=== PATIENT | male | born 1960 | race Caucasian/White ===

== ENCOUNTER 2017-02-27 20:25 | Inpatient (IN) | payer OTHER ==
[~2017-02-27] VITALS: Ht 172.7 cm; Wt 73.0 kg
[2017-02-27] MEDS: NACL 0.9% 1,000 ML IV SCH (02:20)
--- NOTE | 2017-02-27 20:25 | NUR ---
PATIENT BIB ALS TO ER BED 3.
[2017-02-27 20:30] VITALS: BP 76/42
--- NOTE | 2017-02-27 20:32 | NUR ---
50 y/o F BIBA C/O ALOC, LOW BP, WITH FENTANYL AND LIDOCAINE PATCHES AND PARAMEDICS REMOVED, BREATHING TREATMENT WAS GIVEN ENROUTE, BS 160 MG/DL. ER MD AND RT AT BEDSIDE.
--- NOTE | 2017-02-27 20:34 | NUR ---
PATIENT BEING EVALUATED BY DR. HINOJOSA.
[2017-02-27] MEDS ORDERED: NACL 0.9% 2,500 ML IV ONE (20:40)
[2017-02-27] MEDS ORDERED: LEVOFLOXACIN 750 MG/D5W PREMIX 150 ML IV ONE (20:45)
[2017-02-27] MEDS ORDERED: VANCOMYCIN PER PHARMACY MC ONE (20:45)
[2017-02-27] MEDS ORDERED: VANCOMYCIN 1GM/DEXT 5% PREMIX 200 ML IV ONE (20:45)
[2017-02-27 21:27] LABS: BASOPHILS # (AUTO) 0.1 K/uL (0.00-0.22); BASOPHILS % (AUTO) 0.7 % (0.0-2.0); EOSINOPHILS # (AUTO) 0.1 K/uL (0-0.4); HEMATOCRIT 30.5 % (36-52); HEMOGLOBIN 9.6 g/dL (12.0-18.0); LYMPHOCYTES # (AUTO) 0.9 K/uL (2.0-11.5); LYMPHOCYTES % (AUTO) 6.6 % (20.5-51.1); MEAN CORPUSCULAR HEMOGLOBIN 26 pg (27-31); MEAN CORPUSCULAR HGB CONC 32 g/dL (33-37); MEAN CORPUSCULAR VOLUME 82 fL (80-94); MONOCYTES # (AUTO) 1.5 K/uL (0.8-1.0); MONOCYTES % (AUTO) 11.8 % (1.7-9.3); NEUTROPHILS # (AUTO) 10.4 K/uL (1.8-7.7); NEUTROPHILS % (AUTO) 79.9 % (42.2-75.2); PLATELET COUNT (AUTO) 243 K/uL (140-450); RED BLOOD CELL COUNT(AUTO) 3.71 MIL/uL (4.20-6.10); RED CELL DISTRIBUTION WIDTH 14.6 % (11.6-13.7)
[2017-02-27 21:51] LABS: ALBUMIN 3.1 g/dL (3.4-5.0); ANION GAP 7.4 (8-16); CALCIUM 10.1 mg/dL (8.5-10.1); CREATININE 1.9 mg/dL (0.6-1.3); POTASSIUM 5.2 mmol/L (3.5-5.1); TOTAL BILIRUBIN 0.1 mg/dL (0.0-1.0); TOTAL PROTEIN, SERUM 9.1 g/dL (6.4-8.2)
[2017-02-27 22:01] LABS: CARBON DIOXIDE 41.8 mmol/L (21-32)
--- NOTE | 2017-02-27 22:10 | NUR ---
PT PLACED ON VENT PER DR HINOJOSA. AC 16, VT 500, PEEP +5, FI02 40% POST ABG. SUCTIONED MOD AMT OF THICK/THIN PINK TINGED SECRETIONS FOR SPUTUM C/S. TOLERATED WELL. PT HAS A SHILEY 8 TRACH, NO RESP DISTRESS NOTED AT THIS TIME. WILL CONT TO MONITOR.
--- NOTE | 2017-02-27 22:10 | NUR ---
Parris villarreal in ED - 02/28/17 at 0052 by MAJO L SUBCLAVIAN CENTRAL LINE PLACED BI DR HINOJOSA. PT TOLERATED WELL.
--- NOTE | 2017-02-27 22:10 | NUR ---
PT PLACED ON VENTILATOR BY RT.AC 16, VT 500, PEEP5, QRR413%. TRACH WITH A SHILY 8.
[2017-02-27 22:19] LABS: BLOOD GAS BASE EXCESS 10.8 mmol/L (-2.0-2.0); BLOOD GAS HCO3 43.7 mmol/L; BLOOD GAS PH 7.097 (7.35-7.45); BLOOD GAS PO2 242.3 mmHg
[2017-02-27 22:20] LABS: BLOOD GAS O2 SAT% 99.3 % (92.0-98.5)
[2017-02-27 22:21] VITALS: BP 93/54
[2017-02-27] MEDS ORDERED: VANCOMYCIN 1,000 MG VIAL ONE (22:33)
--- NOTE | 2017-02-27 22:45 | NUR ---
L SUBCLAVIAN CENTRAL LINE PLACED BI DR HINOJOSA. PT TOLERATED WELL.
[2017-02-27 22:58] LABS: APPEARANCE,URINE CLEAR (CLEAR); BILIRUBIN,URINE 1+ (NEGATIVE); BLOOD, URINE NEGATIVE (NEGATIVE); COLOR,URINE YELLOW (YELLOW); LEUKOCYTE ESTERASE ,URINE NEGATIVE (NEGATIVE); NITRITE, URINE NEGATIVE (NEGATIVE); PROTEIN,URINE TRACE (NEGATIVE); UGLUCOSE NEGATIVE (NEGATIVE); UROBILINOGEN,URINE 0.2 EU/dL (0.2 - 1)
[2017-02-27 23:11] LABS: BACTERIA,URINE 1+ /HPF (None Seen); ICTOTEST NEGATIVE (NEGATIVE); RBC,URINE 0-5 (RARE) /HPF (0-5); SQUAMOUS EPITHELIAL CELL,UR 4-10 (MOD) /LPF (0-3 (FEW)); WBC,URINE 0-5 (RARE) /HPF (0-5)
[2017-02-27] MEDS ORDERED: ONDANSETRON 4 MG/2 ML VIAL IVP PRN (23:55)
[2017-02-27] MEDS ORDERED: ACETAMINOPHEN 325 MG TAB PO PRN (23:55)
[2017-02-27] MEDS ORDERED: LORazepam 2 MG/ML VIAL IVP PRN (23:55)
[2017-02-28] VITALS (18 sets, daily range): BP systolic 93–139; BP diastolic 46–71
[2017-02-28] MEDS ORDERED: VANCOMYCIN PER PHARMACY MC PRN (00:05)
--- NOTE | 2017-02-28 00:10 | NUR ---
PT AWAKE, TORATING SUPPORT WELL. SUCTIONED SMALL AMT OF THICK YEL, BROWN TINGE SECRETIONS, TOLERATED WELL. ABG DONE RESULTS REPORTED TO DR HINOJOSA.
[2017-02-28 00:26] LABS: BLOOD GAS BASE EXCESS 6.9 mmol/L (-2.0-2.0); BLOOD GAS HCO3 32.8 mmol/L; BLOOD GAS PCO2 55.7 mmHg (20-50); BLOOD GAS PH 7.388 (7.35-7.45); BLOOD GAS PO2 85.1 mmHg
[2017-02-28 00:27] LABS: BLOOD GAS O2 SAT% 96.7 % (92.0-98.5)
[2017-02-28] MEDS ORDERED: NACL 0.9% 2,000 ML IV ONE (00:35)
--- NOTE | 2017-02-28 00:40 | NUR ---
ER NOTIFIED OF BP DROPPED OF 82/47.
--- NOTE | 2017-02-28 01:10 | NUR ---
Patient will be admitted to [facility]. Admited to ICU. Will go to room ICU 1. Belongings list completed. Report to LUIS MCINTYRE.
--- NOTE | 2017-02-28 01:30 | NUR ---
TRANSFERRED TO ICU1 PLACED ON SAME VENT WITH SAME PARAMETERS, TOLERATED WELL.
[2017-02-28] MEDS ORDERED: LISI40TA4 PO (01:33)
[2017-02-28] MEDS ORDERED: FERR75LI22 PO (01:33)
[2017-02-28] MEDS ORDERED: LIDO5TDM3 TP (01:33)
[2017-02-28] MEDS ORDERED: ASPI81CT89 PO (01:33)
[2017-02-28] MEDS ORDERED: FENT25TD TD (01:33)
[2017-02-28] MEDS ORDERED: LACT10SO1 PO (01:33)
[2017-02-28] MEDS ORDERED: CLON0.1T42 PO (01:33)
[2017-02-28] MEDS ORDERED: LANS30EC68 PO (01:33)
[2017-02-28] MEDS ORDERED: CARB1TER4 PO (01:33)
[2017-02-28] MEDS ORDERED: DOCU-67 PO (01:33)
[2017-02-28] MEDS ORDERED: HYDR-4452 PO (01:33)
[2017-02-28] MEDS ORDERED: FLUO10CA21 PO (01:33)
[2017-02-28] MEDS ORDERED: GABA300C PO (01:33)
[2017-02-28] MEDS ORDERED: LORA10TA19 PO (01:35)
[2017-02-28] MEDS ORDERED: LORA-476 PO (01:35)
[2017-02-28] MEDS ORDERED: TRAZ-286 PO (01:38)
[2017-02-28] MEDS ORDERED: MIRABULK PO (01:38)
[2017-02-28] MEDS ORDERED: PIRO10CA PO (01:38)
--- NOTE | 2017-02-28 01:42 | NUR ---
PT TRASFERRED TO ICU VIA GURNEY, ACCOMPANIED BY RT, RN AND EMT.
--- NOTE | 2017-02-28 01:45 | NUR ---
RECEIVED PT TRANSFERRED FROM ER VIA RGIRARD, INITIAL ASSESSMENT STARTED, PT IS AWAKE, APHASIC, NOT ABLE TO FOLLOW COMMANDS AND MAKE NEEDS KNOWN. VSS. FLACC O. TRACH TO VENT WITH SETTING OF FIO2 40, RR 16, TV 500, PEEP 5, NO S/S OF SOB/DISTRESS, CLEAR LUNG SOUNDS. C-COLLAR IN PLACE NOTED, ST ON MONITOR WITH REGULAR HR. SOFT ABDOMEN WITH ACTIVE BOWEL SOUNDS, NPO AT THIS TIME, INCONTINENT WITH B&B'S, SEVERE WEAKNESS TO ALL EXTREMITIES, CENTRAL LINE TO LEFT SUBCLAVIAN, TLC, PATIENT AND GOOD BLOOD RETURN TO EACH LUMEN, RUNNING NS AT 100ML/HR, IV SITE TO RIGHT HAND 20GA, SL. SKIN IS WARM AND DRY TO TOUCH, OPEN WOUND PRESENT, PICTURE TAKEN (SEE WOUND ASSESSMENT). SAFETY MEASURES INPLACE AND HOB ELEVATED TO 30 DEGREES, CALL LIGHT WITHIN REACH, WILL CONTINUE TO MONITOR.
[2017-02-28] MEDS: IPRATROPIUM 0.02% 0.5 MG/2.5 ML NEBU INH SCH ×4 (02:30→19:02)
[2017-02-28] MEDS: ALBUTEROL 0.083% 2.5 MG/3 ML NEBU INH SCH ×4 (02:30→19:02)
--- NOTE | 2017-02-28 03:53 | NUR ---
PAGED AND CALLED DR. TOSCANO, NOTIFIED OF PT'S TEMPERATURE OF 102.3. WITH ORDERS MADE. WILL CONTINUE TO MONITOR.
--- NOTE | 2017-02-28 04:00 | NUR ---
NO CHANGE OF CONDITION AT THIS TIME, VSS. POSITION CHANGED FOR OFFLOAD PRESSURE.
[2017-02-28] MEDS ORDERED: ACETAMINOPHEN 650 MG SUPP RC PRN (04:10)
[2017-02-28] MEDS ORDERED: PIPERACILLIN/TAZOBACTAM 3.375 GM in DEXTROSE 5% 50 ML IV SCH (05:00)
[2017-02-28] MEDS ORDERED: PIPERACILLIN/TAZOBACTAM 3.375 GM VIAL IV ONE (05:19)
[2017-02-28 05:23] LABS: BASOPHILS # (AUTO) 0.1 K/uL (0.00-0.22); HEMATOCRIT 22.9 % (36-52); MONOCYTES # (AUTO) 1.4 K/uL (0.8-1.0); RED CELL DISTRIBUTION WIDTH 14.2 % (11.6-13.7); WHITE BLOOD COUNT (AUTO) 10.9 K/uL (4.8-10.8)
[2017-02-28 05:55] LABS: BASOPHILS % (AUTO) 0.8 % (0.0-2.0); EOSINOPHILS # (AUTO) 0.1 K/uL (0-0.4); LYMPHOCYTES % (AUTO) 9.1 % (20.5-51.1); MEAN CORPUSCULAR HEMOGLOBIN 26 pg (27-31); MEAN CORPUSCULAR HGB CONC 31 g/dL (33-37); MEAN CORPUSCULAR VOLUME 82 fL (80-94); MONOCYTES % (AUTO) 12.4 % (1.7-9.3); NEUTROPHILS # (AUTO) 8.3 K/uL (1.8-7.7); NEUTROPHILS % (AUTO) 76.7 % (42.2-75.2); PLATELET COUNT (AUTO) 164 K/uL (140-450)
[2017-02-28 06:00] LABS: HEMOGLOBIN 7.2 g/dL (12.0-18.0)
--- NOTE | 2017-02-28 06:00 | NUR ---
CRITICAL LAB RESULT WITH HGB7.2, PAGED DR. POWERS AND NEW ORDER OBTAINED AND CARRIED OUT.
[2017-02-28 06:26] LABS: ALBUMIN 2.4 g/dL (3.4-5.0); ANION GAP 9.4 (8-16); CALCIUM 8.8 mg/dL (8.5-10.1); CARBON DIOXIDE 33.5 mmol/L (21-32); CREATININE 1.4 mg/dL (0.6-1.3); POTASSIUM 3.9 mmol/L (3.5-5.1); TOTAL BILIRUBIN 0.2 mg/dL (0.0-1.0)
--- NOTE | 2017-02-28 06:27 | NUR ---
REC'D PT ON [facility] VENT SETTINGS AC16 VT 500 PEEP 5 FIO2 40% ALARMS ON AND FUNCTIONING PROPERLY, AMBU BAG AT SIDE OF VENTILATOR AND VENTILATOR IS PLUGGED INTO RED OUTLET, I\L TX GIVEN WITH ALBUTEROL 2.5MG AND ATROVENT 0.5MG WITH NO ADVERSE REACTION POST TX, SNX PT SMALL AMT OF THIN YELLOW SECRETIONS, PT IS TRACH WITH SHILEY 8 AND SKIN INTEGRITY IS INTACT, PT IS WEARING A C-COLLAR
[2017-02-28] MEDS: MORPHINE SULFATE 2 MG/ML SYR IVP PRN ×4 (06:38→22:16)
--- NOTE | 2017-02-28 07:15 | NUR ---
REPORT GIVEN TO LUIS CHERY FOR CONTINUE OF CARE.
--- NOTE | 2017-02-28 07:30 | NUR ---
RECEIVED REPORT FROM LUIS MCINTYRE. PT IS ALERT AND ORIENTED X 3. ABLE TO MAKE SIMPLE NEEDS KNOWN. SPEECH IS UNCLEAR D/T TRACH. PT IS TRACH TO VENT. A/C VC, FIO2 40%, AC 16, TV 500, PEEP 5. TOLERATED WELL. SUCTION DONE. SUCTIONED MODERATE AMUONT OF THICK YELLOW SPUTUM. ST ON MONITOR. ABLE TO WIGGLE HAND AND FOOT BILATERALLY. EXTREMELY WEAK BUE AND BLE. RANGE IS LIMITED FOR BUE AND BLE. PAIN NOTED WHEN ATTEMPTED ROM. MEDICATED PRIOR TO ASSESSMENT. WILL CONTINUE TO MONITOR. EDEMA NOTED ON BUE. ARM RAISED. SKIN NOT INTACT. LEFT GROIN BLISTER NOTED. DRESSING INTACT. LEFT BUTTOCKS WOUND NOTED. DRESSING CHANGED. CLEAN AND INTACT. R HAND 20 GUAGE IV NOTED. INTACT AND PATENT. SALINE LOCKED. LEFT SUBCLAVIAN TRIPLE LUMEN CENTRAL LINE NOTED. INTACT AND PATENT. SAFETY AND ASPIRATION PRECAUTION IN PLACED. WILL CONTINUE TO MONITOR
--- NOTE | 2017-02-28 08:10 | NUR ---
ABG DRAWN ON RR WITHOUT INCIDENT AND RESULTS CALLED AND READ TO DR. POWERS WITH CHANGE MADE TO FIO2 DECREASED TO 30% AND LUIS CHERY.
--- NOTE | 2017-02-28 08:12 | NUR ---
ATTEMPTED TO PAGE DR. PEREZ. WAS TOLD DR. POWERS TILE LAYER DRAINAGE. WILL RECEIVE CALL BACK FROM DR. POWERS.
[2017-02-28 08:16] LABS: BLOOD GAS BASE EXCESS 3.7 mmol/L (-2.0-2.0); BLOOD GAS HCO3 27.6 mmol/L; BLOOD GAS O2 SAT% 98.5 % (92.0-98.5); BLOOD GAS PCO2 38.6 mmHg (20-50); BLOOD GAS PH 7.472 (7.35-7.45)
--- NOTE | 2017-02-28 08:16 | NUR ---
RECEIVED CALL BACK FROM DR. POWERS. REPORT GIVEN REGARDING BLOOD TRANSFUSION CONSENT AND LOVENOX ORDER WELL SCD ORDERS. WILL CARRY OUT NEW ORDERS.
--- NOTE | 2017-02-28 08:21 | NUR ---
PATIENT HAS BEEN SCREENED AND CATEGORIZED HIGH NUTRITION RISK. PATIENT WILL BE SEEN WITHIN 1-2 DAYS OF ADMISSION. 02/28/17-03/01/[address]
[2017-02-28] MEDS ORDERED: ENOXAPARIN 40 MG/0.4 ML SYR SUBQ SCH (09:00)
--- NOTE | 2017-02-28 09:00 | NUR ---
VENT CHECK, PT IS AWAKE WITH NO SIGNS OF DISTRESS NOTED AT THIS TIME, NO SXN REQUIRED AT THIS TIME, AIRWAY IS PATENT
--- NOTE | 2017-02-28 09:05 | NUR ---
MEDICATION GIVEN. TOLERATED WELL. PERIPHERAL IV INTACT AND PATENT. CENTRAL LINE INTACT AND PATENT.
[2017-02-28] MEDS: PANTOPRAZOLE 40 MG INJ VIAL IVP SCH (09:07)
[2017-02-28] MEDS: NACL 0.9% 1,000 ML IV SCH ×2 (09:52→20:14)
--- NOTE | 2017-02-28 10:40 | NUR ---
DR. POWERS AT BEDSIDE TO SEE PATIENT. WILL FOLLOW UP WITH NEW ORDERS
[2017-02-28] MEDS ORDERED: HYDROcodone/APAP 10/325 MG 1 TAB TAB PO SCH (10:50)
[2017-02-28] MEDS ORDERED: DEXTROSE 50% 50 ML SYR IVP PRN (10:50)
[2017-02-28] MEDS ORDERED: cloNIDine 0.1 MG TAB PO PRN (10:50)
[2017-02-28] MEDS ORDERED: INSULIN LISPRO SLIDING SCALE 100 UNITS/ML VIAL SUBQ PRN (10:50)
[2017-02-28] MEDS ORDERED: POLYETHYLENE GLYCOL 17 GM/PKT PO PRN (10:50)
[2017-02-28] MEDS ORDERED: MILD SOAP AND WATER TP PRN (11:00)
[2017-02-28] MEDS ORDERED: Z-GUARD PASTE TP PRN (11:00)
[2017-02-28] MEDS ORDERED: COMPOSITE DRESSING TP PRN (11:00)
[2017-02-28] MEDS ORDERED: NACL 0.9% IRR 250 ML BOTTLE IR PRN (11:00)
--- NOTE | 2017-02-28 11:03 | NUR ---
VENT CHECK, SXN PT SMALL AMT OF THIN YELLOW SECRETIONS DR. POWERS WANTS PT TO BE PLACED ON CPAP IF PT DOESNT GO APNEIC THEN PLACED ON TBAR
--- NOTE | 2017-02-28 11:12 | NUR ---
PT WAS GIVEN ATIVAN AND MORPHINE I INFORMED DR. POWERS AND ORDERED TO TRY CPAP AT 1400
--- NOTE | 2017-02-28 11:15 | NUR ---
NGT INSERTED FROM RIGHT NOSTRIL. TOLERATED WELL. AUSCULTATE FOR PLACEMENT. MINIMAL GREENISH RESIDUAL NOTED.
--- NOTE | 2017-02-28 11:30 | NUR ---
GLOBE MOUNTER AT BEDSIDE.
[2017-02-28] MEDS: BLOOD GLUCOSE MONITORING 1 DEV DEV FS SCH ×3 (11:38→21:12)
--- NOTE | 2017-02-28 11:40 | NUR ---
NOTIFIED PT OF BLOOD TRANSFUSION. PT VERBALIZED UNDERSTANDING. VERBAL CONSENT RECEIVED. PT UNABLE TO SIGN D/T SEVERE WEAKNESS OF EXTREMITIES. NO NEXT OF KIN AVAILABLE. AWARE.
[2017-02-28] MEDS: LORazepam 1 MG TAB GT SCH ×3 (12:00→23:23)
--- NOTE | 2017-02-28 12:05 | NUR ---
BLOOD TRANSFUSION STARTED. WILL CONTINUE TO MONITOR PER PROTOCOL.
--- NOTE | 2017-02-28 12:20 | NUR ---
ASSESS PT. V/S ARE STABLE. NO S/SX OF ACUTE DISTRESS NOTED. WILL CONTINUE TO MONITOR
[2017-02-28] MEDS: GABAPENTIN 300 MG CAP GT SCH ×2 (12:26→21:13)
[2017-02-28] MEDS: CARBIDOPA/LEVODOPA 25/100 MG 1 TAB GT SCH ×2 (12:26→16:09)
[2017-02-28] MEDS: FERROUS SULFATE 300 MG/5 ML UDC GT SCH ×2 (12:26→16:09)
--- NOTE | 2017-02-28 12:33 | NUR ---
MEDICATION GIVEN THROUGH NG TUBE. TOLERATED WELL. WILL CONTINUE TO MONITOR
--- NOTE | 2017-02-28 12:35 | NUR ---
ASSESS PT. V/S ARE STABLE. NO S/SX OF ACUTE DISTRESS. PT WAS AWAKE AND VERBALIZE NO PAIN
[2017-02-28] MEDS: PIPER/TAZO 3.375GM/D5W PREMIX 50 ML IV SCH ×2 (12:42→21:10)
--- NOTE | 2017-02-28 12:47 | NUR ---
VENT CHECK, I\L TX GIVEN WITH ALBUTEROL 2.5MG AND ATROVENT 0.5MG WITH NO ADVERSE REACTION POST TX B\S ARE DIMINISHED AND AIRWAY IS PATENT
--- NOTE | 2017-02-28 12:55 | NUR ---
STARTED PT ON NG TUBE FEEDING, PLACEMENT CHECKED. NO DISCOMFORT NOTED AT THIS TIME. WILL CONTINUE TO MONITOR.
[2017-02-28] MEDS: Z-GUARD PASTE TP SCH (13:00)
[2017-02-28] MEDS: MILD SOAP AND WATER TP SCH (13:00)
[2017-02-28] MEDS: NACL 0.9% IRR 250 ML BOTTLE IR SCH (13:00)
[2017-02-28] MEDS: COMPOSITE DRESSING TP SCH (13:00)
--- NOTE | 2017-02-28 14:15 | NUR ---
PT PLACED ON CPAP 5 PS 10 FIO2 30% PT IS SLEEPING WITH NO SIGNS OF DISTRESS NOTED AT THIS TIME
--- NOTE | 2017-02-28 14:17 | NUR ---
02/28/17 RD INITIAL ASSESSMENT COMPLETED PLEASE REFER TO NUTRITION ASSESSMENT UNDER CARE ACTIVITY FOR ESTIMATED NUTRITIONAL NEEDS. RD RECOMMENDATIONS: 1. CONTINUE DIABETISOURCE AC AT 10 ML/HR MEDICALLY APPROPRIATE PER MD. IF/WHEN PT PASSES SWALLOW EVAL, CONSIDER 2 GM NA DIET WITH TEXTURE RECOMMENDATIONS PER ST. 2. IF PT DOES NOT PASS SWALLOW EVAL AND TO REMAIN ON TUBEFEEDING, CONSIDER INCREASING DIABETISOURCE AC TOLERATED TO GOAL OF 65 ML/HR WITH 200 ML OF FREE WATER FLUSH Q6H OR PER MD. AT GOAL RATE WITH FREE WATER FLUSH, TUBE FEEDING WILL PROBIDE 1560 ML TOTAL VOLUME, 1872 KCAL, 93 GM OF PROTEIN, AND 2276 ML OF FREE WATER (ADEQUATE TO MEET 91% OF ESTIMATED KCAL AND PROTEIN NEEDS). 3. RD WILL CONSIDER MICRONUTRIENT SUPPLEMENTATION FOR WOUND HEALING DURING FOLLOW UP VISIT OR PER WOUND CARE EVALUATION. 4. RD WILL F/U 2-3 DAYS; HIGH RISK. CARRIE CUEVAS RD
--- NOTE | 2017-02-28 15:05 | NUR ---
PT PLACED ON COOL AEROSOL AT 30% T-PIECE HR 95 RR 21 O2 SAT 97% PT IS RESTING WITH NO SIGNS OF DISTRESS IF PT SHOWS SIGNS OF DISTRESS PLACE BACK ON VENT WITH AC 16 VT500 PEEP 5 FIO2 30%.
--- NOTE | 2017-02-28 16:04 | NUR ---
FIRST BAG OF RED BLOOD CELLS DONE. NO REACTION NOTED, NO FEVER.VSS AT THIS TIME.
--- NOTE | 2017-02-28 16:30 | NUR ---
STARTED PT ON THE SECOND BAG OF RED BLOOD CELLS, NO S/S OF RESPIRATORY DISTRESS NOTED, NO FEVER. WILL CONTINUE TO MONITOR.
--- NOTE | 2017-02-28 18:27 | NUR ---
PT RESTING IN BED, NO S/S OF RESPIRATORY DISTRESS NOTED. SUCTIONED PT WITH SMALL AMOUNT OF SECRETION. BLOOD TRANSFUSION IN PROGRESS, NO REACTION NOTED. CALL LIGHT IN REACH, WILL CONTINUE TO MONITOR.
--- NOTE | 2017-02-28 19:35 | NUR ---
RECEIVED REPORT FROM VIK SMITH. PATIENT IS AWAKE, ALERT, AND RESTING IN BED. PATIENT IS NONVERBAL. PATIENT IS ABLE TO NOD HEAD YES OR SHAKE HEAD NO TO QUESTIONS. NO SIGNS OF RESPIRATORY DISTRESS NOTED. PATIENT IS TRACH TO T-PIECE RECEIVING COOL AEROSOLIZED MIST AT 8LPM. BREATH SOUNDS ARE DIMINISHED AND BOWEL SOUNDS ARE ACTIVE. THERE IS A NGT IN THE PATIENT'S RIGHT NARES RECEIVING DIABETESOURCE AT 10 ML/HR. THERE IS A #20 IN THE RIGHT HAND SALINE LOCKED AND THERE IS A TRIPLE LUMEN CATHETER IN THE LEFT SUBCLAVIAN. PATIENT IS RECEIVING PACKED RED BLOOD CELLS INFUSION. SITE IS DRY, INTACT, AND ASYMPTOMATIC. VITALS ARE STABLE AND PATIENT IS AFEBRILE. NO SIGNS OF PAIN OR DISCOMFORT. HOB AT 30 DEGREES WITH LOW POSITION. WILL CONTINUE TO MONITOR PATIENT. Addendum: 02/28/17 at 1939 by Jess Barber RN SCDS ARE IN PLACE FOR VTE PROPHYLAXIS.
[2017-02-28] MEDS ORDERED: LANSOPRAZOLE 30 MG CAPDR PO SCH (21:00)
[2017-02-28] MEDS ORDERED: traZODone 50 MG TAB PO SCH (21:00)
[2017-02-28] MEDS ORDERED: LACTULOSE 20 GM/30 ML UDC GT SCH (21:00)
[2017-02-28] MEDS ORDERED: DOCUSATE 100 MG/10 ML UDC GT SCH (21:00)
[2017-02-28] MEDS ORDERED: VANCOMYCIN 1GM/DEXT 5% PREMIX 200 ML IV SCH (21:00)
[2017-02-28] MEDS: PIROXICAM 10 MG CAP GT SCH (21:13)
--- NOTE | 2017-02-28 21:21 | NUR ---
PATIENT TOLERATED SCHEDULED MEDICATIONS. NO SIGNS OF RESPIRATORY DISTRESS OR DISCOMFORT NOTED. BLOOD SUGAR IS 101. NO INSULIN COVERAGE NEEDED AT THIS TIME. HOB AT 30 DEGREES WITH BED IN LOW POSITION. WILL CONTINUE TO MONITOR PATIENT.
--- NOTE | 2017-02-28 22:00 | NUR ---
PATIENT VOIDED LARGE AMOUNT OF CLEAR YELLOW URINE ON PERIPAD. PERINEAL CARE AND BED BATH PROVIDED. CHANGED PATIENT'S GOWN AND LINENS. REPOSITIONED PATIENT TO OFFLOAD PRESSURE AREAS. HOB AT 30 DEGREES WITH BED IN LOW POSITION. CONTINUE TO MONITOR PATIENT.
[2017-03-01] VITALS (19 sets, daily range): BP systolic 118–162; BP diastolic 59–98
--- NOTE | 2017-03-01 | NUR ---
PATIENT RESTING IN BED. NO SIGNS OF RESPIRATORY DISTRESS NOTED. HOB AT 30 DEGREES WITH BED IN LOW POSITION. WILL CONTINUE TO MONITOR PATIENT.
[2017-03-01] MEDS: ALBUTEROL 0.083% 2.5 MG/3 ML NEBU INH SCH ×4 (01:29→19:18)
[2017-03-01] MEDS: IPRATROPIUM 0.02% 0.5 MG/2.5 ML NEBU INH SCH ×4 (01:30→19:18)
[2017-03-01] MEDS: MILD SOAP AND WATER TP SCH ×2 (01:51→13:14)
[2017-03-01] MEDS: Z-GUARD PASTE TP SCH ×2 (01:51→13:14)
--- NOTE | 2017-03-01 02:00 | NUR ---
ROUNDED ON PATIENT. PATIENT RESTING COMFORTABLY IN BED WITH NO SIGNS OF RESPIRATORY DISTRESS NOTED. HOB AT 30 DEGREES WITH BED IN LOW POSITION. CONTINUE TO MONITOR PATIENT.
--- NOTE | 2017-03-01 03:45 | NUR ---
UNABLE TO DO TRACH CARE/ASSESSMENT DUE TO PT HAVING C-COLLAR AROUND HIS NECK. UNABLE TO REMOVE AT THIS TIME, RN WILL CLARIFY WITH DR IF OK TO REMOVE.
[2017-03-01] MEDS: MORPHINE SULFATE 2 MG/ML SYR IVP PRN ×5 (04:01→21:28)
[2017-03-01] MEDS: GABAPENTIN 300 MG CAP GT SCH ×3 (04:57→21:12)
[2017-03-01] MEDS: PIPER/TAZO 3.375GM/D5W PREMIX 50 ML IV SCH ×3 (04:58→21:12)
--- NOTE | 2017-03-01 05:10 | NUR ---
CROP ROLLER AT BEDSIDE FOR SCHEDULED LAB DRAWS.
--- NOTE | 2017-03-01 05:15 | NUR ---
PATIENT HAD LARGE BM OF BROWNISH GREEN COLOR. PERINEAL AND MORNING CARE PROVIDED. PATIENT REPOSITIONED TO OFFLOAD PRESSURE AREAS. HOB AT 30 DEGREES WITH BED IN LOW POSITION. CONTINUE TO MONITOR PATIENT.
--- NOTE | 2017-03-01 05:30 | NUR ---
RESPIRATORY THERAPIST AT BEDSIDE.
[2017-03-01] MEDS: NACL 0.9% 1,000 ML IV SCH ×2 (05:52→16:28)
[2017-03-01 06:04] LABS: ANION GAP 9.7 (8-16); CALCIUM 8.8 mg/dL (8.5-10.1); CREATININE 1.1 mg/dL (0.6-1.3); POTASSIUM 3.7 mmol/L (3.5-5.1)
[2017-03-01 06:08] LABS: MAGNESIUM 1.4 mg/dL (1.8-2.4); PHOSPHORUS 1.9 mg/dL (2.5-4.9)
[2017-03-01 06:11] LABS: BASOPHILS # (AUTO) 0.1 K/uL (0.00-0.22); BASOPHILS % (AUTO) 1.2 % (0.0-2.0); EOSINOPHILS # (AUTO) 0.6 K/uL (0-0.4); EOSINOPHILS % (AUTO) 5.5 % (0.0-4.0); HEMATOCRIT 30.8 % (36-52); HEMOGLOBIN 9.9 g/dL (12.0-18.0); LYMPHOCYTES # (AUTO) 1.4 K/uL (2.0-11.5); LYMPHOCYTES % (AUTO) 12.4 % (20.5-51.1); MEAN CORPUSCULAR HEMOGLOBIN 26 pg (27-31); MEAN CORPUSCULAR HGB CONC 32 g/dL (33-37); MEAN CORPUSCULAR VOLUME 82 fL (80-94); MONOCYTES # (AUTO) 1.4 K/uL (0.8-1.0); NEUTROPHILS # (AUTO) 7.4 K/uL (1.8-7.7); NEUTROPHILS % (AUTO) 67.9 % (42.2-75.2); PLATELET COUNT (AUTO) 148 K/uL (140-450); RED BLOOD CELL COUNT(AUTO) 3.75 MIL/uL (4.20-6.10); RED CELL DISTRIBUTION WIDTH 14.7 % (11.6-13.7); WHITE BLOOD COUNT (AUTO) 10.9 K/uL (4.8-10.8)
[2017-03-01] MEDS: LORazepam 1 MG TAB GT SCH ×3 (06:23→17:22)
[2017-03-01] MEDS: BLOOD GLUCOSE MONITORING 1 DEV DEV FS SCH ×4 (06:27→21:05)
--- NOTE | 2017-03-01 06:44 | NUR ---
RECEIVED PT ON T-PIECE AT 30 % PTS CHERI HERRING 8 IS SECURE PT IN HF ASLEEP BS RHONCI I\L LAVAGE AND SX MOD YELLOW DRAIN H2O BAG I\L HHN GIVEN WITH 2.5 MG ALBUTEROL AND 0.5 MG ATROVENT PT IS WEARING CERVICAL COLLAR VENT ON STAND-BY
--- NOTE | 2017-03-01 07:11 | NUR ---
PATIENT IN STABLE CONDITION. ENDORSED CONTINUITY OF CARE TO VIK SMITH.
--- NOTE | 2017-03-01 07:30 | NUR ---
RECEIVED REPORT FROM LUIS VAZQUEZ. PT IS AWAKE, ALERT. ABLE TO MAKE SIMPLE COMMANDS. PT IS TRACH TO T-PIECE. NG TUBE FEEDING DIABETISOURCE AT 10 ML/HR, TOLERATED WELL, NO RESIDUAL NOTED. EXTREMELY WEAK BUE AND BLE. RANGE IS LIMITED FOR BUE AND BLE. PAIN NOTED WHEN ATTEMPTED ROM. EDEMA NOTED ON BUE. SKIN NOT INTACT( SEE WOUND ASSESSMENT) . CENTRAL CATH LINE TO LEFT SUBCLAVIAN, SITE LEAKING, WILL CHANGE DRESSING. CALL LIGHT IN REACH, HOB ELEVATED 30 DEGREES WITH LOW BED POSITION, WILL CONTINUE TO MONITOR.
[2017-03-01] MEDS: PIROXICAM 10 MG CAP GT SCH ×2 (08:56→21:12)
[2017-03-01] MEDS: PANTOPRAZOLE 40 MG INJ VIAL IVP SCH (08:58)
[2017-03-01] MEDS: ASPIRIN 81 MG TAB.CHEW GT SCH (08:58)
[2017-03-01] MEDS: CARBIDOPA/LEVODOPA 25/100 MG 1 TAB GT SCH ×3 (08:59→16:34)
[2017-03-01] MEDS: LISINOPRIL 20 MG TAB PO SCH (08:59)
[2017-03-01] MEDS: LORATADINE 10 MG TAB GT SCH (08:59)
[2017-03-01] MEDS: FERROUS SULFATE 300 MG/5 ML UDC GT SCH ×3 (08:59→16:34)
[2017-03-01] MEDS: LIDOCAINE 5% 1 EA PATCH TP SCH (09:00)
[2017-03-01] MEDS ORDERED: LISINOPRIL 20 MG TAB PO SCH (09:00)
[2017-03-01] MEDS ORDERED: MAG SULF 2000 MG/WATER PREMIX 50 ML IV SCH (09:00)
[2017-03-01] MEDS: FLUoxetine 10 MG CAP GT SCH (09:00)
[2017-03-01 09:06] LABS: BLOOD GAS PH 7.339 (7.35-7.45)
[2017-03-01 09:07] LABS: BLOOD GAS PCO2 54.3 mmHg (20-50)
[2017-03-01 09:08] LABS: BLOOD GAS HCO3 28.6 mmol/L; BLOOD GAS O2 SAT% 87.4 % (92.0-98.5); BLOOD GAS PO2 53.3 mmHg
--- NOTE | 2017-03-01 09:11 | NUR ---
RETURNED PT TO [facility] ON A/C 16 VT 500 PEEP 5 FIO2 30 ALARMS ARE ON AND FUNCTIONAL PTS CHERI HERRING 8 IS SECURE BS DIMINISHED PT IN HF ASLEEP WEARING CERVICAL COLLAR VENT PLUGGED INTO RED OUTLET PLACED POST ABG DR JARED WEBB
--- NOTE | 2017-03-01 09:20 | NUR ---
DUE MEDS GIVEN, TOLERATED WELL. ORIENTED PT ENVIRONMENT.
[2017-03-01] MEDS ORDERED: LACTULOSE 20 GM/30 ML UDC GT PRN (09:50)
[2017-03-01] MEDS ORDERED: DOCUSATE 100 MG/10 ML UDC GT PRN (09:50)
--- NOTE | 2017-03-01 09:53 | NUR ---
REMOVE PT FROM VENT PER DR COLEMAN PLACE ON 30 T-PIECE DURING DAY NOC VENTILATOR HR 88 SPO2 92 RR 24 PT ALERT
--- NOTE | 2017-03-01 10:10 | NUR ---
DR. POWERS IN TO ASSESS PT. UPDATED PT' S CONDITION, WILL FOLLOW UP.
[2017-03-01] MEDS ORDERED: PROBIOTIC SCREEN 1 EA MISC MC PRN (12:55)
[2017-03-01] MEDS: VANCOMYCIN 1GM/DEXT 5% PREMIX 200 ML IV SCH (13:13)
[2017-03-01] MEDS: COMPOSITE DRESSING TP SCH (13:13)
[2017-03-01] MEDS: NACL 0.9% IRR 250 ML BOTTLE IR SCH (13:14)
--- NOTE | 2017-03-01 13:30 | NUR ---
PT DESAT TO 83%, SUCTIONED PT, INCREASED TO 85%, CALLED RT.
--- NOTE | 2017-03-01 13:32 | NUR ---
CALLED TO ICU PT DESAT TO 83 INCREASED FIO2 TO 40 T-PIECE SPO2 86-87 PT STATED DIFFICULTY BREATHING RETURNED VENT PREVIOUS SETTINGS SPO2 IMPROVED PT MORE COMFORTABLE
--- NOTE | 2017-03-01 14:05 | NUR ---
TURNED AND REPOSITIONED PT. NO S/S OF RESPIRATORY DISTRESS NOTED. WILL CONTINUE TO MONITOR.
--- NOTE | 2017-03-01 15:08 | NUR ---
VENT CHECK BS DIMINISHED I\L LAVAGE AND SX SM YELLOW
--- NOTE | 2017-03-01 16:44 | NUR ---
PT SLEEPING AT THIS TIME. BEDSIDE MONITOR SHOWS SR, PT TRACH TO VENT, NO S/S OF RESPIRATORY DISTRESS NOTED. BLOOD SUGAR CHECKED , NO INSULIN COVERAGE NEEDED.
--- NOTE | 2017-03-01 17:03 | NUR ---
VENT CHECK BS DIMINISHED PT ASLEEP
--- NOTE | 2017-03-01 18:58 | NUR ---
MODERATE AMOUNT OF URINE STAIN NOTED ON PADS, CLEANED PT. BED SHEET ANG GOWN CHANGED.VSS, NO S/S OF RESPIRATORY DISTRESS NOTED.
--- NOTE | 2017-03-01 19:23 | NUR ---
RECEIVED REPORT FROM VIK SMITH. PATIENT IS RESTING COMFORTABLY IN BED. NO SIGNS OF RESPIRATORY DISTRESS NOTED. PATIENT IS TRACH TO VENT WITH SETTINGS OF FIO2 30%, TV 500, A/C 16, AND PEEP 5. RHONCHI HEARD ON AUSCULTATION AND BOWEL SOUNDS ARE ACTIVE. THERE IS A NGT IN THE RIGHT NARES RECEIVING DIABETESOURCE AT 40 ML/HR. PATIENT TOLERATING FEEDING WELL WITH 5 ML OF RESIDUAL NOTED. VITAL SIGNS ARE STABLE, FLACC 0. THERE IS A #20 IN THE RIGHT HAND SALINE LOCKED AND THERE IS A TRIPLE LUMEN CATHETER IN THE LEFT SUBCLAVIAN WITH NORMAL SALINE RUNNING AT 100 ML/HR. SITE IS DRY, INTACT, AND ASYMPTOMATIC. SCDS ARE IN PLACE FOR VTE PROPHYLAXIS. RESPIRATORY AT BEDSIDE TO ADMINISTER SCHEDULED BREATHING TREATMENT.
--- NOTE | 2017-03-01 21:31 | NUR ---
TOLERATED DUE MEDICATIONS. PATIENT VOIDED ON PERIPAD. PERINEAL CARE PROVIDED. PATIENT REPOSITIONED FOR COMFORT. VAP ORAL CARE RENDERED. NO SIGNS OF RESPIRATORY DISTRESS NOTED. FLACC 5. ADMINISTERED MORPHINE 2MG IVP PRN ORDERED. WILL CONTINUE TO MONITOR PATIENT.
[2017-03-02] VITALS (16 sets, daily range): BP systolic 106–164; BP diastolic 46–82
[2017-03-02] MEDS: NACL 0.9% 1,000 ML IV SCH ×3 (00:15→13:18)
[2017-03-02] MEDS: LORazepam 1 MG TAB GT SCH ×4 (00:17→17:53)
--- NOTE | 2017-03-02 00:20 | NUR ---
REPOSITIONED PATIENT FOR COMFORT. VAP ORAL RENDERED. NO SIGNS OF RESPIRATORY DISTRESS NOTED. HOB AT 30 DEGREES WITH BED IN LOW POSITION. WILL CONTINUE TO MONITOR PATIENT.
[2017-03-02] MEDS: IPRATROPIUM 0.02% 0.5 MG/2.5 ML NEBU INH SCH ×4 (00:44→18:52)
[2017-03-02] MEDS: ALBUTEROL 0.083% 2.5 MG/3 ML NEBU INH SCH ×4 (00:44→18:52)
[2017-03-02] MEDS: VANCOMYCIN 1GM/DEXT 5% PREMIX 200 ML IV SCH (01:10)
[2017-03-02] MEDS: MILD SOAP AND WATER TP SCH ×2 (01:11→13:18)
[2017-03-02] MEDS: Z-GUARD PASTE TP SCH ×2 (01:11→13:19)
[2017-03-02] MEDS: MORPHINE SULFATE 2 MG/ML SYR IVP PRN ×6 (01:13→23:02)
--- NOTE | 2017-03-02 01:15 | NUR ---
PATIENT ABLE TO SPEAK OVER TRACH AND STATED "PAIN ALL OVER". BLOOD PRESSURE IS 135/79 AND HR 82. ADMINISTERED MORPHINE 2MG IVP PRN. WILL CONTINUE TO MONITOR PATIENT
--- NOTE | 2017-03-02 02:08 | NUR ---
ROUNDED ON PATIENT. PATIENT RESTING COMFORTABLY IN BED WITH NO SIGNS OF RESPIRATORY DISTRESS NOTED. HOB AT 30 DEGREES WITH BED IN LOW POSITION. WILL CONTINUE TO MONITOR PATIENT.
--- NOTE | 2017-03-02 05:15 | NUR ---
PATIENT VOIDED ON PERIPAD. MORNING AND PERINEAL CARE PROVIDED. BED BATH PROVIDED. CHANGED BED LINENS AND GOWN. VAP ORAL CARE RENDERED. PATIENT REPOSITIONED TO OFFLOAD PRESSURE AREAS. NO SIGNS OF RESPIRATORY DISTRESS NOTED. HOB AT 30 DEGREES WITH BED IN LOW POSITION. WILL CONTINUE TO MONITOR PATIENT.
[2017-03-02] MEDS: PIPER/TAZO 3.375GM/D5W PREMIX 50 ML IV SCH ×3 (05:33→21:24)
[2017-03-02] MEDS: GABAPENTIN 300 MG CAP GT SCH ×3 (05:33→21:23)
[2017-03-02 06:11] LABS: BASOPHILS # (AUTO) 0.1 K/uL (0.00-0.22); BASOPHILS % (AUTO) 1.4 % (0.0-2.0); EOSINOPHILS # (AUTO) 0.8 K/uL (0-0.4); EOSINOPHILS % (AUTO) 7.9 % (0.0-4.0); HEMATOCRIT 27.4 % (36-52); HEMOGLOBIN 8.9 g/dL (12.0-18.0); LYMPHOCYTES # (AUTO) 1.4 K/uL (2.0-11.5); LYMPHOCYTES % (AUTO) 14.2 % (20.5-51.1); MEAN CORPUSCULAR HEMOGLOBIN 26 pg (27-31); MEAN CORPUSCULAR HGB CONC 33 g/dL (33-37); MEAN CORPUSCULAR VOLUME 81 fL (80-94); MONOCYTES # (AUTO) 1.2 K/uL (0.8-1.0); MONOCYTES % (AUTO) 12.1 % (1.7-9.3); NEUTROPHILS # (AUTO) 6.3 K/uL (1.8-7.7); NEUTROPHILS % (AUTO) 64.4 % (42.2-75.2); PLATELET COUNT (AUTO) 137 K/uL (140-450); RED BLOOD CELL COUNT(AUTO) 3.37 MIL/uL (4.20-6.10); RED CELL DISTRIBUTION WIDTH 14.9 % (11.6-13.7); WHITE BLOOD COUNT (AUTO) 9.8 K/uL (4.8-10.8)
--- NOTE | 2017-03-02 06:11 | NUR ---
RAD RADIOLOGY AIDE AT BEDSIDE FOR SCHEDULED PROCEDURE.
[2017-03-02 06:27] LABS: ANION GAP 8.4 (8-16); CALCIUM 8.4 mg/dL (8.5-10.1); POTASSIUM 3.4 mmol/L (3.5-5.1)
--- NOTE | 2017-03-02 06:29 | NUR ---
REC'D PT ON [facility] SETTINGS AC 16 VT 500 PEEP 5 FIO2 30% ALARMS ON AND FUNCTIONING PROPERLY AMBU BAG AT SIDE OF VENTILATOR AND VENTILATOR IS PLUGGED INTO RED OUTLET, I\L TX GIVEN WITH ALBUTEROL 2.5MG AND ATROVENT 0.5MG WITH NO ADVERSE REACTION POST TX B\S ARE DIMINISHED BILATERALLY, SNX PT SMALL AMT OF YELLOW THIN SECRETIONS, PT IS TRACH WITH SHILEY 8 AND SKIN INTEGRITY IS INTACT AND PT HAS C-COLLAR ON PT IS AWAKE AND ALERT WITH NO SIGNS OF DISTRESS NOTED AT THIS TIME
[2017-03-02 06:33] LABS: MAGNESIUM 1.7 mg/dL (1.8-2.4)
[2017-03-02 06:34] LABS: PHOSPHORUS 0.7 mg/dL (2.5-4.9)
[2017-03-02] MEDS: BLOOD GLUCOSE MONITORING 1 DEV DEV FS SCH ×4 (06:37→21:19)
[2017-03-02] MEDS ORDERED: POTASSIUM PHOSPHATE 30 MM in DEXTROSE 5% 250 ML IV ONE (06:50)
[2017-03-02] MEDS ORDERED: MAG SULF 2000 MG/WATER PREMIX 50 ML IV ONE (06:50)
--- NOTE | 2017-03-02 07:09 | NUR ---
PATIENT IN STABLE CONDITION. ALL PATIENT'S NEEDS ATTENDED TO DURING SHIFT. ENDORSED CONTINUITY OF CARE TO VIK SMITH.
--- NOTE | 2017-03-02 07:25 | NUR ---
RECEIVED REPORT FROM LUIS VAZQUEZ. PT IS AWAKE, ALERT. REORIENTED PT ENVIRONMENT.ABLE TO MAKE SIMPLE NEEDS KNOWN. BEDSIDE MONITOR SHOWS SR.PT IS TRACH TO VENT FIO2 30%,TV 500, AC 16, PEEP 5, NO S/S OF RESPIRATORY DISTRESS NOTED. NG TUBE FEEDING DIABETISOURCE AT 40 ML/HR, TOLERATED WELL, 20ML RESIDUAL NOTED, RETURNED IT BACK.PT ABLE TO MOVE RIGHT UPPER ARM. RANGE IS LIMITED.PAIN NOTED WHEN ATTEMPTED ROM. EDEMA NOTED ON BUE. SKIN NOT INTACT( SEE WOUND ASSESSMENT) . CENTRAL CATH LINE TO LEFT SUBCLAVIAN RUNNING 0.9 NS AT 100 ML/HR. POC EXPLAINED TO PT, PT VERBALIZED UNDERSTANDING.CALL LIGHT IN REACH, HOB ELEVATED 30 DEGREES WITH LOW BED POSITION, WILL CONTINUE TO MONITOR.
--- NOTE | 2017-03-02 08:02 | NUR ---
PT OFF VENTILATOR AND PLACED ON T-PIECE AT 40% RN VIK NOTIFIED OF CHANGES MADE
--- NOTE | 2017-03-02 08:20 | NUR ---
PT TOLERATED TUBE FEEDING WELL, CHANGED FEEDING BAG AND NEW TUBE AT THIS SAME RATE 40ML/HR.WILL CONTINUE TO MONITOR PT.
[2017-03-02] MEDS ORDERED: POTASSIUM PHOSPHATE 15 MM, MAGNESIUM SULFATE 50% 2,000 MG in NACL 0.9% 250 ML IV SCH (09:00)
--- NOTE | 2017-03-02 09:30 | NUR ---
DUE MEDS GIVEN, TOLERATED WELL.
[2017-03-02] MEDS: FERROUS SULFATE 300 MG/5 ML UDC GT SCH ×3 (09:31→16:21)
[2017-03-02] MEDS: PANTOPRAZOLE 40 MG INJ VIAL IVP SCH (09:31)
[2017-03-02] MEDS: LACTOBACILLUS RHAMNOSUS GG 1 EACH CAP PO SCH (09:31)
[2017-03-02] MEDS: LISINOPRIL 20 MG TAB PO SCH (09:32)
[2017-03-02] MEDS: LORATADINE 10 MG TAB GT SCH (09:32)
[2017-03-02] MEDS: CARBIDOPA/LEVODOPA 25/100 MG 1 TAB GT SCH ×3 (09:32→16:21)
[2017-03-02] MEDS: ASPIRIN 81 MG TAB.CHEW GT SCH (09:32)
[2017-03-02] MEDS: PIROXICAM 10 MG CAP GT SCH ×2 (09:33→21:23)
[2017-03-02] MEDS: FLUoxetine 10 MG CAP GT SCH (09:33)
[2017-03-02] MEDS: LIDOCAINE 5% 1 EA PATCH TP SCH (09:37)
[2017-03-02] MEDS: SODIUM PHOS / POTASSIUM PHOS 1 PKT PDR NG SCH ×4 (09:46→17:53)
--- NOTE | 2017-03-02 12:15 | NUR ---
IN TO ASSESS PT. UPDATED PT URINE INCONTINENT, PER DR. PWOERS. PLACE PT ON CONDOM CATH AND DOWNGRADE PT TO TELE STATUS, CHARGE NURSE AWARE. WILL CARRY OUT.
--- NOTE | 2017-03-02 12:56 | NUR ---
BREATHING TX GIVEN AND PT WAS SXN MODERATE AMT OF THIN YELLOW SECRETIONS WATER BOTTLE CHANGED AND PT IS IN PAIN AND RN VIK NOTIFIED
[2017-03-02] MEDS: COMPOSITE DRESSING TP SCH (13:18)
[2017-03-02] MEDS: NACL 0.9% IRR 250 ML BOTTLE IR SCH (13:18)
--- NOTE | 2017-03-02 15:15 | NUR ---
PT WATCHING TV AT THIS TIME. NO S/S OF RESPIRATORY DISTRESS NOTED.
[2017-03-02] MEDS: BACLOFEN 10 MG TAB NG PRN (16:21)
--- NOTE | 2017-03-02 18:39 | NUR ---
PT REFUSED TO BE TURNED AND REPOSITIONED. RISKS AND BENEFITS EXPLAINED TO PT. PT STILL REFUSED.
--- NOTE | 2017-03-02 19:30 | NUR ---
RECEIVED REPORT FROM LUIS CHERY. AT BEDSIDE, PT IS AAOX2, FOLLOW COMMANDS, ABLE TO MAKE NEEDS KNOWN. C-COLLAR NOTED TO NECK, ON TRACH TO T PIECE AND FIO2 30, NO S/S OF SOB, BREATHING EVEN AND UNLABORED, CLEAR LUNG SOUNDS, SR ON MANAGER SCIENTIFIC WITH REGULAR HR. NG TUBE INPLACE WITH FEEDING DIABETISOURCE AT 40 ML/HR, TOLERATED WELL, 5 ML RESIDUAL NOTED. SOFT ABDOMEN WITH ACTIVE BOWEL SOUNDS, CONDOM CATH IN PLACE, DRAINING CLEAR YELLOW URINE VIA GRAVITY. SEVERE WEAKNESS TO ALL EXTREMITATIS. AFEBRILE, SKIN IS WARM AND DRY TO TOUCH, OPEN WOUND PRESENT ( SEE WOUND ASSESSMENT) . CENTRAL CATH LINE TO LEFT SUBCLAVIAN WITH TRIPLE LUMEN, GOOD BLOOD RETURN, RUNNING 0.9 NS AT 100 ML/HR. C/O PAIN TO BLE, WILL MEDICATED WITH PAIN MEDICATION. ORAL CARE PROVIDED, SUCTION PROVIDED, POSITION CHANGED FOR OFF LOAD PRESSURE, POC EXPLAINED TO PT, PT VERBALIZED UNDERSTANDING. CALL LIGHT IN REACH, HOB ELEVATED 30 DEGREES WITH LOW BED POSITION, VSS, WILL CONTINUE TO MONITOR.
--- NOTE | 2017-03-02 21:04 | NUR ---
2100 PLACED PATIENT BACK ON VENT WITH SAME SETTINGS. PT SHOWS NO SOB
--- NOTE | 2017-03-02 21:30 | NUR ---
ACCU CHECK PERFORMED WITH RESULT OF 103MG/DL, NO INSULIN GIVEN AT THIS TIME, SCHEDULED MEDICATION GIVEN, PT TOLERATED WELL.
--- NOTE | 2017-03-02 23:05 | NUR ---
PT C/O PAIN 05/14, EDUCATED AND MEDICATED.
[2017-03-03] VITALS (12 sets, daily range): BP systolic 140–174; BP diastolic 72–92
--- NOTE | 2017-03-03 | NUR ---
PT HAD A LARGE GREENISH LOOSE STOOL, KING CARE PROVIDED, POSITION CHANGED FOR OFF LOAD PRESSURE. VSS.
[2017-03-03] MEDS: LORazepam 1 MG TAB GT SCH ×5 (00:17→23:50)
[2017-03-03] MEDS: IPRATROPIUM 0.02% 0.5 MG/2.5 ML NEBU INH SCH ×4 (01:12→19:14)
[2017-03-03] MEDS: ALBUTEROL 0.083% 2.5 MG/3 ML NEBU INH SCH ×4 (01:12→19:14)
[2017-03-03] MEDS: MILD SOAP AND WATER TP SCH ×2 (01:52→12:19)
[2017-03-03] MEDS: Z-GUARD PASTE TP SCH ×2 (01:52→12:20)
--- NOTE | 2017-03-03 04:00 | NUR ---
AM CARE PROVIDED, ORAL CARE PERFORMED, CONDOM CATHETER IS LEAKING, CHANGED NEW ONE, KING CARE PROVIDED, PT TOLERATED WELL, VSS. POSITION CHANGED FOR OFF LOAD PRESSURE.
[2017-03-03] MEDS: MORPHINE SULFATE 2 MG/ML SYR IVP PRN ×4 (04:14→19:32)
--- NOTE | 2017-03-03 04:15 | NUR ---
PT C/O PAIN 05/14, EDUCATED AND MEDICATED.
[2017-03-03] MEDS: BACLOFEN 10 MG TAB NG PRN (04:50)
[2017-03-03] MEDS: GABAPENTIN 300 MG CAP GT SCH ×3 (04:50→20:59)
[2017-03-03] MEDS: PIPER/TAZO 3.375GM/D5W PREMIX 50 ML IV SCH ×3 (04:51→20:59)
[2017-03-03 04:56] LABS: BASOPHILS # (AUTO) 0.5 K/uL (0.00-0.22); BASOPHILS % (AUTO) 4.4 % (0.0-2.0); EOSINOPHILS # (AUTO) 0.8 K/uL (0-0.4); EOSINOPHILS % (AUTO) 7.1 % (0.0-4.0); HEMATOCRIT 27.5 % (36-52); HEMOGLOBIN 8.9 g/dL (12.0-18.0); LYMPHOCYTES # (AUTO) 1.4 K/uL (2.0-11.5); LYMPHOCYTES % (AUTO) 13.1 % (20.5-51.1); MEAN CORPUSCULAR HEMOGLOBIN 26 pg (27-31); MEAN CORPUSCULAR HGB CONC 32 g/dL (33-37); MEAN CORPUSCULAR VOLUME 82 fL (80-94); MONOCYTES # (AUTO) 1.2 K/uL (0.8-1.0); NEUTROPHILS # (AUTO) 6.7 K/uL (1.8-7.7); NEUTROPHILS % (AUTO) 64.4 % (42.2-75.2); PLATELET COUNT (AUTO) 147 K/uL (140-450); RED BLOOD CELL COUNT(AUTO) 3.35 MIL/uL (4.20-6.10); RED CELL DISTRIBUTION WIDTH 14.7 % (11.6-13.7); WHITE BLOOD COUNT (AUTO) 10.6 K/uL (4.8-10.8)
[2017-03-03 05:21] LABS: ANION GAP 10.6 (8-16); CARBON DIOXIDE 30.7 mmol/L (21-32); POTASSIUM 3.3 mmol/L (3.5-5.1)
[2017-03-03 05:26] LABS: MAGNESIUM 1.8 mg/dL (1.8-2.4); PHOSPHORUS 2.5 mg/dL (2.5-4.9)
[2017-03-03] MEDS: BLOOD GLUCOSE MONITORING 1 DEV DEV FS SCH ×4 (06:33→21:00)
--- NOTE | 2017-03-03 06:36 | NUR ---
ACCU CHECK PERFORMED WITH RESULT OF 98MG/DL, NO INSULIN NEEDED AT THIS TIME.
--- NOTE | 2017-03-03 06:47 | NUR ---
RECEIVED PT ON [facility] ON A/C16 VT500 PEEP5 FIO2 30 ALARMS ARE ON AND FUNCTIONAL PTS TRACH NIMA 8 IS SECURE PT WEARING CERVICAL COLLAR PT IN HF AWAKE BS DIMINISHED I\L LAVAGE AND SX MOD YELLOW BMV HOB I\L HHN WITH 2.5 MG ALBUTEROL AND 0.5 MG ATROVENT VENT PLUGGED INTO RED OUTLET NO DISTRESS
--- NOTE | 2017-03-03 07:15 | NUR ---
REPORT GIVEN TO LUIS THOMPSON AT BEDSIDE, PT IS IN STABLE CONDITION AT THIS TIME.
[2017-03-03] MEDS: NACL 0.9% 1,000 ML IV SCH ×2 (07:32→12:18)
--- NOTE | 2017-03-03 07:38 | NUR ---
RECEIVED REPORT FROM LUIS MCINTYRE. PT IS ALERT AND ORIENTED X 3. ABLE TO MAKE SIMPLE NEEDS KNOWN. SPEECH IS UNCLEAR D/T TRACH. PERRLA NOTED IN BILATERAL PUPILS. PT IS TRACH TO VENT. A/C VC, FIO2 30%, AC 16, TV 500, PEEP 5. TOLERATED WELL. SR ON MONITOR. EXTREMELY WEAK BUE AND BLE. RANGE IS LIMITED FOR BUE AND BLE. EDEMA NOTED ON BUE. ARM RAISED. SKIN NOT INTACT. LEFT GROIN BLISTER NOTED. DRESSING INTACT. LEFT BUTTOCKS WOUND NOTED. DRESSING CHANGED. CLEAN AND INTACT. CONDOM CATH IN PLACE. DRAINING CLEAR YELLOW URINE. CONTINUE TUBE FEEDING SCHEDULED. 30 CC RESIDUAL NOTED. LEFT SUBCLAVIAN TRIPLE LUMEN CENTRAL LINE NOTED. INTACT AND PATENT. SCD REMOVED D/T PT REQUEST. C/O UNCOMFORTNESS FROM THE CONSTANT SQUEEZING. WILL ATTEMPT TO REPLACE AFTER REST. SAFETY AND ASPIRATION PRECAUTION IN PLACED. WILL CONTINUE TO MONITOR
--- NOTE | 2017-03-03 08:10 | NUR ---
PT REMOVED FROM VENT PER ORDER SPO2 92 ON 30% COOL AEROSOL PT AWAKE NO DISTRESS
[2017-03-03] MEDS ORDERED: fentaNYL 0.025 MG/HR PATCH TD SCH (09:00)
[2017-03-03] MEDS: LISINOPRIL 20 MG TAB PO SCH (09:10)
[2017-03-03] MEDS: FERROUS SULFATE 300 MG/5 ML UDC GT SCH ×3 (09:10→17:16)
[2017-03-03] MEDS: PANTOPRAZOLE 40 MG INJ VIAL IVP SCH (09:11)
[2017-03-03] MEDS: ASPIRIN 81 MG TAB.CHEW GT SCH (09:11)
[2017-03-03] MEDS: LACTOBACILLUS RHAMNOSUS GG 1 EACH CAP PO SCH (09:11)
[2017-03-03] MEDS: CARBIDOPA/LEVODOPA 25/100 MG 1 TAB GT SCH ×3 (09:12→17:17)
[2017-03-03] MEDS: LORATADINE 10 MG TAB GT SCH (09:12)
--- NOTE | 2017-03-03 09:15 | NUR ---
MEDICATION ADMINISTERED THROUGH NG TUBE. PLACEMENT CHECKED. NO S/SX OF ACUTE DISTRESS NOTED. TOLERATED WELL
[2017-03-03] MEDS: PIROXICAM 10 MG CAP GT SCH ×2 (09:16→20:59)
[2017-03-03] MEDS: VANCOMYCIN 1GM/DEXT 5% PREMIX 200 ML IV SCH (09:17)
[2017-03-03] MEDS: FLUoxetine 10 MG CAP GT SCH (09:17)
[2017-03-03] MEDS: LIDOCAINE 5% 1 EA PATCH TP SCH (09:20)
[2017-03-03] MEDS: TRANSPARENT DRESSING TP SCH (09:20)
[2017-03-03 09:45] LABS: ANION GAP 10.4 (8-16); CARBON DIOXIDE 28.9 mmol/L (21-32); POTASSIUM 3.3 mmol/L (3.5-5.1)
--- NOTE | 2017-03-03 10:00 | NUR ---
PT NOTED TO HAVE MODERATE AMOUNT OF GREEN VERY LOOSE STOOL. NO ODOR NOTED. KING CARE PROVIDED. DRESSING CHANGED ON PRESSURE ULCER OF SACRUM D/T SOILAGE. AREA NOTED TO BE RED. OPEN AREA NOTED. NO APPARENT CHANGE.
[2017-03-03] MEDS: COMPOSITE DRESSING TP SCH (12:19)
[2017-03-03] MEDS: NACL 0.9% IRR 250 ML BOTTLE IR SCH (12:19)
--- NOTE | 2017-03-03 13:15 | NUR ---
DR. CONTEH AT BEDSIDE TO SEE PATIENT. WILL F/U WITH NEW ORDERS
--- NOTE | 2017-03-03 13:20 | NUR ---
REPORTED LOW POTASSIUM VALUE TO DRChandu PAZ RECEIVED
--- NOTE | 2017-03-03 13:45 | NUR ---
03/03/17 RD FOLLOW-UP ASSESSMENT COMPLETED PLEASE REFER TO NUTRITION ASSESSMENT UNDER CARE ACTIVITY FOR ESTIMATED NUTRITIONAL NEEDS. 1. CONTINUE EN - DIABETISOURCE AC AT 40 ML/HR AND ADVANCE TOLERATED TO GOAL RATE OF 65 ML/HR (TO PROVIDE 1872 KCAL, 93 G PROTEIN, 1276 ML FREE WATER - MEETS 90% ESTIMATED KCAL+PROTEIN NEEDS); IF NEEDED, 200 ML WATER FLUSH Q6H 2. RD TO FOLLOW-UP 2-3 DAYS; HIGH RISK JONATHAN LUCIA RD
[2017-03-03] MEDS ORDERED: POTASSIUM CHLORIDE 20% 40 MEQ/15 ML UDC NG SCH (14:00)
--- NOTE | 2017-03-03 14:16 | NUR ---
ST AT BEDSIDE TO DO SWALLOW EVAL
--- NOTE | 2017-03-03 14:19 | NUR ---
CM NOTE INITIAL REVIEW SENT TO [facility] FAX# [phone] JUANITA PH# [phone]
--- NOTE | 2017-03-03 15:17 | NUR ---
CHIEF RECORDIST note (bedside swallow evaluation completed) [id number]. Bedside swallow evaluation completed, please see report for details. CHIEF RECORDIST provided pt with education regarding purpose of evaluation and rationale for recommendations. Pt verbalized/indicated agreement with recommendations at this time. Recommend: 1) pureed textures 2) thin liquids 3) 100% feeding supervision/assistance 4) strict aspiration precautions (including pt must be fully awake/alert/upright for any PO intakes, alternate small/slow bites and sips, stop giving PO if pt becomes sleepy/less alert/SOB/coughing/requires suctioning) 5) no further CHIEF RECORDIST intervention here in hospital as pt reported to have pending discharge back to [facility] tomorrow. Physician to reorder CHIEF RECORDIST intervention here in hospital if pt doesn't discharge and pt's status warrants, as appropriate. 6) ECF CHIEF RECORDIST to f/u for dysphagia/diet tolerance, as appropriate, upon pt's discharge back to ECF. G-codes: [id number] [id number] TONY NOMS level 4 PVE for d/w ICU RNs and RCPs prior to and following bedside swallow evaluation completion. Safe swallow strategies sign posted above pt's HOB by [employer].
[2017-03-03] MEDS ORDERED: VANCOMYCIN PER PHARMACY MC PRN (16:00)
--- NOTE | 2017-03-03 18:00 | NUR ---
OFFERED DINNER TO PT PER ORDER. PT WAS SLEEPING. AWOKE TO VOICE. PT STATED HE DOES NOT WANT TO EAT RIGHT NOW. WHEN ASKED IF HE'S HUNGRY, HE STATED SO SO AND WENT BACK TO SLEEP. WILL CONTINUE TO MONITOR.
--- NOTE | 2017-03-03 19:15 | NUR ---
RECEIVED REPORT FROM LUIS THOMPSON. AT BEDSIDE, PT IS AAOX3, APHASIC, ABLE TO FOLLOW COMMANDS AND MAKE NEEDS KNOWN. C-COLLAR NOTED TO NECK, ON TRACH TO T PIECE AND FIO2 30, NO S/S OF SOB, BREATHING EVEN AND UNLABORED, CLEAR LUNG SOUNDS, SR ON RAIL FILLER WITH REGULAR HR. NG TUBE IN PLACE WITH FEEDING DIABETISOURCE AT 20 ML/HR, TOLERATED WELL, 30 ML RESIDUAL NOTED. SOFT ABDOMEN WITH ACTIVE BOWEL SOUNDS, CONDOM CATH IN PLACE, DRAINING CLEAR YELLOW URINE VIA GRAVITY. GENERALIZED WEAKNESS TO ALL EXTREMITATIS. AFEBRILE, SKIN IS WARM AND DRY TO TOUCH, OPEN WOUND PRESENT ( SEE WOUND ASSESSMENT) . CENTRAL CATH LINE TO LEFT SUBCLAVIAN WITH TRIPLE LUMEN, GOOD BLOOD RETURN, RUNNING 0.9 NS AT 10 ML/HR. C/O PAIN IN GENERAL, WILL MEDICATED WITH PAIN MEDICATION. ORAL CARE PROVIDED, SUCTION PROVIDED, POSITION CHANGED FOR OFF LOAD PRESSURE, POC EXPLAINED TO PT, PT VERBALIZED UNDERSTANDING. CALL LIGHT IN REACH, HOB ELEVATED 30 DEGREES WITH LOW BED POSITION, VSS, WILL CONTINUE TO MONITOR.
--- NOTE | 2017-03-03 19:21 | NUR ---
RECEIVED PT STABLE ON 30% COOL AEROSOL, HHN TX GIVEN, TOLERATED WELL, NO RESP DISTRESS OR SOB NOTED, 8 SHILEY TRACH PATENT/SECURED/MIDLINE, VENT STAND BY, PT COMMUNICATED NOT READY TO GO BACK ON VENT FOR THE NIGHT YET, BAG MASK AT BEDSIDE, WILL CONTINUE TO MONITOR.
--- NOTE | 2017-03-03 21:00 | NUR ---
ACCU CHECK PERFORMED WITH RESULT OF 98MG/DL, NO INSULIN NEEDED AT THIS TIME, SCHEDULED MEDICATION GIVEN VIA NGT, PT TOLERATED WELL.
--- NOTE | 2017-03-03 21:18 | NUR ---
PT PLACED BACK ON VENTILATOR FOR NIGHT AT DOCUMENTED SETTINGS, TOLERATING WELL, NO RESP DISTRESS OR SOB NOTED, CONT PULSE OX ON, VENT PLUGGED INTO RED OUTLET, ALARMS SET AND AUDIBLE, WILL CONTINUE TO MONITOR.
[2017-03-04] VITALS (9 sets, daily range): BP systolic 141–178; BP diastolic 74–91
--- NOTE | 2017-03-04 | NUR ---
PT IS ASLEEP IN BED, NO S/S OF DISTRESS, VSS.
[2017-03-04] MEDS: TRANSPARENT DRESSING TP SCH (00:53)
[2017-03-04] MEDS: Z-GUARD PASTE TP SCH ×2 (00:53→12:27)
[2017-03-04] MEDS: COMPOSITE DRESSING TP SCH (00:53)
[2017-03-04] MEDS: MILD SOAP AND WATER TP SCH ×2 (00:53→12:27)
[2017-03-04] MEDS: ALBUTEROL 0.083% 2.5 MG/3 ML NEBU INH SCH ×3 (01:09→12:54)
[2017-03-04] MEDS: IPRATROPIUM 0.02% 0.5 MG/2.5 ML NEBU INH SCH ×3 (01:09→12:54)
[2017-03-04] MEDS: BACLOFEN 10 MG TAB NG PRN (01:24)
[2017-03-04] MEDS: MORPHINE SULFATE 2 MG/ML SYR IVP PRN ×4 (01:24→15:13)
--- NOTE | 2017-03-04 01:30 | NUR ---
PT C/O PAIN 8/10W, EDUCATED AND MEDICATED.
--- NOTE | 2017-03-04 04:00 | NUR ---
AM CARE PROVIDED, ORAL CARE PERFORMED, HAD A YELLOWISH LOOSE BOWEL MOVEMENT, KING CARE PROVIDED, PT TOLERATED WELL, VSS. POSITION CHANGED FOR OFF LOAD PRESSURE.
[2017-03-04] MEDS: PIPER/TAZO 3.375GM/D5W PREMIX 50 ML IV SCH ×2 (04:59→12:26)
[2017-03-04] MEDS: GABAPENTIN 300 MG CAP GT SCH ×2 (04:59→12:27)
[2017-03-04 05:28] LABS: BASOPHILS # (AUTO) 0.1 K/uL (0.00-0.22); BASOPHILS % (AUTO) 1.4 % (0.0-2.0); EOSINOPHILS # (AUTO) 0.8 K/uL (0-0.4); EOSINOPHILS % (AUTO) 7.9 % (0.0-4.0); HEMATOCRIT 28.7 % (36-52); LYMPHOCYTES # (AUTO) 1.4 K/uL (2.0-11.5); LYMPHOCYTES % (AUTO) 13.2 % (20.5-51.1); MEAN CORPUSCULAR HEMOGLOBIN 26 pg (27-31); MEAN CORPUSCULAR HGB CONC 32 g/dL (33-37); MEAN CORPUSCULAR VOLUME 82 fL (80-94); MONOCYTES % (AUTO) 9.2 % (1.7-9.3); NEUTROPHILS # (AUTO) 7.4 K/uL (1.8-7.7); NEUTROPHILS % (AUTO) 68.3 % (42.2-75.2); PLATELET COUNT (AUTO) 160 K/uL (140-450); RED CELL DISTRIBUTION WIDTH 15.2 % (11.6-13.7); WHITE BLOOD COUNT (AUTO) 10.7 K/uL (4.8-10.8)
--- NOTE | 2017-03-04 05:30 | NUR ---
PT C/O GENERALIZED PAIN 07/14, EDUCATED AND MEDICATED.
[2017-03-04] MEDS: LORazepam 1 MG TAB GT SCH ×3 (05:34→17:22)
[2017-03-04 05:42] LABS: ANION GAP 12.5 (8-16); CALCIUM 8.4 mg/dL (8.5-10.1); CARBON DIOXIDE 28.2 mmol/L (21-32); POTASSIUM 3.7 mmol/L (3.5-5.1)
[2017-03-04 06:08] LABS: MAGNESIUM 1.8 mg/dL (1.8-2.4); PHOSPHORUS 2.9 mg/dL (2.5-4.9)
[2017-03-04] MEDS: BLOOD GLUCOSE MONITORING 1 DEV DEV FS SCH ×3 (06:35→17:19)
--- NOTE | 2017-03-04 06:53 | NUR ---
RECIVED PT ON VENT WITH SETTINGS CHARTED BREATH SOUNDS PRESENT BILAT CLEAR PT AWAKE ALERT SXN PT WITH MIN AMT YELLOW SECS REMOVED PT EROM VENT AND PLACED ON COOL AEROSOL PT MANUELA WELL AMBU BAG AT BEDSIDE
--- NOTE | 2017-03-04 07:12 | NUR ---
REPORT GIVEN TO LUIS THOMPSON AT BEDSIDE, PT IS IN STABLE CONDITION AT THIS TIME.
--- NOTE | 2017-03-04 07:15 | NUR ---
RECEIVED REPORT FROM LUIS MCINTYRE. PT IS RESTING IN BED. AWAKE BY NAME. A/O X3. NO C/O PAIN. PERRLA NOTED IN BILATERAL EYES. ABLE TO VOICE SIMPLE NEEDS AND ANSWER QUESTIONS. SPEECH IMPAIRED. TRACH TO VENT. TAKEN OFF VENT BY RT. PLACE ON TPIECE. BILATERAL LUNG SOUNDS CLEAR. PT TOLERATING WELL. SR ON MONITOR. BILATERAL UPPER EXTREMITY EDEMA NOTED. NONPITTING. LIMITED ROM NOTED ON BUE AND BLE. LEFT SUBCLAVIAN TRIPLE LUMEN NOTED. INTACT AND PATENT. OPEN AREA ON BOTTOM NOTED. CONTINUE WOUND TX ORDERED. BLISTER NOTED ON LEFT GROIN. INTACT. REDNESS NOTED ON RIGHT FOOT. NG TUBE IN PLACE. 40 CC RESIDUAL NOTED. TOLERATING FEED WELL. PLACEMENT CHECKED. CONDOM CATH IN PLACE. DRAINING CLEAR YELLOW URINE. NO S/SX OF ACUTE DISTRESS NOTED. WILL CONTINUE TO MONITOR.
--- NOTE | 2017-03-04 07:54 | NUR ---
PT TOLERATED BREAKFAST WELL. 30% OF PLATE CONSUMED. ABOUT 150 CC DRANK. MAINTAINED PROPER POSITIONING THROUGHOUT MEAL.
[2017-03-04] MEDS: VANCOMYCIN 1GM/DEXT 5% PREMIX 200 ML IV SCH (08:35)
[2017-03-04] MEDS: FERROUS SULFATE 300 MG/5 ML UDC GT SCH ×3 (09:19→17:00)
[2017-03-04] MEDS: PANTOPRAZOLE 40 MG INJ VIAL IVP SCH (09:19)
[2017-03-04] MEDS: ASPIRIN 81 MG TAB.CHEW GT SCH (09:19)
[2017-03-04] MEDS: LISINOPRIL 20 MG TAB PO SCH (09:20)
[2017-03-04] MEDS: LACTOBACILLUS RHAMNOSUS GG 1 EACH CAP PO SCH (09:20)
[2017-03-04] MEDS: LORATADINE 10 MG TAB GT SCH (09:20)
[2017-03-04] MEDS: CARBIDOPA/LEVODOPA 25/100 MG 1 TAB GT SCH ×3 (09:21→17:00)
[2017-03-04] MEDS: LIDOCAINE 5% 1 EA PATCH TP SCH (09:25)
[2017-03-04] MEDS: FLUoxetine 10 MG CAP GT SCH (09:25)
[2017-03-04] MEDS: PIROXICAM 10 MG CAP GT SCH (09:25)
--- NOTE | 2017-03-04 09:30 | NUR ---
MEDICATION ADMINISTERED PER ORDER THROUGH NG TUBE. TOLERATED WELL. WILL CONTINUE TO MONITOR.
[2017-03-04 09:56] LABS: ANION GAP 10.6 (8-16); CALCIUM 8.2 mg/dL (8.5-10.1); CARBON DIOXIDE 28.9 mmol/L (21-32); POTASSIUM 3.5 mmol/L (3.5-5.1)
--- NOTE | 2017-03-04 11:18 | NUR ---
CM NOTE CONCURRENT REVIEW SENT TO [facility] FAX# [phone] JUANITA PH# [phone]
--- NOTE | 2017-03-04 12:00 | NUR ---
PT REFUSED LUNCH. ATE CUP OF ICE CREAM. ALTERNATE FOOD OFFERED. PT STATED HE WASNT HUNGRY.
[2017-03-04] MEDS: NACL 0.9% IRR 250 ML BOTTLE IR SCH (12:27)
--- NOTE | 2017-03-04 13:30 | NUR ---
DR. HEATH TO SEE PT. WILL F/U WITH NEW ORDERS.
--- NOTE | 2017-03-04 14:07 | NUR ---
CM NOTE FROM [facility] GRANT AUTH# [id number] FOR [facility]. FROM [facility] PH# [phone], PATIENT IS GOING TO RM 25A. ICU NURSE JAY AWARE Addendum: 03/04/17 at 1440 by Lona Lam CM PER [facility], FOR [facility] AUTH# [id number]. [facility] AWARE
--- NOTE | 2017-03-04 14:27 | NUR ---
[facility] CONTACTED TO TRANSFER PT BACK TO THE FACILITY. REPORT GIVEN TO JAKOB. WILL BE RECEIVED UNDER CARE OF DR. BATES. ALL QUESTIONS ANSWERED. [facility] CONTACTED. SERVICE WORKER HELPER TIME AT 1630.
[2017-03-04] MEDS ORDERED: PNEUMOCOCCAL VACCINE 23 MCG/0.5 ML VIAL IMVAC SCH (15:25)
[2017-03-04] MEDS: NACL 0.9% 1,000 ML IV SCH (17:21)
--- NOTE | 2017-03-04 17:30 | NUR ---
PT DISCHARGED TO ALS UNIT. REPORT GIVEN TO DOCUMENT IMAGING MANAGER. ALL QUESTIONS ANSWERED. PT IS A/O X 3. NO S/SX OF DISTRESS NOTED. CENTRAL LINE D/C. CATHETER INTACT. TOLERATED WELL. NG TUBE D/C. TOLERATED WELL. PT REFUSED ALL MEDICATIONS BY MOUTH. V/S STABLE. 181/87, P 60, RR 19, 98% ON TRACH TO TPIECE. CONDOM CATHETER REMOVED. PT TRANSFERRED TO [facility]. LEFT WITH EMT AND DOCUMENT IMAGING MANAGER.
== END 2017-03-04 17:30 | DRG 133 ==
LOC: MED 20:25 → MIC 02-28 00:01
PROVIDERS: ADMIT Hospitalist; ATTEND Hospitalist
PROC: 30233N1 Transfusion of Nonautologous Red Blood Cells into Peripheral Vein, Percutaneous Approach (ICD-10-PCS; principal; 2017-02-28)
PROC: 5A1945Z Respiratory Ventilation, 24-96 Consecutive Hours (ICD-10-PCS; 2017-02-28)
DX: J96.21 Acute and chronic respiratory failure with hypoxia (principal); G92 Toxic encephalopathy; J15.211 Pneumonia due to Methicillin susceptible Staphylococcus aureus; J44.9 Chronic obstructive pulmonary disease, unspecified; Z93.0 Tracheostomy status; E11.9 Type 2 diabetes mellitus without complications; I10 Essential (primary) hypertension; G89.4 Chronic pain syndrome; J96.22 Acute and chronic respiratory failure with hypercapnia; T40.605A Adverse effect of unspecified narcotics, initial encounter; Z87.898 Personal history of other specified conditions
CPT/HCPCS: 36415; 36556; 36600; 71010; 80048; 80053; 80202; 81001; 82272; 82803; 83605; 83735; 83880; 84100; 85025; 86886; 86900; 86901; 86920; 87040; 87070; 87081; 87086; 87186; 87205; 90732; 92526; 94003; 94640; 94660; 96361; 96365; 96366; 96367; 97799; 99291; 99292; C1758; C9113; J1815; J1956; J2060; J2270; J2543; J3370; J3475; J7030; J7060; J7613; J7644; P9016; Q0092

== ENCOUNTER 2017-03-06 09:06 | Inpatient (IN) | payer OTHER ==
[~2017-03-06] VITALS: Ht 175.3 cm; Wt 75.3 kg
[2017-03-06] VITALS (13 sets, daily range): BP systolic 77–136; BP diastolic 46–100
[~2017-03-06 09:06] MED LIST: ASPI81CT89 PO; CARB1TER4 PO; CLON0.1T42 PO; DOCU-67 PO; FENT25TD TD; FERR75LI22 PO; FLUO10CA21 PO; GABA300C PO; HYDR-4452 PO; LACT10SO1 PO; LANS30EC68 PO; LIDO5TDM3 TP; LISI40TA4 PO; LORA-476 PO; LORA10TA19 PO; MIRABULK PO; PIRO10CA PO; TRAZ-286 PO
--- NOTE | 2017-03-06 09:06 | NUR ---
0902--RT at bedside.
--- NOTE | 2017-03-06 09:06 | NUR ---
0900--Patient was BIBA and taken to bed 04 via gurney per EMS.
--- NOTE | 2017-03-06 09:19 | NUR ---
Dr. Pabon evaluating patient at bedside.
--- NOTE | 2017-03-06 09:29 | NUR ---
57/M BIBA TO ED WITH C/O ALOC. PT IS UNRESPONSIVE. PT DOES NOT RESPOND TO PAINFUL STIMULI. PT ARRIVED WITH TRACH COLLAR. LUNGS CLEAR BILAT. BP IS LOW. PT HAD FENTANYL PATCH ON LEFT SHOULDER. NARCAN GIVEN IN FIELD. PT IS NOT ALERT OR ORIENTED. PT HAS WOUNDS ON SACRUM AND BLISTER ON LEFT UPPER THIGH. PT PLACED ON MONITOR. VSS. ERMD TO EVAL PT.
[2017-03-06] MEDS ORDERED: NACL 0.9% 1,000 ML IV ONE (09:35)
[2017-03-06 10:13] LABS: BLOOD GAS BASE EXCESS 2.9 mmol/L (-2.0-2.0); BLOOD GAS HCO3 31.2 mmol/L; BLOOD GAS PCO2 69.8 mmHg (20-50); BLOOD GAS PH 7.268 (7.35-7.45); BLOOD GAS PO2 96.6 mmHg
[2017-03-06 10:14] LABS: BLOOD GAS O2 SAT% 97.7 % (92.0-98.5)
--- NOTE | 2017-03-06 10:20 | NUR ---
ABG RESULTS ON VENT REPORTED TO DR CHAND, RESP RATE INCREASED TO [address] CHAND. WILL CONTINUE TO MONITOR
[2017-03-06 10:33] LABS: ANION GAP 10.3 (8-16); CREATININE 1.1 mg/dL (0.6-1.3); POTASSIUM 4.3 mmol/L (3.5-5.1)
--- NOTE | 2017-03-06 10:35 | NUR ---
Patient going to CT/XRAY via jadon valderrama.
[2017-03-06 10:39] LABS: ALBUMIN 2.4 g/dL (3.4-5.0); TOTAL BILIRUBIN 0.2 mg/dL (0.0-1.0); TOTAL PROTEIN, SERUM 7.6 g/dL (6.4-8.2)
[2017-03-06 10:40] LABS: APPEARANCE,URINE CLEAR (CLEAR); BILIRUBIN,URINE NEGATIVE (NEGATIVE); BLOOD, URINE NEGATIVE (NEGATIVE); COLOR,URINE YELLOW (YELLOW); LEUKOCYTE ESTERASE ,URINE NEGATIVE (NEGATIVE); NITRITE, URINE NEGATIVE (NEGATIVE); PROTEIN,URINE NEGATIVE (NEGATIVE); UGLUCOSE NEGATIVE (NEGATIVE); UROBILINOGEN,URINE 0.2 EU/dL (0.2 - 1)
[2017-03-06 10:43] LABS: LACTIC ACID 3.1 mmol/L (0.4-2.0)
--- NOTE | 2017-03-06 10:45 | NUR ---
Patient back from CT/XRAY via gurney per tech/RT.
--- NOTE | 2017-03-06 11:50 | NUR ---
Patient appears to be resting comfortably in bed. Vital Signs within normal limits. Respirations even and unlabored.
[2017-03-06 12:07] LABS: HEMOGLOBIN 10.5 g/dL (12.0-18.0); MEAN CORPUSCULAR HEMOGLOBIN 27 pg (27-31); MEAN CORPUSCULAR HGB CONC 32 g/dL (33-37); MEAN CORPUSCULAR VOLUME 84 fL (80-94); PLATELET COUNT (AUTO) 224 K/uL (140-450); RED BLOOD CELL COUNT(AUTO) 3.95 MIL/uL (4.20-6.10); RED CELL DISTRIBUTION WIDTH 15.5 % (11.6-13.7); WHITE BLOOD COUNT (AUTO) 21.7 K/uL (4.8-10.8)
[2017-03-06 12:28] LABS: BAND % (MANUAL) 13 % (0-8); EOSINOPHILS % (MANUAL) 4 % (0-4); LYMPHOCYTES % (MANUAL) 5 % (20-46); MONOCYTES % (MANUAL) 11 % (5-12); NEUTROPHILS % (MANUAL) 67 (43-65)
--- NOTE | 2017-03-06 12:33 | NUR ---
RT AT BEDSIDE. PT KEEPS PULLING VENT OFF. RT REMOVED VENT.
--- NOTE | 2017-03-06 12:35 | NUR ---
PT NOW AWAKE AND ALERT, RN SAYS PT HAS BEEN PULLING VENT CIRCUIT OFF, PT COMMUNICATED THAT HE DOESNT WANT OR NEED IT ON, PLACED ON 30% COOL AEROSOL, SPO2 95%, NO RESP DISTRESS OR SOB NOTED, LUCIO RN AWARE, WILL CONTINUE TO MONITOR.
--- NOTE | 2017-03-06 13:39 | NUR ---
Patient will be admitted to care of DR CONTEH. Admited to ICU 1. Will go to room 1. Belongings list completed. Report to VIK.
--- NOTE | 2017-03-06 13:55 | NUR ---
PT TRANSFERRED TO ICU1 WITH LUCIO SMITH WITHOUT INCIDENT.
--- NOTE | 2017-03-06 14:05 | NUR ---
ADMITTED 57 YR OLD MALE PATIENT TO ICU 1 FROM ER WITH DIAGNOSIS : HYPERCAPNIA,PNEUMONIA. PATIENT WAS [facility]CHARGED TO [facility]17. PATIENT IS AWAKE BUT SOMEWHAT LETHARGIC. MOUTHS WORD TO ANSWER THE SIMPLE QUESTIONS. PATIENT HAS HX OF CERVICAL SPINE STENOSIS WITH SPINE SURGERY 12/29/16. CERVICAL COLLAR IN PLACE. PATIENT ABLE TO MOVE RT ARM WITH SEVERE WEAKNESS. NO MOVEMENT OF THE LEG AND LT ARM. SINUS RHYTHM ON MONITOR. PATIENT HAS TRACH TO T-PIECE COOL MIST AEROSOL @ 8 L/MIN. O2 SAT 96%. NO COUGH. LUNG SOUNDS CLEAR W/DIMINISHED IN BASES. NO SIGN OF RESP DISTRESS. ABDOMEN IS SOFT,NONTENDER. PT DENIES NAUSEA. VILLEGAS CATHETER IS IN PLACE,DRAINING GOOD AMOUNT OF CLEAR YELLOW URINE. SKIN FEELS SLIGHTLY COOL/DRY. NO EDEMA. PATIENT HAS INCONTINENT DERMATITIS WITH SMALL OPEN WOUNDS AND BROKEN BLISTER ON LT THIGH. SEE THE WOUND PICTURES. PT HAS SALINE LOCK IN LT AC. KING CARE GIVEN ,TURNED TO LT SIDE AND OFF LOAD PRESSURE AREA. EXPLAINED SAFETY AND PLAN OF CARE.
--- NOTE | 2017-03-06 14:35 | NUR ---
DR. CONTEH AT BEDSIDE TO SEE PT. WILL F/U WITH NEW ORDERS
--- NOTE | 2017-03-06 14:41 | NUR ---
R/T PLACED PATIENT ON VENTILATOR PER REQUESTED. VENT SETTING ; AC/PRVC 12/MIN.PEEP 5 CM,TV 450 ML,FIO2=30%. CONT TO OBSERVE PATIENT.
[2017-03-06] MEDS ORDERED: POLYETHYLENE GLYCOL 17 GM/PKT PO PRN (14:45)
--- NOTE | 2017-03-06 14:47 | NUR ---
RT IRIS ATTEMPTED TO OBTAIN SPUTUM SAMPLE PT HAS NO SECRETIONS AT THIS TIME. AIRWAY IS PATENT AND TRACH IS SECURE.
[2017-03-06] MEDS ORDERED: ACETAMINOPHEN 325 MG TAB PO PRN (14:50)
[2017-03-06] MEDS ORDERED: VANCOMYCIN PER PHARMACY MC PRN (14:50)
[2017-03-06] MEDS ORDERED: ONDANSETRON 4 MG/2 ML VIAL IVP PRN (14:55)
[2017-03-06] MEDS: DEXT 5% / NACL 0.45% 1,000 ML IV SCH (15:06)
--- NOTE | 2017-03-06 15:06 | NUR ---
STARTED THE IV FLUID 1000 ML OF D5/0.45 NS @ 50 ML/HR ORDERED.
--- NOTE | 2017-03-06 16:00 | NUR ---
PATIENT IS AWAKE AND ALERT AT THIS TIME. MOUTHING WORD THAT HE IS HUNGRY AND HAS NOT EATEN SINCE THIS MORNING. PT ASKED FOR PUDDING. GIVEN PATIENT PUDDING PER PATIENT REQUESTED. NO DIFFICULTY SWALLOWING. REPOSITIONED,OFF LOAD PRESSURE AREA.
[2017-03-06] MEDS: VANCOMYCIN 1GM/DEXT 5% PREMIX 200 ML IV SCH (16:18)
--- NOTE | 2017-03-06 16:18 | NUR ---
IV SITE IS PATENT. GIVEN ANTIBIOTIC VANCOMYCIN PER ORDER.
[2017-03-06] MEDS ORDERED: NON-FORMULARY ITEM (Ferrous Sulfate 7.5 ML) PO SCH (17:00)
[2017-03-06] MEDS: CARBIDOPA/LEVODOPA 25/100 MG 1 TAB PO SCH (17:26)
--- NOTE | 2017-03-06 17:31 | NUR ---
ABG RESULTS GIVEN TO PHYSICIAN REQUESTS NEW VENT ORDERS. NEW SETTINGS PRVC 10, VT 400, PEEP 5 AND FIO2 30%. NURSE MADE AWARE OF CHANGE. VENT ALARMS REMAIN ON AND FUNCTIONING. TRACH IS SECURE. PT IS NOT SOB AND NOT IN RESPIRATORY DISTRESS AT THIS TIME.
[2017-03-06 17:41] LABS: BLOOD GAS O2 SAT% 96.9 % (92.0-98.5); BLOOD GAS PCO2 34.4 mmHg (20-50); BLOOD GAS PH 7.513 (7.35-7.45); BLOOD GAS PO2 78.5 mmHg
--- NOTE | 2017-03-06 18:00 | NUR ---
CONDITION IS STABLE. CONTINUE ON VENTILATOR. NO SIGN OF DISTRESS. REPOSITIONED FROM SIDE TO SIDE ONLY.
--- NOTE | 2017-03-06 19:15 | NUR ---
PT RECEIVED FROM [facility] ON NOTED VENT SETTINGS. PT AWAKE AND ALERT, HAS A #[address] SHILEY [address]URE IN [address]. BREATH SOUNDS APPEAR CLEAR/DIMINISHED BILATERALLY, PT LAVAGED AND SUCTIONED FOR SMALL AMOUNT THICK CREAMY/PINK SECRETIONS. SPUTUM SAMPLE OBTAINED AND GIVEN TO RN FOR LAB. NO ADVERSE EFFECTS NOTED. VENT ALARMS ON AND AUDIBLE. VENT PLUGGED INTO RED ELECTRICAL OUTLET. AMBU BAG AT [facility].
--- NOTE | 2017-03-06 19:30 | NUR ---
RECEIVED REPORT FROM BLADIMIR RN AT BEDSIDE, PT IS AAOX4, APHASIC, ABLE TO FOLLOW COMMANDS AND MAKE NEEDS KNOWN. VSS. CHRONIC PAIN 9/10W, PAIN MEDICATION GIVEN ORDERED, C-COLLAR IN PLACE, TRACH TO VENT WITH SETTING FIO2 30, RR 10, TV 400, PEEP 5. NO S/S OF SOB/DISTRESS NOTED, CLEAR LUNG SOUNDS, DENIES CHEST PAIN, ON MISSION COORDINATOR WITH SR, LEFT ARM SWOLLEN SOFT ABDOMEN WITH ACTIVE BOWEL SOUNDS, CURRENTLY ON PUREE DIET, VILLEGAS CATHETER IN PLACE WITH CLEAR YELLOW URINE DRAINING WELL VIA GRAVITY. IV SITE TO LEFT AC 22GA, PATENT, RUNNING WITH D5 1/2NS AT 50ML/HR. GENERALIZED WEAKNESS TO ALL EXTREMITIES, REQUIRES TOTAL CARE WITH ADL'S. SKIN IS WARM AND DRY TO TOUCH, NON-INTACT (SEE WOUND ASSESSMENT). EXPLAINED POC TO PATIENT, PATIENT KNOCKED HEAD UNDERSTANDING, VAP ORAL CARE PROVIDED, POSITION CHANGED FOR OFF LOAD PRESSURE, SAFETY MEASURES IN PLACE, HOB ELEVATED 30 DEGREES, CALL LIGHT WITHIN REACH, WILL CONTINUE TO MONITOR.
--- NOTE | 2017-03-06 19:30 | NUR ---
PATIENT WAS FED WITH PUREED DIET AND ATE 50%. NO DIFFICULTY SWALLOWING AT THIS TIME. REPORT GIVEN TO NURSE MIGUELINA SMITH FOR CONTINUITY OF CARE.
[2017-03-06] MEDS: DOCUSATE SODIUM 100 MG GELCAP PO SCH (20:28)
[2017-03-06] MEDS: LACTULOSE 20 GM/30 ML UDC PO SCH (20:28)
[2017-03-06] MEDS: PIROXICAM 10 MG CAP PO SCH (20:28)
[2017-03-06] MEDS: traZODone 50 MG TAB PO SCH (20:28)
[2017-03-06] MEDS: GABAPENTIN 300 MG CAP PO SCH (20:28)
[2017-03-06] MEDS: PIPER/TAZO 3.375GM/D5W PREMIX 50 ML IV SCH (20:29)
--- NOTE | 2017-03-06 20:45 | NUR ---
SCHEDULED MEDICATION GIVEN, PT TOLERATED WELL.
--- NOTE | 2017-03-06 21:00 | NUR ---
VENT CHECKED. PT AWAKE, BREATH SOUNDS APPEAR CLEAR/DIMINISHED, NO SUCTIONING DONE AT THIS TIME. NO DISTRESS/SOB/WHEEZING NOTED.
--- NOTE | 2017-03-06 22:00 | NUR ---
VSS. NO CHANGE OF CONDITION AT THIS TIME. POSITION CHANGED FOR OFF LOAD PRESSURE.
--- NOTE | 2017-03-06 23:06 | NUR ---
VENT CHECKED. PT ASLEEP, SUCTIONED FOR SMALL AMT THICK CREAMY SECRETIONS. NO ADVERSE EFFECTS NOTED.
[2017-03-07] VITALS (21 sets, daily range): BP systolic 102–174; BP diastolic 59–96
--- NOTE | 2017-03-07 | NUR ---
PT IS ASLEEP AT THIS TIME, EASY TO BE AROUSED, VSS. NO S/S OF SOB/DISTRESS, REFUSED ORAL CARE, POSITION CHANGED FOR OFF LOAD PRESSURE.
--- NOTE | 2017-03-07 01:13 | NUR ---
VENT CHECKED. PT ASLEEP, BREATH SOUNDS APPEAR CLEAR/DIMINISHED. NO SUCTIONING NEEDED. NO DISTRESS/SOB NOTED.
[2017-03-07] MEDS: Z-GUARD PASTE TP SCH ×2 (01:26→13:35)
--- NOTE | 2017-03-07 02:00 | NUR ---
PT IS ASLEEP IN BED, VSS, NO CHANGE OF CONDITION AT THIS TIME, POSITION CHANGED FOR OFF LOAD PRESSURE.
--- NOTE | 2017-03-07 03:38 | NUR ---
VENT CHECKED. PT ASLEEP, HME CHANGED. NO ADVERSE EFFECTS NOTED.
--- NOTE | 2017-03-07 04:00 | NUR ---
NO CHANGE OF CONDITION AT THIS TIME, VSS, AM CARE PROVIDED, ORAL CARE PERFORMED, POSITION CHANGED FOR OFF LOAD PRESSURE.
[2017-03-07] MEDS: PIPER/TAZO 3.375GM/D5W PREMIX 50 ML IV SCH ×3 (04:53→20:50)
[2017-03-07] MEDS: HYDROcodone/APAP 10/325 MG 1 TAB TAB PO PRN ×3 (04:54→16:36)
[2017-03-07] MEDS: GABAPENTIN 300 MG CAP PO SCH ×3 (04:54→20:49)
--- NOTE | 2017-03-07 05:14 | NUR ---
VENT CHECKED. PT AWAKE, NO DISTRESS/SOB NOTED AT THIS TIME.
--- NOTE | 2017-03-07 06:00 | NUR ---
NO CHANGED OF CONDITION AT THIS TIME, VSS. POSITION CHANGED FOR OFF LOAD PRESSURE.
--- NOTE | 2017-03-07 07:20 | NUR ---
RECEIVED REPORT FROMMIGUELINA SMITH. PT SLEEPING AWAKE BY NAME CALLED TRACH TO VENT AC 10VT 400 FIO2 30 % PEEP OF 5 O2 SAT 96%. IV FLUITHAS # 22 ON LEFT AC INFUSING D5 1/2 NS AT 50ML/HRTHE SITE IS DRY AND INTACT. SKIN DRY AND WARM TO TOUCH ABDOMEN FLAT AND FIRM B/S ACTIVE , VILLEGAS CATH DRAIN LIGHT LEONA URINE.
--- NOTE | 2017-03-07 07:20 | NUR ---
REPORT GIVEN TO LUIS THOMPSON AT BEDSIDE, PT IS IN STABLE CONDITION AT THIS TIME.
--- NOTE | 2017-03-07 07:36 | NUR ---
RECEIVED PT STABLE ON VENT SUPPORT AT DOCUMENTED SETTINGS, SXN'D SCANT AMOUNT OF CLEAR THICK SECRETIONS, NO RESP DISTRESS OR SOB NOTED, SHILEY 8 TRACH PATENT/SECURE/MIDLINE, ALARMS SET AUDIBLE, VENT PLUGGED INTO RED OUTLET, BAG MASK AT BEDSIDE, WILL CONTINUE TO MONITOR.
[2017-03-07 07:42] LABS: BASOPHILS # (AUTO) 0.1 K/uL (0.00-0.22); BASOPHILS % (AUTO) 0.8 % (0.0-2.0); EOSINOPHILS # (AUTO) 0.5 K/uL (0-0.4); EOSINOPHILS % (AUTO) 3.6 % (0.0-4.0); HEMATOCRIT 26.6 % (36-52); HEMOGLOBIN 8.5 g/dL (12.0-18.0); LYMPHOCYTES # (AUTO) 1.7 K/uL (2.0-11.5); LYMPHOCYTES % (AUTO) 12.6 % (20.5-51.1); MEAN CORPUSCULAR HEMOGLOBIN 26 pg (27-31); MEAN CORPUSCULAR HGB CONC 32 g/dL (33-37); MEAN CORPUSCULAR VOLUME 82 fL (80-94); MONOCYTES # (AUTO) 1.6 K/uL (0.8-1.0); MONOCYTES % (AUTO) 12.1 % (1.7-9.3); NEUTROPHILS # (AUTO) 9.5 K/uL (1.8-7.7); NEUTROPHILS % (AUTO) 70.9 % (42.2-75.2); PLATELET COUNT (AUTO) 234 K/uL (140-450); RED BLOOD CELL COUNT(AUTO) 3.24 MIL/uL (4.20-6.10); RED CELL DISTRIBUTION WIDTH 15.4 % (11.6-13.7); WHITE BLOOD COUNT (AUTO) 13.4 K/uL (4.8-10.8)
--- NOTE | 2017-03-07 08:00 | NUR ---
REPOSITION. ORAL CARE WITH VAP KIT, SKIN CARE AND BACK CARE GIVEN,
[2017-03-07 08:03] LABS: ALBUMIN 2.2 g/dL (3.4-5.0); ANION GAP 13.4 (8-16); CALCIUM 8.9 mg/dL (8.5-10.1); CREATININE 1.2 mg/dL (0.6-1.3); POTASSIUM 3.4 mmol/L (3.5-5.1); TOTAL BILIRUBIN 0.3 mg/dL (0.0-1.0); TOTAL PROTEIN, SERUM 6.7 g/dL (6.4-8.2)
[2017-03-07] MEDS ORDERED: KCL 20 MEQ/WATER INJ PREMIX 200 ML IV SCH (08:30)
--- NOTE | 2017-03-07 08:30 | NUR ---
SEEN BY NEW ORDER RECEIVED,
--- NOTE | 2017-03-07 08:49 | NUR ---
PT TAKEN OFF VENT AND PLACED ON 30% CA PER DR GOMEZ ORDER, ABG TO BE OBTAINED AFTER 1 HOUR.
[2017-03-07] MEDS: LORATADINE 10 MG TAB PO SCH (09:00)
[2017-03-07] MEDS ORDERED: NON-FORMULARY ITEM (Lisinopril 1 TAB) PO SCH (09:00)
[2017-03-07] MEDS: LISINOPRIL 20 MG TAB PO SCH (09:00)
[2017-03-07] MEDS: ASPIRIN 81 MG TAB.CHEW PO SCH (09:10)
[2017-03-07] MEDS: LANSOPRAZOLE 30 MG CAPDR PO SCH (09:10)
[2017-03-07] MEDS: CARBIDOPA/LEVODOPA 25/100 MG 1 TAB PO SCH ×3 (09:11→16:36)
[2017-03-07] MEDS: LACTULOSE 20 GM/30 ML UDC PO SCH ×2 (09:11→20:49)
[2017-03-07] MEDS: FERROUS SULFATE 300 MG/5 ML UDC PO SCH (09:11)
[2017-03-07] MEDS: DOCUSATE SODIUM 100 MG GELCAP PO SCH ×2 (09:11→20:49)
[2017-03-07] MEDS: PIROXICAM 10 MG CAP PO SCH ×2 (09:14→20:50)
[2017-03-07] MEDS: FLUoxetine 10 MG CAP PO SCH (09:14)
[2017-03-07] MEDS: ENOXAPARIN 30 MG/0.3 ML SYR SUBQ SCH (09:17)
--- NOTE | 2017-03-07 09:20 | NUR ---
PATIENT HAS BEEN SCREENED AND CATEGORIZED HIGH NUTRITION RISK. PATIENT WILL BE SEEN WITHIN 1-2 DAYS OF ADMISSION. 03/07/17 - 03/08/17 EMELI MONTGOMERY MBA, RD
[2017-03-07] MEDS ORDERED: HYDRAGUARD CREAM TP PRN (10:10)
[2017-03-07] MEDS ORDERED: MILD SOAP AND WATER TP PRN (10:10)
[2017-03-07 10:15] LABS: BLOOD GAS BASE EXCESS 1.9 mmol/L (-2.0-2.0); BLOOD GAS HCO3 27.9 mmol/L; BLOOD GAS O2 SAT% 97.9 % (92.0-98.5); BLOOD GAS PCO2 50.5 mmHg (20-50); BLOOD GAS PO2 113.5 mmHg
--- NOTE | 2017-03-07 10:50 | NUR ---
03/07/17 RD INITIAL ASSESSMENT COMPLETED. PLEASE REFER TO NUTRITION ASSESSMENT UNDER CARE ACTIVITY FOR ESTIMATED NUTRITIONAL NEEDS. RD RECOMMENDATIONS: 1- RECOMMEND CONTINUE PUREE DIET (NURSE STATES OK INTAKE BUT PT IS RELATIVELY LUZ ELENA ADMIT / INSUFFICIENT DATA IN CHART FOR PO INTAKE & TOLERANCE) 2- RE-ASSESS WEIGHT CHANGES, PO INTAKE, & PO TOLERANCE ON RD F/U. MODIFY OR SUPPLEMENT DIET ACCORDINGLY. 3- F/U 2-3 DAYS; HIGH RISK. EMELI MONTGOMERY MBA, RD
--- NOTE | 2017-03-07 12:34 | NUR ---
PT PLACED BACK ONTO VENT AT DOCUMENTED SETTINGS, PT CLAIMED HE WAS FEELING TIRED, REQUESTED TO BE PUT BACK ON, LUCA SMITH NOTIFIED, WILL CONTINUE TO MONITOR.
[2017-03-07] MEDS ORDERED: HYDRAGUARD CREAM TP SCH (13:00)
[2017-03-07] MEDS: DEXT 5% / NACL 0.45% 1,000 ML IV SCH (13:25)
--- NOTE | 2017-03-07 13:30 | NUR ---
PT, COMPLAIN OF BEING TIRED , RT NOTIFIED TO CONNECT PT TO VENTILATOR,
[2017-03-07] MEDS: MILD SOAP AND WATER TP SCH (13:33)
[2017-03-07] MEDS: VANCOMYCIN 1GM/DEXT 5% PREMIX 200 ML IV SCH (15:53)
--- NOTE | 2017-03-07 16:30 | NUR ---
BLOOD GLUCOSE 122 , NO INSULIN NEEDED.
--- NOTE | 2017-03-07 16:37 | NUR ---
C/O PAIN ON LEFT LEG 8/10 MEDICATION GIVEN ORDERED.
--- NOTE | 2017-03-07 18:50 | NUR ---
RECEIVE PT ON THE SAME VENT SETTINGS, PT AWKE, NO DISTRESS NOTED, BS ARE BILAT CLEAR
--- NOTE | 2017-03-07 19:10 | NUR ---
RESTING QUIETLY. REPORT GIVED TO MIGUELINA SMITH.
--- NOTE | 2017-03-07 19:15 | NUR ---
RECEIVED REPORT FROM JAY RN AT BEDSIDE, PT IS AAOX4, APHASIC, ABLE TO FOLLOW COMMANDS AND MAKE NEEDS KNOWN. VSS. CHRONIC PAIN 8/10W, PAIN MEDICATION GIVEN ORDERED, C-COLLAR IN PLACE, TRACH TO VENT WITH SETTING FIO2 30, RR 10, TV 400, PEEP 5. NO S/S OF SOB/DISTRESS NOTED, CLEAR LUNG SOUNDS, DENIES CHEST PAIN, ON AMERICAN SIGN LANGUAGE TEACHER WITH SR, LEFT ARM SWOLLEN SOFT ABDOMEN WITH ACTIVE BOWEL SOUNDS, CURRENTLY ON PUREE DIET, VILLEGAS CATHETER IN PLACE WITH CLEAR YELLOW URINE DRAINING WELL VIA GRAVITY. IV SITE TO LEFT AC 20GA, PATENT, RUNNING WITH D5 1/2NS AT 50ML/HR. GENERALIZED WEAKNESS TO ALL EXTREMITIES, REQUIRES TOTAL CARE WITH ADL'S. SKIN IS WARM AND DRY TO TOUCH, NON-INTACT (SEE WOUND ASSESSMENT). EXPLAINED POC TO PATIENT, PATIENT KNOCKED HEAD UNDERSTANDING, VAP ORAL CARE PROVIDED, POSITION CHANGED FOR OFF LOAD PRESSURE, SAFETY MEASURES IN PLACE, HOB ELEVATED 30 DEGREES, CALL LIGHT WITHIN REACH, WILL CONTINUE TO MONITOR.
[2017-03-07] MEDS: traZODone 50 MG TAB PO SCH (20:50)
--- NOTE | 2017-03-07 21:00 | NUR ---
SCHEDULED MEDICATION GIVEN BY MOUTH, PT TOLERATED WELL, PT DIDN'T EAT DINNER EARLY, NOW ATE 50 % OF DINNER.
--- NOTE | 2017-03-07 21:10 | NUR ---
CK VENT, PT IS EATING AT THIS TIME, NO DISTRESS NOTED
--- NOTE | 2017-03-07 22:00 | NUR ---
VSS. NO CHANGE OF CONDITION AT THIS TIME, POSITION CHANGED FOR OFF LOAD PRESSURE.
[2017-03-08] VITALS (24 sets, daily range): BP systolic 118–177; BP diastolic 63–109
--- NOTE | 2017-03-08 | NUR ---
NO CHANGE OF CONDITION AT THIS TIME, VSS. SUCTION PROVIDED, REFUSED ORAL CARE, POSITION CHANGED FOR OFF LOAD PRESSURE.
[2017-03-08] MEDS: Z-GUARD PASTE TP SCH ×2 (01:22→12:05)
[2017-03-08] MEDS: MILD SOAP AND WATER TP SCH ×2 (01:22→12:05)
--- NOTE | 2017-03-08 02:00 | NUR ---
PT IS ASLEEP IN BED, NO S/S OF DISTRESS, VSS. POSITION CHANGED FOR OFF LOAD PRESSURE.
[2017-03-08] MEDS: HYDROcodone/APAP 10/325 MG 1 TAB TAB PO PRN ×3 (02:51→19:00)
--- NOTE | 2017-03-08 04:00 | NUR ---
PT IS AWAKE, WATCHING TV, VSS. NO CHANGE OF CONDITION AT THIS TIME, AM CARE PROVIDED, POSITION CHANGED FOR OFF LOAD PRESSURE.
[2017-03-08] MEDS: GABAPENTIN 300 MG CAP PO SCH ×3 (05:18→20:54)
[2017-03-08] MEDS: PIPER/TAZO 3.375GM/D5W PREMIX 50 ML IV SCH ×3 (05:18→20:54)
[2017-03-08 05:21] LABS: HEMATOCRIT 29.5 % (36-52); HEMOGLOBIN 9.4 g/dL (12.0-18.0); MEAN CORPUSCULAR HEMOGLOBIN 26 pg (27-31); MEAN CORPUSCULAR HGB CONC 32 g/dL (33-37); MEAN CORPUSCULAR VOLUME 81 fL (80-94); PLATELET COUNT (AUTO) 239 K/uL (140-450); RED BLOOD CELL COUNT(AUTO) 3.62 MIL/uL (4.20-6.10); RED CELL DISTRIBUTION WIDTH 15.8 % (11.6-13.7); WHITE BLOOD COUNT (AUTO) 10.9 K/uL (4.8-10.8)
--- NOTE | 2017-03-08 06:00 | NUR ---
NO CHANGE OF CONDITION AT THIS TIME, VSS. POSITION CHANGED FOR OFF LOAD PRESSURE.
[2017-03-08 06:21] LABS: CARBON DIOXIDE 28.2 mmol/L (21-32); CREATININE 1.2 mg/dL (0.6-1.3); POTASSIUM 4.2 mmol/L (3.5-5.1)
[2017-03-08 06:33] LABS: BAND % (MANUAL) 8 % (0-8); LYMPHOCYTES % (MANUAL) 16 % (20-46); MONOCYTES % (MANUAL) 10 % (5-12); NEUTROPHILS % (MANUAL) 60 (43-65)
[2017-03-08 06:34] LABS: EOSINOPHILS % (MANUAL) 6 % (0-4)
--- NOTE | 2017-03-08 07:21 | NUR ---
RECEIVED TRACH PT ON VENT EQUIPPED WITH SHILEY 8 TRACH. VENT SETTINGS PRVC 10, VT 400, PEEP 5, INSP. TIME 0.80 AND FIO2 30%. PT SUCTIONED OBTAINED SMALL AMOUNT OF PALE YELLOW SECRETIONS, AIRWAY IS PATENT, TRACH SECURE. TRACH GAUZE AND DRESSING ARE NOT SOILED AT THIS TIME. VENT ALARMS ARE ON AND FUNCTIONING. VENT IS PLUGGED INTO RED OUTLET. WILL CONTINUE TO MONITOR.
--- NOTE | 2017-03-08 07:30 | NUR ---
REPORT GIVEN TO LUIS AMBRIZ AND LUIS KAISER FOR CONTINUE OF CARE.
--- NOTE | 2017-03-08 07:45 | NUR ---
RECEIVED REPORT FROM LUIS MCINTYRE. PT IS A/O X4. VERBALLY RESPONSIVE. SPEECH IS IMPAIRED, DIFFICULTY COMPREHENDING NOTED. C/O PAIN IN BILATERAL LEGS. WILL ADMINISTER MEDICATION ORDERED. PT IS TRACH TO VENT. FIO2 30%, AC 10, TV 400, PEEP 5. SR ON MONITOR. WOUND NOTED TO LEFT TIGHT. DRESSING DRY AND INTACT. WOUND NOTED TO SACRUM. OPEN TO AIR. REDNESS NOTED ON RIGHT SIDE OF TOE. SEVERE WEAKNESS NOTED IN BUE AND BLE. BUE EDEMA NOTED. RIGHT ARM NONPITTING. LEFT ARM PITTING +1. LEFT AC 20 GAUGE IV NOTED. INTACT AND PATENT. ABDOMEN FLAT NONDISTENDED. VILLEGAS CATHETER IN PLACE. DRAINING TO GRAVITY DRAINAGE BAG. SAFETY CHECKS IN PLACE. BED AT LOWEST SETTINGS, SIDE RAILS UP, CALL LIGHT WITHIN REACH. WILL CONTINUE TO MONITOR.
--- NOTE | 2017-03-08 07:53 | NUR ---
DR. GOMEZ IN TO SEE PT. WILL FOLLOW UP ON ORDERS.
--- NOTE | 2017-03-08 08:15 | NUR ---
PT TOLERATE BREAKFAST WELL. CONSUME 50% AND 125 ML. WILL CONTINUE TO MONITOR.
[2017-03-08] MEDS: LANSOPRAZOLE 30 MG CAPDR PO SCH (09:26)
[2017-03-08] MEDS: DEXT 5% / NACL 0.45% 1,000 ML IV SCH ×2 (09:26→10:57)
[2017-03-08] MEDS: LORATADINE 10 MG TAB PO SCH (09:27)
[2017-03-08] MEDS: DOCUSATE SODIUM 100 MG GELCAP PO SCH ×2 (09:27→20:54)
[2017-03-08] MEDS: CARBIDOPA/LEVODOPA 25/100 MG 1 TAB PO SCH ×3 (09:27→16:00)
[2017-03-08] MEDS: LISINOPRIL 20 MG TAB PO SCH (09:28)
[2017-03-08] MEDS: ASPIRIN 81 MG TAB.CHEW PO SCH (09:28)
[2017-03-08] MEDS: ENOXAPARIN 30 MG/0.3 ML SYR SUBQ SCH (09:28)
[2017-03-08] MEDS: LACTULOSE 20 GM/30 ML UDC PO SCH ×2 (09:29→20:55)
[2017-03-08] MEDS: FLUoxetine 10 MG CAP PO SCH (09:29)
[2017-03-08] MEDS: PIROXICAM 10 MG CAP PO SCH ×2 (09:29→20:54)
[2017-03-08] MEDS: FERROUS SULFATE 300 MG/5 ML UDC PO SCH (09:30)
--- NOTE | 2017-03-08 09:39 | NUR ---
PT IS IN BED WATCHING TV RECEIVING MEDS WITH NURSE BEDSIDE. PT IS NOT SOB AND NOT IN RESPIRATORY DISTRESS AT THIS TIME. WILL CONTINUE TO MONITOR.
--- NOTE | 2017-03-08 09:45 | NUR ---
PT C/O 8/10 PAIN. BILATERAL LEGS. SHARP CONSTANT. ADMINISTERED PAIN MEDICATION ORDERED. BP 128/65 P 65. ADMINISTER BP MEDICATION ORDERED. PT TOLERATE MEDICATION WELL. WILL CONTINUE TO MONITOR.
--- NOTE | 2017-03-08 10:41 | NUR ---
DR. GOMEZ NOTIFIED OF PT'S C/O LEG SPASM. NEW ORDERS RECEIVED
--- NOTE | 2017-03-08 11:28 | NUR ---
VENT CHECK COMPLETED. PT STATES HE DOES NOT NEED TO BE SUCTIONED AT THIS TIME. VENT ALARMS REMAIN ON AND FUNCTIONING. WILL CONTINUE TO MONITOR.
[2017-03-08] MEDS: BACLOFEN 10 MG TAB PO PRN (12:05)
--- NOTE | 2017-03-08 13:23 | NUR ---
PT SLEEPING AT THIS TIME, NO DISTRESS NOTED. WILL CONTINUE TO MONITOR.
[2017-03-08] MEDS: VANCOMYCIN 1GM/DEXT 5% PREMIX 200 ML IV SCH (15:58)
[2017-03-08] MEDS ORDERED: VANCOMYCIN 1GM/DEXT 5% PREMIX 200 ML IV SCH (16:00)
--- NOTE | 2017-03-08 16:12 | NUR ---
RECEIVED VANCO TROUGH LEVEL, ELEVATED: 19.0. NOTIFIED PHARMACISTZULEIMA. INFORMED OK TO CONTINUE VANCO ADMINISTRATION SCHEDULED. Addendum: 03/08/17 at 1620 by Mine Byers RN CHARTED PHARMACIST ZULEIMA IN ERROR. PHARMACIST IS TUNG.
--- NOTE | 2017-03-08 17:36 | NUR ---
PT REMAINS ON DOCUMENTED SETTINGS NO CHANGES MADE TO VENT. VENT ALARMS REMAIN ON AND FUNCTIONING. NO SUCTIONING INDICATED AT THIS TIME. PT IS NOT SOB AND NOT IN RESPIRATORY DISTRESS AT THIS TIME.
--- NOTE | 2017-03-08 18:00 | NUR ---
PT HAD A MODERATE DIARRHEA. ODOR NOTED. WILL NOTIFY MD. KING CARE RENDERED. PT RETURN TO COMFORTABLE POSITION
--- NOTE | 2017-03-08 18:30 | NUR ---
PAGED DR. MUELLER REGARDING POSSIBLE C. DIFF DUE TO PT'S DIARRHEA AND ODOR OF FECES. AWAITING CALLBACK AT THIS TIME.
--- NOTE | 2017-03-08 18:45 | NUR ---
DR MUELLER CALLED BACK. ORDERS RECEIVED.
--- NOTE | 2017-03-08 19:25 | NUR ---
RECEIVED REPORT FROM LUIS AMBRIZ AT BEDSIDE, PT IS AAOX4, APHASIC, ABLE TO FOLLOW COMMANDS AND MAKE NEEDS KNOWN. VSS. CHRONIC PAIN 5/10 AT THIS TIME, C-COLLAR IN PLACE, TRACH TO VENT WITH SETTING FIO2 30, RR 10, TV 400, PEEP 5. NO S/S OF SOB/DISTRESS NOTED, CLEAR LUNG SOUNDS, DENIES CHEST PAIN, ON A P MECHANIC WITH SR, LEFT ARM SWOLLEN NOTED, SOFT ABDOMEN WITH ACTIVE BOWEL SOUNDS, CURRENTLY ON PUREE DIET, VILLEGAS CATHETER IN PLACE WITH CLEAR YELLOW URINE DRAINING WELL VIA GRAVITY. IV SITE TO LEFT AC 20GA, PATENT, RUNNING WITH D5 1/2NS AT 50ML/HR. GENERALIZED WEAKNESS TO ALL EXTREMITIES, REQUIRES TOTAL CARE WITH ADL'S. SKIN IS WARM AND DRY TO TOUCH, NON-INTACT (SEE WOUND ASSESSMENT). EXPLAINED POC TO PATIENT, PATIENT KNOCKED HEAD UNDERSTANDING, VAP ORAL CARE PROVIDED, POSITION CHANGED FOR OFF LOAD PRESSURE, SAFETY MEASURES IN PLACE, HOB ELEVATED 30 DEGREES, CALL LIGHT WITHIN REACH, WILL CONTINUE TO MONITOR.
--- NOTE | 2017-03-08 19:25 | NUR ---
ENDORSED CARE TO LUIS MCINTYRE. PT IN STABLE CONDITION.
[2017-03-08] MEDS: traZODone 50 MG TAB PO SCH (20:54)
--- NOTE | 2017-03-08 21:00 | NUR ---
SCHEDULED MEDICATION GIVEN BY MOUTH, PT TOLERATED WELL. OFFERED THE DINNER TO PT, PT ATE 75 % OF DINNER AT THIS TIME.
--- NOTE | 2017-03-08 22:00 | NUR ---
NO CHANGE OF CONDITION AT THIS TIME, VSS. POSITION CHANGED FOR OFF LOAD PRESSURE.
[2017-03-09] VITALS (17 sets, daily range): BP systolic 120–152; BP diastolic 63–82
--- NOTE | 2017-03-09 | NUR ---
VSS, NO CHANGE OF CONDITION AT THIS TIME, POSITION CHANGED FOR OFF LOAD PRESSURE.
[2017-03-09] MEDS: MILD SOAP AND WATER TP SCH ×2 (00:46→13:32)
[2017-03-09] MEDS: BACLOFEN 10 MG TAB PO PRN ×2 (00:46→11:13)
[2017-03-09] MEDS: HYDROcodone/APAP 10/325 MG 1 TAB TAB PO PRN ×3 (00:46→13:31)
[2017-03-09] MEDS: Z-GUARD PASTE TP SCH (00:47)
--- NOTE | 2017-03-09 02:00 | NUR ---
NO S/S OF DISTRESS, VSS, PT IS WATCHING TV, REFUSED POSITION CHANGE, RISK AND BENEFIT EXPLAINED, PT STILL REFUSED.
--- NOTE | 2017-03-09 04:00 | NUR ---
AM CARE PROVIDED, POSITION CHANGED FOR OFF LOAD PRESSURE, VSS.
[2017-03-09 04:59] LABS: BASOPHILS # (AUTO) 0.2 K/uL (0.00-0.22); BASOPHILS % (AUTO) 1.9 % (0.0-2.0); EOSINOPHILS # (AUTO) 0.8 K/uL (0-0.4); EOSINOPHILS % (AUTO) 8.6 % (0.0-4.0); HEMATOCRIT 27.4 % (36-52); HEMOGLOBIN 8.7 g/dL (12.0-18.0); LYMPHOCYTES # (AUTO) 1.6 K/uL (2.0-11.5); LYMPHOCYTES % (AUTO) 16.8 % (20.5-51.1); MEAN CORPUSCULAR HEMOGLOBIN 26 pg (27-31); MEAN CORPUSCULAR HGB CONC 32 g/dL (33-37); MEAN CORPUSCULAR VOLUME 82 fL (80-94); MONOCYTES # (AUTO) 1.2 K/uL (0.8-1.0); MONOCYTES % (AUTO) 13.2 % (1.7-9.3); NEUTROPHILS # (AUTO) 5.4 K/uL (1.8-7.7); NEUTROPHILS % (AUTO) 59.5 % (42.2-75.2); PLATELET COUNT (AUTO) 269 K/uL (140-450); RED BLOOD CELL COUNT(AUTO) 3.36 MIL/uL (4.20-6.10); WHITE BLOOD COUNT (AUTO) 9.2 K/uL (4.8-10.8)
[2017-03-09 05:15] LABS: ANION GAP 10.8 (8-16); CALCIUM 8.6 mg/dL (8.5-10.1); CARBON DIOXIDE 27.5 mmol/L (21-32); CREATININE 1.5 mg/dL (0.6-1.3); POTASSIUM 4.3 mmol/L (3.5-5.1)
[2017-03-09] MEDS: PIPER/TAZO 3.375GM/D5W PREMIX 50 ML IV SCH ×2 (05:21→12:46)
[2017-03-09] MEDS: GABAPENTIN 300 MG CAP PO SCH ×2 (05:21→13:31)
--- NOTE | 2017-03-09 06:00 | NUR ---
VSS, REFUSED CHANGE OF POSITION, RISK AND BENEFIT EXPLAINED, PT STILL REFUSED.
--- NOTE | 2017-03-09 07:06 | NUR ---
RECEIVED TRACH PT EQUIPPED WITH SHILEY 8 TRACH ON VENT. SETTINGS PRVC 10, VT 400, PEEP 5, INSP. TIME 0.80 AND FIO2 30%. PT SUCTIONED OBTAINED SMALL AMOUNT OF THIN CLEAR SECRETIONS, AIRWAY IS PATENT AND TRACH IS SECURE. PT IS AWAKE AND ALERT IN BED WATCHING TV, NO SIGNS OF RESPIRATORY DISTRESS AT THIS TIME. VENT IS PLUGGED INTO RED OUTLET WITH ALARMS ON AND FUNCTIONING. WILL CONTINUE TO MONITOR.
--- NOTE | 2017-03-09 07:30 | NUR ---
RECEIVED REPORT FROM LUIS MCINTYRE AT BEDSIDE, PT IS AAOX4. ABLE TO FOLLOW COMMANDS . VSS. BEDSIDE MONITOR SHOWS SR. C-COLLAR IN PLACE, TRACH TO VENT WITH SETTING FIO2 30%, RR 10, TV 400, PEEP 5. NO S/S OF SOB/DISTRESS NOTED, CLEAR LUNG SOUNDS, LEFT ARM SWOLLEN NOTED, SOFT ABDOMEN WITH ACTIVE BOWEL SOUNDS, PT ON PUREE DIET, VILLEGAS CATHETER IN PLACE WITH CLEAR YELLOW URINE DRAINING WELL VIA GRAVITY. IV SITE TO LEFT AC 20GA, PATENT, RUNNING WITH D5 1/2NS AT 50ML/HR. GENERALIZED WEAKNESS TO ALL EXTREMITIES, . SKIN IS WARM AND DRY TO TOUCH, NON-INTACT (SEE WOUND ASSESSMENT). POC DISCUSSED WITH PT, PT VERBALIZED UNDERSTANDING, VAP ORAL CARE PROVIDED, POSITION CHANGED FOR OFF LOAD PRESSURE, SAFETY MEASURES IN PLACE, HOB ELEVATED 30 DEGREES, CALL LIGHT WITHIN REACH, WILL CONTINUE TO MONITOR.
--- NOTE | 2017-03-09 07:30 | NUR ---
REPORT GIVEN TO LUIS CHERY AT BEDSIDE, PT IS IN STABLE CONDITION AT THIS TIME.
[2017-03-09] MEDS: LACTULOSE 20 GM/30 ML UDC PO SCH (08:17)
[2017-03-09] MEDS: FERROUS SULFATE 300 MG/5 ML UDC PO SCH (08:17)
[2017-03-09] MEDS: PIROXICAM 10 MG CAP PO SCH (08:18)
[2017-03-09] MEDS: DOCUSATE SODIUM 100 MG GELCAP PO SCH (08:18)
[2017-03-09] MEDS: ASPIRIN 81 MG TAB.CHEW PO SCH (08:19)
[2017-03-09] MEDS: LORATADINE 10 MG TAB PO SCH (08:19)
[2017-03-09] MEDS: LISINOPRIL 20 MG TAB PO SCH (08:19)
[2017-03-09] MEDS: CARBIDOPA/LEVODOPA 25/100 MG 1 TAB PO SCH ×2 (08:20→13:31)
[2017-03-09] MEDS: LANSOPRAZOLE 30 MG CAPDR PO SCH (08:20)
[2017-03-09] MEDS: FLUoxetine 10 MG CAP PO SCH (08:20)
[2017-03-09] MEDS: ENOXAPARIN 30 MG/0.3 ML SYR SUBQ SCH (08:24)
[2017-03-09] MEDS ORDERED: fentaNYL 0.025 MG/HR PATCH TD SCH (09:00)
--- NOTE | 2017-03-09 09:00 | NUR ---
DUE MEDS GIVEN, TOLERATED WELL.
[2017-03-09] MEDS ORDERED: ANTIFUNGAL CLEAR OINTMENT TP PRN (09:20)
--- NOTE | 2017-03-09 09:20 | NUR ---
WOUND CARE EVALUATION NOTES: REASON FOR EVALUATION: SACRAL DECUBITUS COMPLETE SKIN ASSESSMENT DONE ON THIS 57 Y/O MALE PATIENT FROM [facility] TO [facility], WITH INITIAL DIAGNOSIS OF HYPERCAPNIA AND BILATERAL PNEUMONIA. PAST MEDICAL AND SURGICAL HISTORY INCLUDE CHRONIC RESPIRATORY FAILURE, CHRONIC PAIN SYNDROME, HYPERTENSION, CERVICAL SPINE STENOSIS AND CERVICAL SPINE SURGERY. ALL ABOVE INFORMATION WAS OBTAINED FROM THE ADMISSION H&P. LABS ARE WBC 9.2, H/H 8.7/27.4, GLUCOSE 116 AND ALBUMIN 2.2. CURRENT MEDS INCLUDE VANCOMYCIN, FENTANYL, BACLOFEN, ENOXAPARIN, ASPIRIN, ZOSYN, GABAPENTIN AND NORCO. PATIENT IS AWAKE, ORIENTED TO PERSON AND PLACE. WITH TRACH TO VENT. NECK BRACE NOTED. LEFT AC PERIPHERAL IV PATENT AND INTACT TO LEONA COLORED URINE IN MODERATE AMOUNT. SKIN WARM TO TOUCH WNL, LONG AND THICKENED TOENAILS, +1 EDEMA, WITH HAIR GROWTH AND +2 BILATERAL PEDAL PULSES. RIGHT MEDIAL METATARSAL HEAD WITH PINK SCARRING NOTED. NEEDS ASSISTANCE IN TURNING. INITIAL PLAN OF CARE AND PRESSURE PREVENTIVE MEASURES DISCUSSED, ABLE TO VERBALIZE UNDERSTANDING. INTEGUMENTARY: LEFT UPPER THIGH (CLOSE TO GROIN) - INTACT BLISTER SACRALCOCCCYX TO BILATERAL BUTTOCKS -ST II PW WITH FUNGAL LIKE RASH RECOMMENDATIONS: -CLEANSE SACRALCOCCYX TO BILATERAL BUTTOCKS WITH MILD SOAP AND WATER, PAT DRY, APPLY Z GUARD TO WOUND BED, ANTIFUNGAL CLEAR OINT TO PERIWOUND BIDWC AND PRN WITH SOILING. LEAVE OPEN TO AIR -CLEANSE LEFT UPPER THIGH (CLOSE TO GROIN) WITH NS AND GAUZE, PAT DRY, COVER WITH VERSATEL Q5D AND PRN WITH SOILING/DISPLACEMENT. CHECK DRESSING PLACEMENT DAILY. -TURN AND REPOSITION PATIENT Q 2 H TO LEFT AND RIGHT SIDE ONLY TO OFFLOAD SACRALCOCCYX TO BILATERAL BUTTOCKS --ASSESS AND MONITOR SKIN CONDITION DURING POSITION CHANGE, PLEASE PAY PARTICULAR ATTENTION TO SACRALCOCCYX, ELBOWS AND HEELS -OFFLOAD BILATERAL HEELS BY PLACING PILLOWS UNDER CALVES AT ALL TIMES, UNLESS OTHERWISE CONTRAINDICATED -KEEP SKIN CLEAN AND DRY AT ALL TIMES. -PRESSURE REDISTRIBUTION SURFACE THERAPY. RECOMMENDATIONS DISCUSSED WITH PRIMARY RN. WILL FOLLOW UP PATIENT Q 7 DAYS AND PRN. PLEASE CONTACT [facility] FOR ANY CONCERNS, QUESTIONS AND CHANGES IN SKIN CONDITION.
--- NOTE | 2017-03-09 10:10 | NUR ---
Social Service Note: I faxed inquiry to [facility] .
--- NOTE | 2017-03-09 10:23 | NUR ---
PT PLACED ON COOL AEROSOL 30% AFTER 3-4 MINUTES PT STATES THAT HE IS HAVING TROUBLE BREATHING AND BECOMING SOB. PT PLACED BACK ON VENTILATOR WITH ORIGINAL SETTINGS AND PT STATES RELIEF WHILE ON VENTILATOR. WILL CONTINUE TO MONITOR AND NOTIFY NURSE SEGOVIA.
--- NOTE | 2017-03-09 12:16 | NUR ---
CM NOTE INITIAL REVIEW SENT TO [facility] FAX# [phone] ATTN: JUANITA # [phone]
--- NOTE | 2017-03-09 12:30 | NUR ---
FEED PT, PT HAS A GOOD APPETITE.
[2017-03-09] MEDS ORDERED: ANTIFUNGAL CLEAR OINTMENT TP ONE (13:00)
[2017-03-09] MEDS ORDERED: Z-GUARD PASTE TP SCH (13:00)
[2017-03-09] MEDS ORDERED: LISI-420 PO (13:20)
[2017-03-09] MEDS ORDERED: PIPE1SOL IV (13:20)
[2017-03-09] MEDS ORDERED: FER300L PO (13:20)
[2017-03-09] MEDS ORDERED: BACL10TA4 PO (13:20)
[2017-03-09] MEDS ORDERED: VANC750F IV (13:20)
--- NOTE | 2017-03-09 14:18 | NUR ---
CM NOTE PER [facility] RUBEN GRANT PH# [phone] AUTHORIZATION FOR [facility] TRANSPORTATION [id number]. ICU NURSE VIK MULTANI
--- NOTE | 2017-03-09 14:34 | NUR ---
CALLED JULIAN DOYLE [phone] FOR TRANSFERRING TO [facility] [place] PER VENANCIO THEY MAY COME AT 1700.
--- NOTE | 2017-03-09 15:10 | NUR ---
REPORT GIVEN TO BELKIS BENJAMIN RN [phone]
--- NOTE | 2017-03-09 15:19 | NUR ---
VENT CHECK COMPLETED. PT SLEEPING AT THIS TIME AND IS EXPERIENCING NO SOB AND NO RESPIRATORY DISTRESS AT THIS TIME. WILL CONTINUE TO MONITOR.
--- NOTE | 2017-03-09 15:20 | NUR ---
Social Service Note: Ronnie Patton from [facility] patient may return to room 25A today. Addendum: 03/09/17 at 1537 by Jennifer Delgado SS Ronnie Fernández from [facility] , accepting physician is , disability case manager Lona silva
--- NOTE | 2017-03-09 15:40 | NUR ---
[facility] PERSONNEL PRESENT AT UNIT.
--- NOTE | 2017-03-09 15:45 | NUR ---
REPORT GIVEN TO CHRYSTAL CHIN RN.
[2017-03-09] MEDS ORDERED: VANCOMYCIN 750 MG in DEXTROSE 5% 250 ML IV SCH (16:00)
--- NOTE | 2017-03-09 16:00 | NUR ---
PT URINE OUT PUT IS 1300ML DURING MY SHIFT. NO BM YET.
--- NOTE | 2017-03-09 16:10 | NUR ---
[facility] PERSONNEL LEFT UNIT, PT AWAKE, ALERT, AND ORIENTED. IV FLUSHED. ALL PERSONAL BELONGINGS WITH PT. PT UNABLE TO SIGN DISCHARGE INSTRUCTIONS DUE TO WEAKNESS, BUT PT VERBALIZED UNDERSTANDING. HR 60, BP 120/66, SAT 98%, RR 10 AT THIS TIME. NO S/S OF RESPIRATORY DISTRESS NOTED.
== END 2017-03-09 16:10 | DRG 720 ==
LOC: MED 09:07 → MIC 14:08
PROVIDERS: ADMIT Internal Medicine Pulmonary Disease; ATTEND Internal Medicine Pulmonary Disease
PROC: 5A1945Z Respiratory Ventilation, 24-96 Consecutive Hours (ICD-10-PCS; principal; 2017-03-06)
DX: A41.9 Sepsis, unspecified organism (principal); J96.21 Acute and chronic respiratory failure with hypoxia; Z99.11 Dependence on respirator [ventilator] status; J15.211 Pneumonia due to Methicillin susceptible Staphylococcus aureus; L89.152 Pressure ulcer of sacral region, stage 2; J96.22 Acute and chronic respiratory failure with hypercapnia; Z93.0 Tracheostomy status; F11.20 Opioid dependence, uncomplicated; E11.9 Type 2 diabetes mellitus without complications; T40.605A Adverse effect of unspecified narcotics, initial encounter; Y95 Nosocomial condition; G89.4 Chronic pain syndrome; I10 Essential (primary) hypertension; R53.81 Other malaise; Y92.89 Other specified places as the place of occurrence of the external cause; Z87.891 Personal history of nicotine dependence
CPT/HCPCS: 36415; 36600; 51702; 70450; 71010; 80048; 80053; 80202; 81003; 82803; 83605; 85025; 87040; 87070; 87081; 87205; 93005; 94002; 94003; 96360; 96361; 99285; J1650; J2543; J3370; J3480; J7030; J7060; Q0092

== ENCOUNTER 2020-03-15 01:10 | Inpatient (IN) | payer OTHER, SELFPAY ==
[2020-03-14 05:30] VITALS: BP 130/70
[~2020-03-15] VITALS: Ht 175.3 cm; Wt 77.1 kg
[~2020-03-15 01:10] MED LIST changes: +ACET-2619 PO; +ALBU3SOL83 IH; +AMLO10TA PO; +ASCO500T45 PO; +ASPI-1822 PO; -ASPI81CT89 PO; +BACL10TA4 PO; +BISA-213 RC; -CLON0.1T42 PO; +DOCU-299 PO; -DOCU-67 PO; -FENT25TD TD; +FERR325E14 PO; -FERR75LI22 PO; -FLUO10CA21 PO; +GABA-636 PO; -GABA300C PO; +GABA600T11 PO; -HYDR-4452 PO; -LIDO5TDM3 TP; +LIDO5TDM59 TP; -LISI40TA4 PO; -LORA-476 PO; +MAGN400S60 PO; +METF500T PO; -MIRABULK PO; +MULT-1868 PO; +NA P133E RC; +OXYC15TA2 PO; +POLY17PD46 PO; +SENN-72 PO; +SIMV10TA93 PO; +SYN.05 PO; +TIZA2CAP PO; -TRAZ-286 PO; +VAN1I; +Vancomycin Per Pharmacy MC; +ZOS3.375I IV; +[UNRECOGNIZED DRUG - CODE] PO
--- NOTE | 2020-03-15 01:10 | NUR ---
PT BIB AMBULANCE AND MOVED FROM EMS [facility] TO BED 10 WITH ASSISTANCE
[2020-03-15 01:12] VITALS: BP 137/74
--- NOTE | 2020-03-15 01:15 | NUR ---
PT RESTING IN BED IN POSITION OF COMFORT, BED LOW AND LOCKED, 2 SIDERAILS UP, VSS, WILL CONTINUE TO MONITOR. PT HAS T-PIECE TRACH TO VENT.
[2020-03-15 01:38] VITALS: BP 155/68
--- NOTE | 2020-03-15 02:00 | NUR ---
PT RETING IN BED IN POSITION OF COMFORT, BED LOW AND LOCKED, 2 SIDERAILS UP, VSS, WILL CONTINUE TO MONITOR. PT HAS T-PIECE TRACH TO VENT.
--- NOTE | 2020-03-15 02:36 | NUR ---
60 Y/O MALE BIBA FROM [facility] C/O INCREASED WBC, POSSIBLE SEPSIS PNA X TODAY. TRACH TO VENT. 100% SPO2. NKA. PMH: HTN, DM.
[2020-03-15 02:46] LABS: HEMATOCRIT 35.9 % (36-52); HEMOGLOBIN 11.8 g/dL (12.0-18.0); MEAN CORPUSCULAR HEMOGLOBIN 28 pg (27-31); MEAN CORPUSCULAR HGB CONC 33 g/dL (33-37); MEAN CORPUSCULAR VOLUME 86.4 fL (80-94); PLATELET COUNT (AUTO) 214 K/uL (140-450); RED BLOOD CELL COUNT(AUTO) 4.15 MIL/uL (4.20-6.10); RED CELL DISTRIBUTION WIDTH 14.6 % (11.6-13.7)
[2020-03-15 02:57] LABS: ANION GAP 10.1 (8-16); CARBON DIOXIDE 35.9 mmol/L (21-32); CREATININE 1.2 mg/dL (0.6-1.3)
[2020-03-15 03:00] LABS: WHITE BLOOD COUNT (AUTO) 20.3 K/uL (4.8-10.8)
--- NOTE | 2020-03-15 03:00 | NUR ---
PT RETING IN BED IN POSITION OF COMFORT, BED LOW AND LOCKED, 2 SIDERAILS UP, VSS, WILL CONTINUE TO MONITOR. PT HAS T-PIECE TRACH TO VENT.
[2020-03-15 03:01] LABS: LYMPHOCYTES % (MANUAL) 4 % (20-46); MONOCYTES % (MANUAL) 1 % (5-12)
[2020-03-15] MEDS ORDERED: LEVOFLOXACIN 500 MG/D5W PREMIX 100 ML IV ONE (03:10)
--- NOTE | 2020-03-15 03:10 | NUR ---
CRITICAL LAB REPORTING: K 6.0 AND SPECIMEN IS NONHEMOLYZE. DELLA BUCHANAN.
--- NOTE | 2020-03-15 03:23 | NUR ---
LEVAQUIN ABX INITIATED. TOLERATED WELL. NADR
[2020-03-15] MEDS ORDERED: SYN.05 PO (03:34)
[2020-03-15] MEDS ORDERED: VANCOMYCIN 1,000 MG in DEXTROSE 5% 250 ML IV ONE (03:40)
[2020-03-15] MEDS ORDERED: DEXTROSE 50% 50 ML SYR IVP ONE (03:40)
[2020-03-15] MEDS ORDERED: PIPERACILLIN/TAZOBACTAM 3.375 GM in DEXTROSE 5% 50 ML IV ONE (03:40)
[2020-03-15] MEDS ORDERED: INSULIN REGULAR, HUMAN 100 UNIT/ML VIAL IV ONE (03:40)
[2020-03-15] MEDS ORDERED: CALCIUM CHLORIDE 10% 100 MG/ML SYR IVP ONE (03:40)
[2020-03-15] MEDS ORDERED: VANCOMYCIN 1,000 MG VIAL ONE (03:51)
[2020-03-15] MEDS ORDERED: PIPERACILLIN/TAZOBACTAM 3.375 GM VIAL IV ONE (03:55)
--- NOTE | 2020-03-15 04:00 | NUR ---
PT RETING IN BED IN POSITION OF COMFORT, BED LOW AND LOCKED, 2 SIDERAILS UP, VSS, WILL CONTINUE TO MONITOR. PT HAS T-PIECE TRACH TO VENT.
[2020-03-15] MEDS ORDERED: VANCOMYCIN PER PHARMACY MC PRN (04:20)
--- NOTE | 2020-03-15 05:00 | NUR ---
PT RETING IN BED IN POSITION OF COMFORT, BED LOW AND LOCKED, 2 SIDERAILS UP, VSS, WILL CONTINUE TO MONITOR. PT HAS T-PIECE TRACH TO VENT.
--- NOTE | 2020-03-15 05:20 | NUR ---
Patient will be admitted to care of . Admited to TELE. Will go to room 108B. Belongings list completed. Report to LUIS PHILIPPE.
--- NOTE | 2020-03-15 05:30 | NUR ---
RECEIVED PT / ER / GURNEY - BED BOUND , ON TRACH TO VENT - DNR , NON VERBAL , BUT CAN UNDERSTAND SIMPLE COMMANDS BY NODDING HEAD , RESPONDING BY SOUNDS - W/ SPONTANEUOSLY EYES OPENING , IV SITES INTACT AND PATENT , SKIN - W/ REDNESS AND SMALL OPENING ON BOTH BUTT AND THERE ARE OLD SCABNS STARTING TO FALL OUT ON NAILS EDGES BOTH FEET . NPO - WILL RE CHECK THE HGT . MRSA SPECIMEN SENT TO LAB . ON TELE MONITOR , HOOK ON O2 SAT MONITORING . SAFETY MEASURES IN PLACE - BED ALARM ON . PLAN OF CARE DISCUSSED WITH POOR UNDERSTANDING DUE TO COMMUNICATION BARRIER , FOR CLOSELY WATCH . .
--- NOTE | 2020-03-15 06:00 | NUR ---
MADE ROUNDS , O2 SAT 97 - NO S/SX OF ACUTE DISTRESS NOTED AT THIS . WILL CONT. TO MONITOR.
--- NOTE | 2020-03-15 07:10 | NUR ---
RECEIVED BEDSIDE REPORT FROM NIGHT NURSE. PATIENT IS TRACH TO VENT. AWAKE, APHASIC, EYES OPEN. RESPIRATIONS EVEN AND UNLABORED. SKIN WARM AND DRY TOUCH. PLANS OF CARE DISCUSSED. BED IN LOW POSITION. SAFETY MEASURES IN PLACE. IV INTACT AND PATENT TO RIGHT AND LEFT WRIST. NO DISTRESS NOTED.
--- NOTE | 2020-03-15 07:18 | NUR ---
ENDORSED TO AM NURSE FOR CONT. OF CARE -O2 SAT 97%
[2020-03-15 07:30] VITALS: BP 134/63
--- NOTE | 2020-03-15 07:53 | NUR ---
SATURATION 98% ON FIO2 OF 40% TITRATED FIO2 TO 34% VERO/RN NOTIFIED
--- NOTE | 2020-03-15 07:53 | NUR ---
RECEIVED ON A [employer] R860 VENTILATOR PLUGGED INTO RED OUTLET TOLERATING WELL TO A Poll EverywhereLEY DCT #8 AIRWAY SECURED WITH A TRACH TIE CUFF PRESSURE CHECKED NOTED AMBU BAG AT BEDSIDE VITALS MONITOR AT BEDSIDE ON AND FUNCTIONING WELL LOC AWAKE AND ALERT STABLE NO EVIDENCE OF DISTRESS NOTED GOOD CHEST RISE DEEP TRACHEAL SUCTION FOR COPIOUS THICK PALE YELLOW SECRETINS AIRWAY PATENT
--- NOTE | 2020-03-15 09:10 | NUR ---
PATIENT HAS BEEN SCREENED AND CATEGORIZED HIGH NUTRITION RISK. PATIENT WILL BE SEEN WITHIN 1-2 DAYS OF ADMISSION. 03/15/20-03/16/[address]
--- NOTE | 2020-03-15 09:40 | NUR ---
NO EVIDENCE OF RESPIRATORY DISTRESS NOTED GOOD CHEST RISE DEEP TRACHEAL SUCTION FOR MODERATE THICK YELLOW WITH SCATTERED BLOOD STREAKS AIRWAY PATENT
[2020-03-15] MEDS: ENOXAPARIN 40 MG/0.4 ML SYR SUBQ SCH (09:42)
--- NOTE | 2020-03-15 09:45 | NUR ---
AM MEDICATIONS GIVEN. PATIENT ON TRACH TO VENT, AWAKE, ALERT, APHASIC. PER RT FIO2 CHANGED TO 30%. PATIENT IS WITH O2 SAT 99%. NO RESPIRATORY DISTRESS NOTED. BED IN LOW POSITION. PATIENT SUCTIONED NEEDED. SAFETY MEASURES IN PLACE.
--- NOTE | 2020-03-15 10:55 | NUR ---
GASKET SUPERVISOR NOTE: Basic Screen: Yes High Risk DC Screen [place] Station: PHYLLIS Lawler Relationship: FRIEND Pre-Admission Living Arrangements: SNF Other: [facility] Prior ADL Total/Dependent Current Home Health Name/Tel: N/A Current / Name/Tel: OXYGEN, VENT, BED BOUND Healthcare Decision Maker: Patient Advance Directive No Physician Orders for Life Sustaining Treatment Form No Patient/Family Have Educational Needs No Discipline: Case Mgt/Social Svcs Tentative Discharge Plan/Destination: SNF/ECF Other: [facility] Will require assistance post discharge: No Referred to Product Examiner: No Tentative Discharge Plan Summary: PATIENT IS A 60-YEAR-OLD MALE ADMITTED FOR PNEUMONIA. PATIENT HAS PMHX OF ASTHMA, CARDIAC DISORDERS, DIABETES, AND HYPERTENSION. PATIENT WAS ADMITTED FROM [facility] [place]. ALEXANDRA CONTACTED RUBENS FROM [facility] [facility] [phone]. PER RUBENS, PATIENT IS HALFWAY AND ON A BED HOLD. RUBENS STATED THAT PATIENT IS SELF-RESPONSIBLE WITH MEDICAL DECISIONS AND THAT PATIENT IS ALERT/ORIENTED AT BASELINE. RUBENS STATED THAT PATIENT REQUIRES TOTAL ASSISTANCE WITH ADLS. TENTATIVE DISCHARGE PLAN IS FOR PATIENT TO RETURN TO [facility] [place]. NO FURTHER NEEDS IDENTIFIED. Signature: JUANITA SIMMONS Date: Mar 15, 2020 Time: 10:53
--- NOTE | 2020-03-15 11:45 | NUR ---
STABLE NO INDICATIONS OF RESPIRATORY DISTRESS NOTED GOOD CHEST RISE AIRWAY PATENT
--- NOTE | 2020-03-15 12:40 | NUR ---
PATIENT REMAINS IN STABLE CONDITION. DR. BRISENO PAGED FOR CLARIFICATION IN REGARDS TO PATIENT'S DIET ORDER AND BLOOD GLUCOSE MONITORING.
[2020-03-15] MEDS: BLOOD GLUCOSE MONITORING 1 DEV DEV FS SCH ×3 (12:45→20:57)
--- NOTE | 2020-03-15 12:45 | NUR ---
RECEIVED CALL BACK FROM DR. BRISENO. ORDERS RECEIVED TO START BLOOD GLUCOSE MONITORING Q6H, HUMALOG SLIDING SCALE PROTOCOL AND KEEP PATIENT NPO UNTIL SEEN BY ST, ORDER ST EVALUATION.
[2020-03-15 12:50] VITALS: BP 145/76
--- NOTE | 2020-03-15 12:50 | NUR ---
BG 190, HUMALOG NOT GIVEN PATIENT IS NPO.
[2020-03-15] MEDS: PIPERACILLIN/TAZOBACTAM 3.375 GM in DEXTROSE 5% 50 ML IV SCH ×2 (13:35→20:01)
--- NOTE | 2020-03-15 13:55 | NUR ---
03/15/20 RD INITIAL ASSESSMENT COMPLETED PLEASE REFER TO NUTRITION ASSESSMENT UNDER CARE ACTIVITY FOR ESTIMATED NUTRITIONAL NEEDS. 1. PENDING SWALLOW EVALUATION RECOMMENDATIONS 2. IF PT FAILS SWALLOW EVALUATION CONSIDER ENTERAL NUTRITION WITH GLUCERNA 1.2 @ 65 ML/HR X 24 HR. START AT 20 ML/HR AND INCREASE BY 20 Q6H -THIS WILL PROVIDE 1872 CALORIES AND [address] TO FOLLOW-UP 2-3 DAYS, HIGH RISK SHARYN CANSECO RD
--- NOTE | 2020-03-15 15:25 | NUR ---
COVID19 SWAB COLLECTED. PATIENT REMAINS STABLE. O2 SAT 97%. NO S/S OF DISTRESS NOTED.
[2020-03-15 16:00] VITALS: BP 136/60
--- NOTE | 2020-03-15 16:02 | NUR ---
RESTING WELL NO SOB NOTED GOOD CHEST RISE
[2020-03-15] MEDS ORDERED: ACETAMINOPHEN 650 MG SUPP RC PRN (16:25)
[2020-03-15] MEDS ORDERED: SODIUM PHOSPHATE 118 ML ENEM RC PRN (16:25)
[2020-03-15] MEDS ORDERED: HYDROcodone/APAP 5/325 MG 1 TAB TAB PO PRN (16:25)
[2020-03-15] MEDS ORDERED: POTASSIUM CHLORIDE 10 MEQ TABER PO PRN (16:25)
[2020-03-15] MEDS ORDERED: guaiFENesin DM 200/20 MG-10 ML 10 ML UDC PO PRN (16:25)
[2020-03-15] MEDS ORDERED: DOCUSATE SODIUM 250 MG GELCAP PO PRN (16:25)
[2020-03-15] MEDS ORDERED: MAGNESIUM OXIDE 400 MG TAB PO PRN (16:25)
[2020-03-15] MEDS ORDERED: MAG SULF 2000 MG/WATER PREMIX 50 ML IV PRN (16:25)
[2020-03-15] MEDS ORDERED: diphenhydrAMINE 50 MG/ML VIAL IVP PRN (16:25)
[2020-03-15] MEDS ORDERED: BISACODYL 10 MG SUPP RC PRN (16:25)
[2020-03-15] MEDS ORDERED: ACETAMINOPHEN 325 MG TAB PO PRN (16:25)
[2020-03-15] MEDS ORDERED: ZOLPIDEM 5 MG TAB PO PRN (16:25)
[2020-03-15] MEDS ORDERED: ONDANSETRON 4 MG/2 ML VIAL IVP PRN (16:25)
[2020-03-15 17:03] LABS: ANION GAP 10.9 (8-16); CARBON DIOXIDE 34.4 mmol/L (21-32); CREATININE 1.1 mg/dL (0.6-1.3)
[2020-03-15 17:06] LABS: POTASSIUM 6.3 mmol/L (3.5-5.1)
[2020-03-15] MEDS: VANCOMYCIN 1,000 MG in DEXTROSE 5% 250 ML IV SCH (17:26)
[2020-03-15] MEDS: DEXT 5% / NACL 0.45% 1,000 ML IV SCH (17:27)
[2020-03-15] MEDS: INSULIN LISPRO SLIDING SCALE 100 UNITS/ML VIAL SUBQ PRN ×2 (17:42→22:06)
--- NOTE | 2020-03-15 17:52 | NUR ---
STABLE GOOD CHEST RISE DEEP TRACHEAL SUCTION FOR LARGE THICK YELLOW WITH BLOOD TINGE SECRETIONS AIRWAY PATENT
--- NOTE | 2020-03-15 18:24 | NUR ---
PATIENT IS STABLE. ANSWERS TO COMMANDS. EVEN CHEST RISE AND NO SOB. LAYING SEMI FOWLERS RESTING, NO SIGNS OF DISTRESS.
--- NOTE | 2020-03-15 19:22 | NUR ---
* ST NOTE * Pt seen at bedside. Pt alert and cooperative, reporting no c/o pain at this time. Bedside dysphagia and oral mechanism exams completed. See evaluation report for further details. Pt tolerating cuff deflation for duration of evaluation, but presenting with SOB and requesting for suction immediately after evaluation. Pt tolerating 1/3 sips of thin liquid apple juice via a straw, presenting with coughing immediately after PO intake and residual throat clearing thereafter. Pt also protruding lingua after PO intake of thin liquids, appearing to be groping and also presenting with SOB. Pt refusing use of PMV at this time as well, w/clinician endorsing to Nsg Delviniza that pt may not be able to tolerate PMV at this time. Clinician reinflating pt's cuff at this time. Pt and nsg education completed re: benefits of attempting to sit up at 70-90 degree angle in bed and to attempt tolerating trach cuff deflation and PMV in place to assess pt's readiness for weaning and PO intake, w/pt and nsg Glaiza verbalizing understanding and agreement w/clinician's recommendations. Pt and nsg Glaiza education completed re: keeping pt NPO until his respiratory status improves, and until pt can consistently tolerate trach cuff deflation & PMV in place for ~1-2 hours daily across 2-3 days, w/pt indifferent but Glaiza agreeable. Nsg Delvinizshameka also encouraged to provide frequent oral care 2/[address] to ff 2x/week for 2 weeks to address swallow function and PMV tolerance. Recommend: - NPO - RD Consult for artificial means of nutrition/hydration 2/2 to pt presenting with poor prognosis of tolerating PO intake at this time - Frequent oral hygiene, at least in AM & PM - RT: Trach Cuff deflation and PMV as tolerated ST to ff 2x/week for 2 weeks to assess tolerance for cuff deflation & PO intake. Time In/Out 18:15 - 19:00
--- NOTE | 2020-03-15 19:28 | NUR ---
PATIENT IN STABLE CONDITION. WILL ENDORSE TO NIGHT NURSE FOR CONTINUITY OF CARE.
--- NOTE | 2020-03-15 19:30 | NUR ---
RECEIVED PT FROM VERO SMITH PT IS AAOC3 HOB 35 DEGREE TRACH TO VENT TV 400 FIO2 35% PEEP 5 RR 18 NOT SOB NOTED PT ON TELEMETRY SR REPOSITIONED LINEN CHANGED INITIAL ASSESSMENT DONE
[2020-03-15 20:00] VITALS: BP 150/67
--- NOTE | 2020-03-15 21:30 | NUR ---
BLOOD SUGAR TEST 244 COVERAGE WITH 4 UNITS SUB Q HUMALOG
--- NOTE | 2020-03-15 23:25 | NUR ---
PT HAS BEEN MONITORING CLOSE REPOSITIONED Q2H AND SUCTIONED NEDESSATY TRACH TO VENT REMAIN SAME SETTING
[2020-03-16] VITALS: BP 155/77
--- NOTE | 2020-03-16 01:45 | NUR ---
WOUND CARE EVALUATION NOTE: REASON FOR EVALUATION: LOW TIN SCALE AND BUTTOCKS WOUND SKIN ASSESSMENT DONE WITH PRIMARY RN ON THIS 60 Y/O MALE PT. HE IS AWAKE. SKIN IS WARM AND DRY, BLE NO HAIR GROWTH, NO EDEMA. DORSAL PEDAL PULSES PRESENT AND NORMAL. CAPILLARY REFILLED < 2 SEC. X 10 TOES. INCONTINENT OF BLADDER X1 DURING ASSESSMENT. PLAN OF CARE DISCUSSED WITH PRIMARY RN. INTEGUMENTARY: -TRACH SITE KING STOMA SKIN DRY AND CLEAN. SKIN INTACT. -LOWER ABDOMEN DISTENDED, SOFT WITH PALPATION -INCONTINENT ASSOCIATE DERMATITIS (IAD) TO: B/L GROINS EXTENDED TO PERINEUM, SKIN REDNESS DENUDED SKIN OFF TO LEFT BUTTOCK WITH 1X1CM SUPERFICIAL DEPTH, MOIST NO ODOR, KING WOUND SKIN RED, IAD RECOMMENDATIONS: - CLEANSE BUTTOCKS WITH MILD SOAP AND WATER, PAT DRY APPLY Z GUARD COVER WITH DRY DRESSING QD AND PRN IF SOILING -APPLY FORM DRESSING TO SACROCOCCYX QD AND PRN IF SOILING PREVENTION -APPLY HEEL PROTECTORS TO BOTH HEELS AT ALL TIMES -OFFLOAD BILATERAL HEELS BY PLACING PILLOWS UNDER CALVES UNLESS OTHERWISE CONTRAINDICATED -PRESSURE REDISTRIBUTION SURFACE THERAPY -TURN AND REPOSITION Q2H, OFFLOAD SACRALCOCCYX AND BUTTOCKS BY TURNING RIGHT AND LEFT -CONTINUE TO FOLLOW RD RECOMMENDATIONS ALL ABOVE RECOMMENDATIONS DISCUSSED WITH PRIMARY RN. PLEASE CONTACT WOUND CARE NURSE FOR ANY QUESTION AND CHANGE OF WOUND CONDITION.
[2020-03-16 04:00] VITALS: BP 104/51
--- NOTE | 2020-03-16 04:00 | NUR ---
SPONGE BATH GIVEN LINEN CHANGED ON TELE SR , HOB 35 DEGREE TRACH TO VENt remain same setting
[2020-03-16] MEDS: PIPERACILLIN/TAZOBACTAM 3.375 GM in DEXTROSE 5% 50 ML IV SCH ×3 (04:45→21:00)
[2020-03-16] MEDS: VANCOMYCIN 1,000 MG in DEXTROSE 5% 250 ML IV SCH ×2 (04:46→17:07)
--- NOTE | 2020-03-16 05:00 | NUR ---
RESPIRATORY THERAPY IS HERE ASSISSTING THE PT AND FIO2 INCREASE TO 50%, PT ON TELEMETRY SR 02 SAT 97%
--- NOTE | 2020-03-16 05:16 | NUR ---
Patient peak pressure were elevated because patient was speaking above cuff. Patients vent settings (flow) were adjusted to maintain IE ratio of 1:2. Patient stable and suctioning. No respiratory distress no shortness of breathing noticed. Patient is stable at this time SP02 96 hr 88.
[2020-03-16] MEDS: BLOOD GLUCOSE MONITORING 1 DEV DEV FS SCH ×3 (05:54→17:56)
[2020-03-16] MEDS: INSULIN LISPRO SLIDING SCALE 100 UNITS/ML VIAL SUBQ PRN ×3 (05:56→17:20)
[2020-03-16] MEDS: DEXT 5% / NACL 0.45% 1,000 ML IV SCH ×2 (06:04→15:26)
--- NOTE | 2020-03-16 06:20 | NUR ---
BLOOD SUGAR TEST 246 COVERAGE WITH 4 UNITS SUB Q HUMALOG FOLLOW PROTOCOL, PT WILL BE ENDODRSED TO DAY SHIFT NURSE
[2020-03-16] MEDS ORDERED: FOAM DRESSING TP PRN (06:55)
--- NOTE | 2020-03-16 06:58 | NUR ---
PATIENT FIO2 INCREASED TO 50 % BECAUSE SATURATION WAS 82 AND HR 89. PATIENT STABLE ON CURRENT VENT SETTINGS WITH FIO2 AT 50%. RT WILL MONITOR PATIENT AND TITRATE FIO2.
--- NOTE | 2020-03-16 07:00 | NUR ---
RECEIVED REPORT FROM NIGHT NURSE FOR CONTINUITY OF CARE, PT IS STABLE, NO SIGNS OF DISTRESS NOTED, RESPIRATION ARE EVEN AND UNLABORED, TRACH TO VENT, PT AA0X2, PT HAS LEFT WRIST 22G INFUSING D51/2NS AT 70ML/H, PT HAS SACRAL REDNESS COVERED WITH FOAM DRESSING, BED IN LOW POSITIONS, ALL NEEDS MET AT THIS TIME, CALL LIGHT WITHIN REACH. WILL CONTINUE TO MONITOR.
[2020-03-16 07:09] LABS: ALBUMIN 3.4 g/dL (3.4-5.0); ANION GAP 9.1 (8-16); CARBON DIOXIDE 37.5 mmol/L (21-32); CREATININE 1.1 mg/dL (0.6-1.3); POTASSIUM 4.6 mmol/L (3.5-5.1); TOTAL BILIRUBIN 0.3 mg/dL (0.0-1.0)
[2020-03-16 07:18] LABS: BASOPHILS % (AUTO) 0.2 % (0.0-2.0); EOSINOPHILS # (AUTO) 0.1 K/uL (0-0.4); EOSINOPHILS % (AUTO) 0.3 % (0.0-4.0); HEMATOCRIT 35.8 % (36-52); HEMOGLOBIN 11.9 g/dL (12.0-18.0); LYMPHOCYTES # (AUTO) 0.6 K/uL (2.0-11.5); LYMPHOCYTES % (AUTO) 3.3 % (20.5-51.1); MEAN CORPUSCULAR HEMOGLOBIN 29 pg (27-31); MEAN CORPUSCULAR HGB CONC 33 g/dL (33-37); MEAN CORPUSCULAR VOLUME 86.8 fL (80-94); MONOCYTES % (AUTO) 10.7 % (1.7-9.3); NEUTROPHILS # (AUTO) 16.3 K/uL (1.8-7.7); NEUTROPHILS % (AUTO) 85.5 % (42.2-75.2); PLATELET COUNT (AUTO) 194 K/uL (140-450); RED BLOOD CELL COUNT(AUTO) 4.12 MIL/uL (4.20-6.10); RED CELL DISTRIBUTION WIDTH 14.6 % (11.6-13.7)
[2020-03-16 08:00] VITALS: BP 156/77
[2020-03-16] MEDS: ENOXAPARIN 40 MG/0.4 ML SYR SUBQ SCH (09:48)
--- NOTE | 2020-03-16 09:57 | NUR ---
ADMINISTERED SCHEDULED MEDICATION, MEDICATION EDUCATION GIVEN, PT NODDED UNDERSTANDING, PT IS STABLE, NO SIGNS OF DISTRESS NOTED, PT TRACH TO VENT, CALL LIGHT WITHIN REACH.
--- NOTE | 2020-03-16 10:58 | NUR ---
DC PLANNIN YRS OLD MALE PATIENT WAS ADMITTED FROM [facility] [place] DX OF PNEUMONIA. PATIENT HAS A HX OF CHRONIC RESP FAILURE WITH TRACH TO VENT, DM AND HTN. CXR SHOWED SMALL PLEURAL EFFUSION. COVID TEST PENDING.STARTED IV VANCOMYCIN/ZOSYN IV ABX . BLOOD, SPUTUM AND URINE CULTURE PENDING. CONSULTED PULMO WITH DR CONTEH. DC PLAN TO GO BACK TO [facility] WHEN STABLE CM TO FOLLOW. Addendum: 03/19/20 at 1342 by Gladis Becerra DC PLANNING: SEEN BY DR CONTEH ,WBC REMAINS HIGH CONSULTED WITH DR MORENO. CONTINUE WITH VANCOMYCIN IV , PASSED SWALLOWING TEST ADVANCED TO PUREE DIET. DC PLAN PER DR MORENO 'S RECOMMENDATION. CM TO FOLLOW Addendum: 03/19/20 at 1552 by Cayla Capone CM PATIENTS CLINICAL FAXED TO [facility], SPOKE TO JANA THEY ARE REVIEWING AND WILL CONTACT ME ONCE FINISHED. Addendum: 03/20/20 at 1228 by Gladis Becerra CM DC PLANNING: SEEN BY DR MORENO, ORDERED REPEAT URINE CULTURE AND CHEST XRAY WBC TRENDING UP . CONTINUE IV ABX ZOSYN AND VANCO AND ORDERED CT CHEST TO R/O EMPYEMA .DC PLAN TO GO BACK TO [facility] AWAITING URINE CULTURE RESULT. CM TO FOLLOW. Addendum: 03/21/20 at 1310 by Gladis Becerra CM DC PLANNING PT HAS A DC ORDER FAXED TO [facility], CONTACTED [facility] ,SPOKE WITH FAVIOLA MIRANDA PROVIDED THE AUTH # FOR [facility] [id number] AND FOR TRANSPORT [id number] SPOKE WITH JANA, BJ PT AND CAN GO TO ROOM 1A UNDER THE CARE OF DR TOMPKINS . # TO GIVE REPORT [phone]. ARRANGED TRANSPORT WITH [facility] SPOKE WITH LANCE WISE EARLIEST TIME TO SKI LIFT MECHANIC PATIENT IS BETWEEN 6-7 PM NOTIFIED VKI SMITH.
[2020-03-16 12:00] VITALS: BP 180/86
--- NOTE | 2020-03-16 12:00 | NUR ---
INFORMED DR SALCIDO PT HAS HIGH BP OF 180/86 BUT PT IS NPO AND PRN MEDS ARE PO, ALSO INFORMED PT FAILED SWALLOW EVALUATION, DR SALCIDO STATES HE WILL PUT IN ORDERS.
[2020-03-16] MEDS: hydrALAZINE 20 MG/ML VIAL IVP PRN (12:45)
--- NOTE | 2020-03-16 12:58 | NUR ---
ADMINISTERED HUMALOG 2 UNITS FOR BLOOD GLUCOSE OF 194, GAVE HYDRALAZINE FOR BP180/86, HR 84, MEDICATION EDUCATION GIVEN, PT TOLERATED MEDICATION WELL, PT IS STABLE, TRACH TO VENT, CALL LIGHT WITHIN REACH.
[2020-03-16] MEDS: MILD SOAP AND WATER TP SCH (14:01)
--- NOTE | 2020-03-16 15:27 | NUR ---
PT RESTING IN BED WATCHING TV, PT STABLE, PT TRACH TO VENT, NO SIGNS OF DISTRESS NOTED, CALL LIGHT WITHIN REACH.
--- NOTE | 2020-03-16 15:51 | NUR ---
ST TREATMENT NOTE S: Pt WAS SEEN AT BEDSIDE. HOB NEAR 90 DEGREES FOR ASPIRATION PRECAUTIONS. Pt WAS ALERT, RESPONSIVE, NON-VERBAL D/T TRACH BUT ABLE TO MOUTH WORDS, AND OVERALL COOPERATIVE. RN, PASCALE, CLEARED Pt FOR SWALLOW TX. RT, INGRID, WAS ABLE TO STANDBY FOR SUCTION AND ASSIST W/ CUFF DEFLATION/INFLATION. Pt DID NOT PASS SWALLOW EVAL 03/15/20. PLOF REPORTED TO BE MS/THIN W/ PMV AND FULL CUFF DEFLATION. Pt REPORTED NOT BEING ABLE TO TOLERATE PMV AT [facility], WELL HAVING DENTURES LEFT AT [facility]. O: SWALLOW TX COMPLETED. A: Pt WAS ABLE TO TOLERATE CUFF DEFLATION WITH MINIMAL VOICING NOTED. Pt REQUESTED SUCTION FOLLOWING CUFF DEFLATION, AND FOLLOWING INITIAL TRIALS OF THIN BY TSP. NO AUDIBLE CONGESTION NOTED. O2 SAT REMAINED AT 98-99% THROUGHOUT SESSION. Pt WAS ABLE TO TOLERATE ICE CHIPS, THIN BY 1/2 TSP. AND PUREE BY 1/2 TO LEVEL TSP W/O DIFFICULTY OR OVERT S/S OF ASPIRATION OR PENETRATION NOTED. AP TRANSFER AND SWALLOW RESPONSE WERE TIMELY WITH FULL LARYNGEAL ELEVATION AND EXCURSION. ADDITIONAL TRIALS OF MS AND THIN BY CUP/STRAW WITHHELD TODAY D/T DENTURES LEFT AT [facility], WELL POOR TOLERANCE OF THIN BY STRAW NOTED 03/15/20. P: REC PUREE FOOD BY LEVEL TSP AND THIN LIQUIDS BY 1/2 TSP ONLY. ASPIRATION PRECAUTIONS, ORAL CARE, SUCTION PRE/POST MEAL, CUFF DEFLATION DURING MEAL, AND FEEDER NEEDED. DO NOT POUR FOOD/LIQUID INTO MOUTH. PRESENT TSP FLAT ON TONGUE AND PULL TSP OUT WHEN Pt CLOSES MOUTH ON TSP. CONTINUE ST FOR SWALLOW TX FOR ONGOING DIET ANALYSIS, SAFE SWALLOW STRATEGIES, AND Pt/CAREGIVER EDUCATION. TANVIR HAY MS, CCC-POWERHOUSE OPERATOR TANVIR HAY MS, CCC-POWERHOUSE OPERATOR
[2020-03-16 16:00] VITALS: BP 163/84
--- NOTE | 2020-03-16 17:21 | NUR ---
ADMINISTERED HUMALOG FOR BLOOD GLUCOSE OF 270 FOR 6 UNITS, ADMINISTERED SCHEDULED MEDICATION PER PHARMACY [facility], MEDICATION EDUCATION GIVEN, PT TOLERATED WELL, PT IS STABLE. CALL LIGHT WITHIN REACH.
--- NOTE | 2020-03-16 17:51 | NUR ---
PT NOT IN ANY DISTRESS AT THIS TIME. TRACH IS SECURE WITH A PATENT AIRWAY. VENT ALARMS ON AND FUNCTIONING.
[2020-03-16] MEDS: cloNIDine 0.1 MG TAB PO PRN (18:04)
--- NOTE | 2020-03-16 18:13 | NUR ---
ADMINISTERED CATAPRES FOR BLOOD PRESSURE OF 163/84 AND HR 77, MEDICATION EDUCATION GIVEN, PT TOLERATED WELL, PT IS STABLE, PT TRACH TO VENT, CALL LIGHT WITHIN REACH.
--- NOTE | 2020-03-16 19:15 | NUR ---
RECEIVED PT AWAKE , RESPONDING TO TOUCH AND SOUND , CAN FOLLOW SIMPLE COMMAND , RESPONDING BY HEAD NODDING WHEN CALL HIS NAME . TRACH TO VENT - NID O2 SAT WNL. LOW TIN SCALE , IV SITES INTACT AND PATENT , ON PUREE W/ SAP - TOLERATED . SAFETY MEASURES IN PLACE . PLAN OF CARE DISCUSSED AND SHOWING UNDERSTANDING BY THUMBS UP AND HEAD NODDING. WILL CONT. TO MONITOR .
--- NOTE | 2020-03-16 19:15 | NUR ---
GAVE REPORT TO NIGHT NURSE FOR CONTINUITY OF CARE, PT IS STABLE
[2020-03-16 20:00] VITALS: BP 155/77
--- NOTE | 2020-03-16 22:00 | NUR ---
MADE ROUNDS , NO S/SX OF ACUTE DISTRESS NOTED , ON TELE MONITOR - SR , FLACC O - CALL LIGHT WITHIN REAC, WILL CONT. TO MONITOR
[2020-03-17] VITALS: BP 155/90
--- NOTE | 2020-03-17 | NUR ---
MADE ROUNDS , NO S/SX OF ACUTE DISTRESS NOTED AT THIS TIME , O2 SAT WNL . WILL CONT. TO MONITOR.
[2020-03-17] MEDS: INSULIN LISPRO SLIDING SCALE 100 UNITS/ML VIAL SUBQ PRN ×5 (00:23→23:21)
[2020-03-17] MEDS: BLOOD GLUCOSE MONITORING 1 DEV DEV FS SCH ×5 (00:24→23:24)
[2020-03-17] MEDS: MILD SOAP AND WATER TP SCH ×2 (00:24→12:16)
--- NOTE | 2020-03-17 00:43 | NUR ---
RELAY TO PHARMACIST THE LATEST RESULT OF VANCOMYCIN TROUGH - 19.1 - PER PHARMACY DON'T GIVE THE VANCOMYCIN DUE AT 5AM TODAY - THEY WILL CHANGE THE FREQ. - INFORM CHARGE NURSE .
--- NOTE | 2020-03-17 00:54 | NUR ---
PHARMACIST CALL - SHE SAID GIVE THE VANCOMYCIN DUE AT 5PM TODAY - AND THEY WILL CONT. TO MONITOR THE VANCOMYCIN TROUGH - CHARGE NURSE INFORM .
--- NOTE | 2020-03-17 02:00 | NUR ---
MADE ROUNDS , SLEEPING - O2 SAT WNL , CHEST RISE AND FALL EQUALLY , WILL CONT. TO MONITOR.
[2020-03-17 04:00] VITALS: BP 155/90
--- NOTE | 2020-03-17 04:00 | NUR ---
MADE ROUNDS , W/ AUDIBLE BREATH SOUNDS - O2 SAT WNL - SUCTION SECRETION - O2 SAT WNL AFTERWARDS , WILL CONT. TO MONITOR.
[2020-03-17] MEDS: PIPERACILLIN/TAZOBACTAM 3.375 GM in DEXTROSE 5% 50 ML IV SCH ×3 (04:28→20:00)
--- NOTE | 2020-03-17 04:30 | NUR ---
REFER TO RT - DUE TO DEC. O2 SAT 88 TO 87% - WILL CONT. TO MONITOR.
--- NOTE | 2020-03-17 05:00 | NUR ---
MADE ROUNDS , O2 SAT BACK TO WNL - 98 %- WILL CONT. TO MONITOR.
--- NOTE | 2020-03-17 05:15 | NUR ---
PATIENT COMFORTABLE ON CHARTED SETTINGS, 35% FIO2, REQUIRES SUCTIONING FOR DESATURATIONS. VENT IS PLUGGED INTO RED OUTLET, AMBU BAG BEDSIDE. CONTINUE TO MONITOR.
[2020-03-17] MEDS: VANCOMYCIN 1,000 MG in DEXTROSE 5% 250 ML IV SCH ×2 (05:49→17:07)
--- NOTE | 2020-03-17 06:00 | NUR ---
MADE ROUNDS , BP RE CHECK - BP 165 /77 VT 91 - APRESOLINE TO BE GIVEN ORDERED , WILL CONT. TO MONITOR.
[2020-03-17] MEDS: hydrALAZINE 20 MG/ML VIAL IVP PRN ×2 (06:43→16:25)
--- NOTE | 2020-03-17 07:30 | NUR ---
ENDORSED TO AM SHIFT - PT - STABLE .
--- NOTE | 2020-03-17 07:30 | NUR ---
RECEIVED REPORT FROM NIGHT NURSE RN, DENAE, FOR CONTINUITY OF CARE. PT IS STABLE, NO SIGNS OF DISTRESS NOTED, RESPIRATION ARE EVEN AND UNLABORED, TRACH TO VENT. IV SITE ON LEFT WRIST 22G INFUSING D5 1/2NS AT 70ML/H, SALINELOCK AT RIGHT WRIST 20G, PATENT AND FLUSHES WELL. PT HAS SACRAL REDNESS COVERED WITH FOAM DRESSING, BED IN LOW POSITIONS, DROPLET PRECAUTION IN PLACE, POC IS DISCUSSED. ALL NEEDS MET AT THIS TIME, CALL LIGHT WITHIN REACH. WILL CONTINUE TO MONITOR.
[2020-03-17 07:41] LABS: BASOPHILS % (AUTO) 0.3 % (0.0-2.0); EOSINOPHILS # (AUTO) 0.3 K/uL (0-0.4); EOSINOPHILS % (AUTO) 2.4 % (0.0-4.0); HEMATOCRIT 32.8 % (36-52); HEMOGLOBIN 10.9 g/dL (12.0-18.0); LYMPHOCYTES % (AUTO) 7.2 % (20.5-51.1); MEAN CORPUSCULAR HEMOGLOBIN 29 pg (27-31); MEAN CORPUSCULAR HGB CONC 33 g/dL (33-37); MEAN CORPUSCULAR VOLUME 86.2 fL (80-94); MONOCYTES # (AUTO) 1.8 K/uL (0.8-1.0); MONOCYTES % (AUTO) 13.1 % (1.7-9.3); NEUTROPHILS # (AUTO) 10.5 K/uL (1.8-7.7); PLATELET COUNT (AUTO) 187 K/uL (140-450); RED CELL DISTRIBUTION WIDTH 14.5 % (11.6-13.7); WHITE BLOOD COUNT (AUTO) 13.7 K/uL (4.8-10.8)
[2020-03-17 07:42] LABS: ALBUMIN 3.3 g/dL (3.4-5.0); ANION GAP 5.5 (8-16); CARBON DIOXIDE 39.4 mmol/L (21-32); CREATININE 0.9 mg/dL (0.6-1.3); POTASSIUM 3.9 mmol/L (3.5-5.1); TOTAL BILIRUBIN 0.5 mg/dL (0.0-1.0)
--- NOTE | 2020-03-17 07:50 | NUR ---
REASSESS PT'S V/S. BP 165/91, HR 95. CLONIDINE PO PRN INDICATED. WILL FOLLOW THROUGH
[2020-03-17 08:00] VITALS: BP 163/80
--- NOTE | 2020-03-17 08:30 | NUR ---
PT. IS CHANGED, CLEANED, AND TURNED. NO SIGNS OF DISTRESS NOTED. PT. IS ASSESSED, LUNG SOUNDS IS CLEAR, RESPIRATIONS EVEN AND UNLABORED WITH SAO2 AT 100%. HEART SOUNDS REGULAR WITH S1 &S2, CAP REFILL <3 SEC, EDEMA PRESENT BLE. SACRAL REDNESS FOUND WITH OPTIFOAM DRESSING. WILL CONTINUE TO MONITOR.
[2020-03-17] MEDS: ENOXAPARIN 40 MG/0.4 ML SYR SUBQ SCH (08:46)
[2020-03-17] MEDS: cloNIDine 0.1 MG TAB PO PRN ×2 (08:56→23:24)
--- NOTE | 2020-03-17 08:56 | NUR ---
MORNING MEDICATIONS GIVEN. NO SIGNS OF DISTRESS NOTED. WILL CONTINUE TO MONITOR.
[2020-03-17] MEDS: DEXT 5% / NACL 0.45% 1,000 ML IV SCH (11:27)
[2020-03-17] MEDS: MORPHINE SULFATE 2 MG/ML SYR IVP PRN ×2 (11:53→19:59)
[2020-03-17] MEDS: Z-GUARD PASTE TP SCH (11:54)
--- NOTE | 2020-03-17 11:55 | NUR ---
6 UNITS OF INSULIN GIVEN FOR BLOOD GLUCOSE OF 258. NO SIGNS OF DISTRESS NOTED. PT. IS CLEANED, CHANGED, AND TURNED. SACRAL WOUND DRESSING CLEANED AND CHANGED. PT. DENIES PAIN. WILL CONTINUE TO MONITOR.
[2020-03-17 12:00] VITALS: BP 157/70
--- NOTE | 2020-03-17 15:50 | NUR ---
PT. IS CHANGED, CLEANED, AND TURNED. V/S TAKEN BP 160/87, HR 91, SAO2 99%, TEMP 98.1. PT. DENIES PAIN BY SHAKING OF THE HEAD. NO SIGNS OF DISTRESS NOTED. WILL MEDICATE FOR HIGH BP. WILL CONTINUE TO MONITOR.
[2020-03-17 16:00] VITALS: BP 160/72
--- NOTE | 2020-03-17 16:52 | NUR ---
RECEIVED CALL FROM LAB ABOUT VANCOMYCIN TROUGH CRITICAL OF 18. WILL REPORT TO PHARMACY FOR CLEARANCE OF 1700 DOSE. WILL CONTINUE TO MONITOR.
--- NOTE | 2020-03-17 17:03 | NUR ---
SPOKE TO PHARMACY ABOUT PT'S VANCOMYCIN TROUGH OF 18. PHARMACIST CLEARED TO GIVE 1700 DOSE OF VANCOCIN. WILL FOLLOW THROUGH.
--- NOTE | 2020-03-17 17:30 | NUR ---
VANCOMYCIN IVPB GIVEN. V/S REASSESSED FOR HYDRALAZINE IVP, BP 149/74, HR 92. NO SIGNS OF DISTRESS NOTED. WILL CONTINUE TO MONITOR.
--- NOTE | 2020-03-17 18:30 | NUR ---
8 UNITS OF INSULIN GIVEN FOR BLOOD GLUCOSE OF 312. NO SIGNS OF DISTRESS NOTED. WILL CONTINUE TO MONITOR.
--- NOTE | 2020-03-17 19:00 | NUR ---
ENDORSED TO LIVING SKILLS ADVISOR RN, DILCIA, FOR CONTINUITY OF CARE.
--- NOTE | 2020-03-17 19:05 | NUR ---
RECEIVED REPORT FROM RONY RN DAYSHIFT NURSE AT BEDSIDE FOR CONTINUITY OF CARE, PT IN STABLE CONDITION.
[2020-03-17 20:00] VITALS: BP 149/69
--- NOTE | 2020-03-17 20:00 | NUR ---
PT C/O MORPHINE FOR SEVERE GENERALIZED PAIN IVP/PRN. PT IS AOX3, HE IS ABLE TO MAKE NEEDS KNOWN VIA MOUTHING THE WORDS. PT HAS 2 IV SITES L WRIST 22G WHICH IS RUNNING D51/2NS AT 70MLS/HR.. PT ALSO HAS 2ND SITE ON R WRIST 20 GUAGE WHICH IS SALINE LOCKED AND ASYMPTOMATIC. PT RESPIRATIONS EVEN AND UNLABORED ON ALL ORDERED AND CURRENT VENT SETTINGS. PT WAS SUCTION X2 PER REQUEST. V/S FOLLOWS: T 98.5 P 99 R 12 B/P 149/69 02 100% ON ALL TRACH TO VENT SETTINGS. ALL FALLS, DROPLET AND ASPIRATION PRECAUTIONS IN PLACE.
--- NOTE | 2020-03-17 21:00 | NUR ---
PT WAS GIVEN ORDERED ZOSYN WHICH IS HUNG AND RUNNING AT 100MLS/HR ORDERED. PT WAS ALSO TURNED, CHANGED AND REPOSITIONED. ALL OTHER REQUESTED ATTENDED BY STAFF AND ALL FALLS, DROPLET AND ASPIRATION PRECAUTIONS IN PLACE.
--- NOTE | 2020-03-17 23:30 | NUR ---
PT DECLINED TO BE REPOSITIONED IN BED AND MOUTHED THAT HE DID NOT NEED TO BE CHANGED AT THIS TIME. PT DID REQUEST AMBIEN PILL FOR SLEEPING. PT V/S FOLLOWS: T 97.6 P 93 R 12 B/P 171/73 02 99% ON ALL CURRENT AND ORDERED TRACH TO VENT SETTINGS. PT GIVEN PRN CLONIDINE PO FOR HTN WELL REQUESTED AMBIEN PO. PT ABLE TO DRINK A SMALL AMOUNT OF MILK. HOB UP AND ALL ASPIRATIONS, FALLS AND DROPLET PRECAUTIONS IN PLACE.
[2020-03-18] VITALS: BP 171/73
--- NOTE | 2020-03-18 | NUR ---
PT FINGERSTICK IS 272, PT GIVEN 6 UNITS OF HUMALOG COVERAGE. EDUCATION PROVIDED AT BEDSIDE, PT VERBALIZED UNDERSTANDING.ALL ORDERED PRECAUTIONS IN PLACE.
[2020-03-18] MEDS: MILD SOAP AND WATER TP SCH ×2 (01:00→13:11)
--- NOTE | 2020-03-18 02:00 | NUR ---
PT SLEEPING PEACEFULLY WITH ALL VENT SETTINGS WILL RECHECK B/P LATER. PT IS NEGATIVE FOR COVID 19, HE IS NOW ON STANDARD PRECAUTIONS. ALL FALLS PRECAUTIONS IN PLACE.
[2020-03-18 04:00] VITALS: BP 165/89
--- NOTE | 2020-03-18 04:30 | NUR ---
PT TURNED, CHANGED AND REPOSITIONED. PT WAS STRAIGHT CATHETED DUE TO NEED FOR URINE SAMPLE , WHICH WAS OBTAINED AND SENT TO LAB. ALL WOUND CARE DONE, AND FLAGYL HUNG ORDERED.
[2020-03-18] MEDS: hydrALAZINE 20 MG/ML VIAL IVP PRN ×2 (05:28→16:40)
--- NOTE | 2020-03-18 05:30 | NUR ---
FLAGYL DONE, VANCOMYCIN HUNG AND RUNNING AT 165MLS/HR
[2020-03-18] MEDS: BLOOD GLUCOSE MONITORING 1 DEV DEV FS SCH ×3 (06:00→17:56)
--- NOTE | 2020-03-18 06:00 | NUR ---
PT FINGERSTICK IS 207, HE WAS GIVEN 4 UNITS PER S/S OF HUMALOG COVERAGE. ALL REQUESTED ATTENDED BY STAFF.AL FALLS PRECAUTIONS IN PLACE.
[2020-03-18] MEDS: INSULIN LISPRO SLIDING SCALE 100 UNITS/ML VIAL SUBQ PRN ×3 (06:35→17:57)
[2020-03-18] MEDS: DEXT 5% / NACL 0.45% 1,000 ML IV SCH ×2 (07:08→15:46)
[2020-03-18] MEDS: VANCOMYCIN 1,000 MG in DEXTROSE 5% 250 ML IV SCH ×2 (07:09→16:40)
[2020-03-18] MEDS: PIPERACILLIN/TAZOBACTAM 3.375 GM in DEXTROSE 5% 50 ML IV SCH ×3 (07:09→20:44)
[2020-03-18 07:18] LABS: APPEARANCE,URINE CLEAR (CLEAR); BILIRUBIN,URINE NEGATIVE (NEGATIVE); BLOOD, URINE NEGATIVE (NEGATIVE); COLOR,URINE YELLOW (YELLOW); LEUKOCYTE ESTERASE ,URINE NEGATIVE (NEGATIVE); NITRITE, URINE NEGATIVE (NEGATIVE); UGLUCOSE TRACE (NEGATIVE)
[2020-03-18 07:26] LABS: RBC,URINE 0-5 /HPF (0-5); WBC,URINE 0-5 /HPF (0-5)
[2020-03-18] MEDS: MORPHINE SULFATE 2 MG/ML SYR IVP PRN ×4 (07:26→22:00)
--- NOTE | 2020-03-18 07:37 | NUR ---
RECEIVED REPORT FROM NIGHT RN. AOX3, FLACC 0, NO SOB, RESPIRATION ARE EVEN AND UNLABORED. TRACH TO VENT. IV SITE ON LW 22G INFUSING D5 1/2NS AT 70ML/HR, SALINE LOCK AT RW 20G. WITH SACRAL REDNESS WITH DRESSING INTACT. SAFETY PRECAUTIONS IN PLACE. CALL LIGHT WITHIN REACH. WILL CONTINUE TO MONITOR.
[2020-03-18] MEDS: ALBUTEROL 0.083% 2.5 MG/3 ML NEBU INH PRN ×4 (07:59→21:00)
[2020-03-18 08:00] VITALS: BP 163/69
[2020-03-18] MEDS: cloNIDine 0.1 MG TAB PO PRN (08:24)
--- NOTE | 2020-03-18 08:30 | NUR ---
DUE MORNING MEDS GIVEN ORDERED. CATAPRES PRN FOR SBP<160 GIVEN ORDERED. WILL REASSESS BP IN 1 HOUR
[2020-03-18] MEDS: ENOXAPARIN 40 MG/0.4 ML SYR SUBQ SCH (09:00)
[2020-03-18 09:43] LABS: HEMATOCRIT 35.9 % (36-52); HEMOGLOBIN 11.5 g/dL (12.0-18.0); MEAN CORPUSCULAR HEMOGLOBIN 28 pg (27-31); MEAN CORPUSCULAR HGB CONC 32 g/dL (33-37); MEAN CORPUSCULAR VOLUME 87.2 fL (80-94); PLATELET COUNT (AUTO) 211 K/uL (140-450); RED BLOOD CELL COUNT(AUTO) 4.11 MIL/uL (4.20-6.10); RED CELL DISTRIBUTION WIDTH 14.5 % (11.6-13.7); WHITE BLOOD COUNT (AUTO) 15.1 K/uL (4.8-10.8)
[2020-03-18 09:54] LABS: EOSINOPHILS % (MANUAL) 4 % (0-4); LYMPHOCYTES % (MANUAL) 6 % (20-46); MONOCYTES % (MANUAL) 10 % (5-12)
[2020-03-18 10:09] LABS: ALBUMIN 3.4 g/dL (3.4-5.0); ANION GAP 6.4 (8-16); CARBON DIOXIDE 38.2 mmol/L (21-32); CREATININE 0.9 mg/dL (0.6-1.3); POTASSIUM 3.6 mmol/L (3.5-5.1); TOTAL BILIRUBIN 0.5 mg/dL (0.0-1.0)
[2020-03-18] MEDS: HYDROcodone/APAP 5/325 MG 1 TAB TAB PO PRN ×2 (10:23→16:40)
--- NOTE | 2020-03-18 10:26 | NUR ---
PERICARE DONE, REPOSITIONED AND TRACH CARE DONE. NO SOB, RESPIRATIONS ARE EVEN AND UNLABORED
[2020-03-18 12:00] VITALS: BP 161/64
--- NOTE | 2020-03-18 12:00 | NUR ---
BLOOD SUGAR 307. COVERAGE GIVEN.
[2020-03-18] MEDS: Z-GUARD PASTE TP SCH (13:11)
[2020-03-18] MEDS: ALUMINUM HYD/MAG/SIMETHICONE 30 ML UDC PO PRN ×2 (13:45→20:57)
--- NOTE | 2020-03-18 13:45 | NUR ---
WITH C/O ABD PAIN, MYLANTA GIVEN ORDERED
--- NOTE | 2020-03-18 14:07 | NUR ---
03/18/20 RD FOLLOW UP COMPLETED PLEASE REFER TO NUTRITION PROGRESS NOTE UNDER CARE ACTIVITY FOR ESTIMATED NUTRITION NEEDS. RD RECOMMENDATIONS: 1. RECOMMEND CONTINUE PUREE DIET 2. ENCOURAGE INCREASED PO INTAKE 3. IF PO INTAKE CONTINUES TO BE LOW, CONSIDER NUTRITIONAL SUPPORT 4. RD TO FOLLOW-UP 2-3 DAYS, HIGH RISK EMELI MONTGOMERY MBA, RD
--- NOTE | 2020-03-18 14:25 | NUR ---
STILL WITH C/O ACHING ABD PAIN 05/14. MORPHINE GIVEN ORDERED. WILL REASSESS IN 1 HOUR
[2020-03-18 16:00] VITALS: BP 168/64
--- NOTE | 2020-03-18 16:30 | NUR ---
RECEIVED REPORT FROM LUIS PETTIT AT BEDSIDE FOR CONTINUITY OF CARE. PATIENT RESTING IN BED, C/O PAIN, MADE HIM AWARE OF TIME OF NEXT DOSE. HE REQUESTED NORCO PRN AT THIS TIME. WILL ASSESS PATIENT AND GIVE PAIN MED NEEDED.
--- NOTE | 2020-03-18 16:40 | NUR ---
BP 168/70 HR 93. PRN HYDRALAZINE GIVEN. WILL REASSESS PATIENT. PRN NORCO GIVEN. PATIENT TOLERATING IT WHILE WAITING FOR MORPHINE. CALLED PHARMACY TO CLARIFY ABOUT NO NEED FOR TROUGH, PHARMACY STATED OK TO GIVE. [address] MUELLER IN TO SEE PATIENT. WILL WAIT FOR HIS NEW ORDERS.
--- NOTE | 2020-03-18 17:35 | NUR ---
PT C/O "I CANT' BREATHE". REPOSITIONED PT TO OFFLOAD PRESSURED AREAS AND FOR COMFORT. PATIENT SUCTIONED, MINIMAL PINK SECRETIONS NOTED. PATIENT REQUESTED FOR BREATHING TREATMENT. CALLED RT INGRID ABOUT PATIENT'S REQUEST. PATIENT AWARE THAT RT WILL COME TO GIVE HIM A BREATHING TREATMENT.
--- NOTE | 2020-03-18 17:42 | NUR ---
PRN BREATHING TX ADMINISTERED. PT SUCTIONED OBTAINED SCANT AMOUNT OF THICK SECRETIONS, AIRWAY IS PATENT AND SECURE. VENT ALARMS ON AND FUNCTIONING.
--- NOTE | 2020-03-18 17:57 | NUR ---
BLOOD SUGAR 328, COVERAGE GIVEN. PATIENT SUCTIONED REQUESTED. STILL C/O PAIN. DINNER PRESENT, PATIENT REFUSING TO EAT AT THE MOMENT D/T PAIN. WILL CONTINUE TO MONITOR PATIENT.
--- NOTE | 2020-03-18 18:47 | NUR ---
PAGED DR. GOMEZ ABOUT PATIENT'S BLOOD SUGAR. DR. BRITT GEOSPATIAL TECHNOLOGIST AND CALLED BACK. INFORMED HIM ABOUT PT ON D5 1/2 NS @ 70 CC/HR, BLOOD SUGARS HAVE BEEN ABOVE 300'S TODAY WITH COVERAGE AND PATIENT'S PUREED DIET. PER DR. BRITT, PATIENT CAN BE ON 1/2 NS@ 70 CC/HR WITH PUREED CCHO 60G DIET. ORDERS NOTED AND WILL BE CARRIED OUT. PATIENT MEDICATED WITH PRN PAIN MEDICATION. WILL ENDORSE PAIN REASSESSMENT TO AIRCRAFT ENGINE INSTALLER NURSE.
--- NOTE | 2020-03-18 19:10 | NUR ---
RECEIVED PT ON AC VT 400 PEEP 5 F10 PT SAT 95% HR 100 BMV @ BEDSIDE VENT PLUGGED INTO RED OUTLET WILL CONTINUE TO MONITOR
--- NOTE | 2020-03-18 19:32 | NUR ---
RECEIVED REPORT FROM GEOVANNI RN DAYSHIFT NURSE AT BEDSIDE FOR CONTINUITY OF CARE, PT IN STABLE CONDITION.
[2020-03-18 19:42] VITALS: BP 152/68
[2020-03-18] MEDS: NACL 0.45% 1,000 ML IV SCH (20:43)
--- NOTE | 2020-03-18 21:04 | NUR ---
PT IN BED RESTING WITH EYES CLOSED BUT AROUSABLE TO NAME. PT RESPIRATIONS ARE EVEN AND UNLABORED ON ALL CURRENT VENT TO TRACH SETTINGS. PT FLUIDS CHANGED PRE ORDER HE IS NOW RUNNING 1/2 NS AT 70MLS/HR. ZOSYN HUNG AND RUNNING ORDERED AT 100MLS/HR. PT GIVEN PRN COLACE FOR CONSTIPATION AND PO MAALOX FOR UPSET STOMACH. PT DENIES ANY PAIN AT THIS TIME, HE ALSO DECLINES TO BE TURNED AND CHANGED SAYING THAT HE IS COMFORTABLE. V/S FOLLOWS: T 98.2 P 101 R 12 B/P 152/68 02 95% ON ALL TRACH TO VENT SETTINGS. ALL FALLS PRECAUTIONS IN PLACE.
--- NOTE | 2020-03-18 22:15 | NUR ---
PT REQUESTED TO BE TURNED AND CHANGED AND REPOSITIONED, PT C/O OF SEVERE 8/10 GENERALIZED PAIN, HE WAS GIVEN PRN/IVP MORPHINE, WILL MONITOR FOR EFFECT. ALL STATED REQUESTS ATTENDED BY STAFF, AND ALL FALLS PROTOCOL IN PLACE.
--- NOTE | 2020-03-18 22:35 | NUR ---
DUE TO CHANGE OF ASSIGNMENT, REPORT GIVEN TO JORGE SMITH AT BEDSIDE FOR CONTINUITY OF CARE, PT IN STABLE CONDITION.
[2020-03-19] VITALS: BP 155/68
[2020-03-19] MEDS: INSULIN LISPRO SLIDING SCALE 100 UNITS/ML VIAL SUBQ PRN ×4 (01:35→18:21)
[2020-03-19] MEDS: MILD SOAP AND WATER TP SCH ×2 (01:36→12:11)
--- NOTE | 2020-03-19 01:36 | NUR ---
PATIENT LYING DOWN IN BED SLEEPING, AROUSABLE BY VOICE. NO DISTRESS NOTED. SCHEDULED MEDICATIONS DUE GIVEN. WILL CONTINUE TO MONITOR
[2020-03-19] MEDS: MORPHINE SULFATE 2 MG/ML SYR IVP PRN ×6 (02:14→21:55)
--- NOTE | 2020-03-19 02:20 | NUR ---
PATIENT COMPLAINS OF PAIN. MORPHINE GIVEN AT THIS TIME. WILL CONTINUE TO MONITOR.
[2020-03-19 04:00] VITALS: BP 169/82
[2020-03-19] MEDS: PIPERACILLIN/TAZOBACTAM 3.375 GM in DEXTROSE 5% 50 ML IV SCH ×3 (04:14→20:45)
[2020-03-19] MEDS: hydrALAZINE 20 MG/ML VIAL IVP PRN (04:41)
--- NOTE | 2020-03-19 04:45 | NUR ---
ASSISTED RN NIGHT IN CLEANING AND REPOSITIONING PATIENT. PATIENT'S BP 167/82, 97 PULSE. HYDRALAZINE PRN GIVEN PER MD ORDERS. OTHER SCHEDULED MEDICATIONS DUE GIVEN. WILL CONTINUE TO MONITOR.
[2020-03-19] MEDS: VANCOMYCIN 1,000 MG in DEXTROSE 5% 250 ML IV SCH (05:27)
--- NOTE | 2020-03-19 05:35 | NUR ---
PATIENT LYING DOWN IN BED WITH COMPLAINTS OF PAIN. MORPHINE GIVEN AT THIS TIME. OTHER SCHEDULED MEDICATIONS DUE GIVEN. WILL CONTINUE TO MONITOR.
[2020-03-19] MEDS: IPRATROPIUM 0.02% 0.5 MG/2.5 ML NEBU INH PRN ×3 (05:52→20:10)
[2020-03-19] MEDS: ALBUTEROL 0.083% 2.5 MG/3 ML NEBU INH PRN ×3 (05:52→20:10)
[2020-03-19] MEDS: cloNIDine 0.1 MG TAB PO PRN (05:56)
[2020-03-19] MEDS: BLOOD GLUCOSE MONITORING 1 DEV DEV FS SCH ×4 (06:05→18:04)
--- NOTE | 2020-03-19 06:08 | NUR ---
ASSISTED BACK SEWER IN CLEANING AND REPOSITIONING PATIENT. SCHEDULED MEDICATIONS DUE GIVEN. WILL CONTINUE TO MONITOR.
[2020-03-19 07:21] LABS: ALBUMIN 3.5 g/dL (3.4-5.0); ANION GAP 9.7 (8-16); CARBON DIOXIDE 37.3 mmol/L (21-32); TOTAL BILIRUBIN 0.5 mg/dL (0.0-1.0)
--- NOTE | 2020-03-19 07:25 | NUR ---
GAVE REPORT AM SHIFT NURSE FOR CONTINUITY OF CARE. PATIENT IN STABLE CONDITION.
--- NOTE | 2020-03-19 07:26 | NUR ---
Report received from pm nurse Preston. Pt resting in bed, respirations even & nonlabored on trach to vent (AC 30%FiO2 400TV 35L/min 10RR 5PEEP). Left hand IV 20G intact with ongoing NS @ 70ml/hr; right wrist IV 20G saline lock intact. HOB elevated to 35. Call light within reach. Will continue to monitor.
[2020-03-19 07:58] LABS: BASOPHILS # (AUTO) 0.1 K/uL (0.00-0.22); BASOPHILS % (AUTO) 0.5 % (0.0-2.0); EOSINOPHILS # (AUTO) 0.3 K/uL (0-0.4); EOSINOPHILS % (AUTO) 1.7 % (0.0-4.0); HEMATOCRIT 36.3 % (36-52); HEMOGLOBIN 11.7 g/dL (12.0-18.0); LYMPHOCYTES # (AUTO) 1.2 K/uL (2.0-11.5); LYMPHOCYTES % (AUTO) 6.7 % (20.5-51.1); MEAN CORPUSCULAR HEMOGLOBIN 28 pg (27-31); MEAN CORPUSCULAR HGB CONC 32 g/dL (33-37); MONOCYTES # (AUTO) 2.4 K/uL (0.8-1.0); MONOCYTES % (AUTO) 13.7 % (1.7-9.3); NEUTROPHILS # (AUTO) 13.5 K/uL (1.8-7.7); NEUTROPHILS % (AUTO) 77.4 % (42.2-75.2); PLATELET COUNT (AUTO) 204 K/uL (140-450); RED BLOOD CELL COUNT(AUTO) 4.17 MIL/uL (4.20-6.10); RED CELL DISTRIBUTION WIDTH 14.8 % (11.6-13.7); WHITE BLOOD COUNT (AUTO) 17.5 K/uL (4.8-10.8)
[2020-03-19 08:00] VITALS: BP 144/68
[2020-03-19] MEDS: ENOXAPARIN 40 MG/0.4 ML SYR SUBQ SCH (09:17)
[2020-03-19] MEDS: NACL 0.45% 1,000 ML IV SCH ×2 (09:18→23:36)
--- NOTE | 2020-03-19 10:57 | NUR ---
FIO2 TITRATED TO 24%. PT NOT IN ANY DISTRESS AWAKE AND ALERT IN BED AT THIS TIME. WILL CONTINUE TO MONITOR.
[2020-03-19 12:00] VITALS: BP 157/86
[2020-03-19] MEDS ORDERED: MAGNESIUM CITRATE 300 ML BTL PO SCH (12:00)
[2020-03-19] MEDS: Z-GUARD PASTE TP SCH (12:11)
--- NOTE | 2020-03-19 13:28 | NUR ---
ST NOTE PER Pt AND RNSHANI, Pt IS TOLERATING PUREE AND THIN LIQUID DIET WELL W/O OVERT S/S OF ASPIRATION OR PENETRATION NOTED. Pt IS REPORTEDLY TOLERATING THIN VIA STRAW. Pt REFUSED THIN TRIALS W/ ST D/T "FEELING TOO FULL." REC TO CONTINUE PUREE AND THIN DIET W/ ASPIRATION PRECAUTIONS, ORAL CARE, AND FEEDER. REC SUCTION PRE/POST MEALS, AND CUFF DEFLATION DURING MEALS IF FEASIBLE. D/C SKILLED ST FOR SWALLOW TX. Pt HAS FUNCTIONAL SWALLOW FOR Pt AT THIS TIME. TANVIR HAY, MS, CCC-ELEVATOR REPAIRER
[2020-03-19] MEDS: LORazepam 2 MG/ML VIAL IVP PRN (15:05)
--- NOTE | 2020-03-19 15:05 | NUR ---
Lorazepam administered for agitation as e/b restlessness. Pt repositioned for comfort. Trach to vent in place, respirations even & nonlabored. Will cont to monitor.
--- NOTE | 2020-03-19 16:00 | NUR ---
Pt resting quietly in bed, watching TV, no signs of distress.
--- NOTE | 2020-03-19 17:51 | NUR ---
PT NOT IN ANY DISTRESS AT THIS TIME. VENT ALARMS ON AND FUNCTIONING. TRACH IS SECURE WITH A PATENT AIRWAY.
[2020-03-19] MEDS: VANCOMYCIN HCL 750 MG in DEXTROSE 5% 250 ML IV SCH (18:00)
--- NOTE | 2020-03-19 19:10 | NUR ---
RECEIVED BEDSIDE REPORT FROM DAY SHIFT NURSE. PT WAS AWAKE AND ALERT. BREATHING IS EVEN AND UNLABORED. BED IS IN THE LOWEST POSITION AND CALL LIGHT IS WITHIN REACH. IV IS INTACT AND PATENT RUNNING FLUIDS. PLAN OF CARE WAS DISCUSSED AND WILL CONTINUE TO MONITOR PT.
--- NOTE | 2020-03-19 19:20 | NUR ---
Report given to pm nurse Kisses.
--- NOTE | 2020-03-19 19:30 | NUR ---
PT IS AWAKE AND ALERT. A&O X 4. TRACH TO VENT WITH RESPIRATIONS EVEN AND UNLABORED. SKIN IS WARM AND DRY. IV IS PATENT AND INTACT. WHEEZES IN THE UPPER LOBES OF THE LUNGS BILATERALLY HEARD UPON INSPIRATION. DIMINISHED LUNG SOUNDS ON THE LOWER LOBES BILATERALLY. PATIENT IS NONVERBAL BUT IS ABLE TO MOUTH HIS NEEDS. PATIENT IS IN STABLE CONDITION.
[2020-03-19 21:35] VITALS: BP 161/82
[2020-03-19] MEDS: ALUMINUM HYD/MAG/SIMETHICONE 30 ML UDC PO PRN (23:21)
--- NOTE | 2020-03-19 23:21 | NUR ---
PT IS AWAKE AND COMPLAINING ABOUT FULLNESS IN HIS ABDOMEN. UPON PALPATION STOMACH WAS FIRM AND NONTENDER. PT WAS GIVEN MYLANTA 20 ML. MEDICATION EDUCATION WAS PROVIDED. WILL CONTINUE TO MONITOR.
--- NOTE | 2020-03-19 23:35 | NUR ---
PT IS STILL COMPLAINING OF STOMACH FULLNESS AND REQUESTS AN ENEMA. PT WAS GIVEN A FLEET ENEMA OF 118 ML. MEDICATION EDUCATION WAS PROVIDED. WILL MONITOR FOR A BOWEL MOVEMENT.
--- NOTE | 2020-03-19 23:45 | NUR ---
PT HAD A BOWEL MOVEMENT DUE TO PRN MEDICATION OF THE FLEET ENEMA. PT'S SOILED LINENS ARE CHANGED AND POSITIONED ON HIS LEFT SIDE.
[2020-03-20] VITALS: BP 139/65
[2020-03-20] MEDS: BLOOD GLUCOSE MONITORING 1 DEV DEV FS SCH ×4 (00:30→17:14)
[2020-03-20] MEDS: INSULIN LISPRO SLIDING SCALE 100 UNITS/ML VIAL SUBQ PRN ×4 (00:35→17:16)
--- NOTE | 2020-03-20 01:00 | NUR ---
PT'S SOILED LINENS ARE BEING CHANGED BY THE PHOTO GRAPHICS LIBRARIAN. PT WAS TURNED ON HIS LEFT SIDE. BLANKET WAS PROVIDED FOR COMFORT. PATIENT IS STABLE.
[2020-03-20] MEDS: MILD SOAP AND WATER TP SCH ×2 (02:22→12:00)
[2020-03-20 04:00] VITALS: BP 159/74
[2020-03-20] MEDS: PIPERACILLIN/TAZOBACTAM 3.375 GM in DEXTROSE 5% 50 ML IV SCH (04:08)
[2020-03-20] MEDS: LORazepam 2 MG/ML VIAL IVP PRN (04:12)
--- NOTE | 2020-03-20 04:20 | NUR ---
ATIVAN 0.5 MG WAS GIVEN FOR AGITATION. BREATHING IS EVEN AND UNLABORED. PATIENT IS AWAKE AND NO SIGNS OF DISTRESS. WILL CONTINUE TO MONITOR.
[2020-03-20] MEDS: VANCOMYCIN HCL 750 MG in DEXTROSE 5% 250 ML IV SCH ×2 (05:37→17:17)
[2020-03-20 06:27] LABS: HEMATOCRIT 35.6 % (36-52); HEMOGLOBIN 11.4 g/dL (12.0-18.0); MEAN CORPUSCULAR HEMOGLOBIN 28 pg (27-31); MEAN CORPUSCULAR HGB CONC 32 g/dL (33-37); MEAN CORPUSCULAR VOLUME 87.4 fL (80-94); PLATELET COUNT (AUTO) 227 K/uL (140-450); RED BLOOD CELL COUNT(AUTO) 4.08 MIL/uL (4.20-6.10); RED CELL DISTRIBUTION WIDTH 14.7 % (11.6-13.7); WHITE BLOOD COUNT (AUTO) 20.3 K/uL (4.8-10.8)
--- NOTE | 2020-03-20 06:37 | NUR ---
PT WAS STRAIGHT CATHED FOR A CLEAN CATCH URINE SAMPLE. PT TOLERATED THE PROCEDURE WELL. SPECIMEN WAS SENT TO LAB.
[2020-03-20 07:05] LABS: LYMPHOCYTES % (MANUAL) 5 % (20-46); MONOCYTES % (MANUAL) 11 % (5-12)
[2020-03-20 07:06] LABS: EOSINOPHILS % (MANUAL) 2 % (0-4)
--- NOTE | 2020-03-20 07:10 | NUR ---
RECEIVED PATIENT FROM DIRECTOR TRANSLATION NURSE. ADMINISTERED MEDICATIONS PER ORDER AND TOLERATED WELL. PT IS CURRENTLY LAYING IN BED AWAKE WITH NO SIGNS OF DISTRESS NOTED AT THIS TIME. RESPIRATIONS ARE EVEN AND UNLABORED ON TRACH TO VENT, WITH NO SIGNS OF DISTRESS AT THIS TIME. SKIN IS INTACT WITH IV ASYMPTOMATIC, PATENT AND INFUSING PER ORDER. PT DOES NOT COMPLAIN OF PAIN AT THIS TIME AND ASKED TO BE SAT UP IN BED. SAFETY MEASURES IN PLACE AND WILL CONTINUE TO MONITOR.
[2020-03-20 07:16] LABS: ANION GAP 9.7 (8-16); CREATININE 0.9 mg/dL (0.6-1.3)
--- NOTE | 2020-03-20 07:20 | NUR ---
PT IS ENDORSED TO DAY SHIFT NURSE FOR CONTINUITY OF CARE. PATIENT IS STABLE AND ALERT AT THIS TIME. PLAN WAS DISCUSSED WITH DAY SHIFT NURSE.
--- NOTE | 2020-03-20 07:20 | NUR ---
PT REMAINS ON DOCUMENTED SETTINGS, TRACH IS SECURED AND INTACT. PT SHOWS NO SIGN OF DISTRESS AT THIS TIME. VENT CHECK DONE, PRN TX ADMINISTERED. VENT PLUGGED INTO RED OUTLET, ALARMS ON AND FUNCTIONING, AMBU BAG AT BEDSIDE, WILL CONTINUE TO MONITOR.
[2020-03-20 07:24] LABS: POTASSIUM 2.7 mmol/L (3.5-5.1)
[2020-03-20 08:00] VITALS: BP 157/73
[2020-03-20] MEDS: ALBUTEROL 0.083% 2.5 MG/3 ML NEBU INH PRN ×3 (08:23→19:15)
--- NOTE | 2020-03-20 09:00 | NUR ---
ADMINISTERED MEDICATIONS PER ORDER AND TOLERATED WELL. PT IS CURRENTLY LAYING IN BED WITH NO SIGNS OF DISTRESS AT THIS TIME. PATIENT STATES THAT HIS STOMACH FEELS UNCOMFORTABLE AND WILL TRY TO EAT. SAFETY MEASURES IN PLACE AND WILL CONTINUE TO MONITOR.
[2020-03-20] MEDS: ENOXAPARIN 40 MG/0.4 ML SYR SUBQ SCH (09:02)
[2020-03-20 09:24] LABS: APPEARANCE,URINE HAZY (CLEAR); BILIRUBIN,URINE NEGATIVE (NEGATIVE); BLOOD, URINE NEGATIVE (NEGATIVE); COLOR,URINE YELLOW (YELLOW); LEUKOCYTE ESTERASE ,URINE NEGATIVE (NEGATIVE); NITRITE, URINE NEGATIVE (NEGATIVE); UGLUCOSE 1+ (NEGATIVE)
[2020-03-20 09:43] LABS: RBC,URINE 0-5 /HPF (0-5); WBC,URINE 0-5 /HPF (0-5)
--- NOTE | 2020-03-20 10:00 | NUR ---
PT ASKED FOR BREATHING TREATMENT AND RESPIRATORY IS AWARE. PT HAS BEEN CHANGED AND HAS SMALL BM. SAFETY MEASURES IN PLACE AND WILL CONTINUE TO MONITOR.
[2020-03-20] MEDS: POTASSIUM CHLORIDE 20% 40 MEQ/15 ML UDC GT SCH ×2 (10:08→14:59)
[2020-03-20 12:00] VITALS: BP 153/81
[2020-03-20] MEDS: Z-GUARD PASTE TP SCH (12:01)
--- NOTE | 2020-03-20 12:50 | NUR ---
TRANSFERRED PT BACK FROM CT APPROX 1320. NO SIGN OF DISTRESS NOTED, VENT PLUGGED INTO RED OUTLET, ALARMS ON AND FUNCTIONING, AMBU BAG AT BEDSIDE. TRACH SECURED AND INTACT. WILL CONTINUE TO MONITOR.
--- NOTE | 2020-03-20 12:54 | NUR ---
BLOOD GLUCOSE IS 172 THEREFORE 2 UNITS OF INSULIN HAVE BEEN ADMINISTERED. PT HAS BEEN CHANGED AND HAD BOWEL MOVEMENT AND VOID. SAFETY MEASURES IN PLACE AND WILL CONTINUE TO MONITOR.
--- NOTE | 2020-03-20 13:00 | NUR ---
RADIOLOGY CAME TO TAKE PT FOR A CT SCAN. ASSISTED RADIOLOGIST AND RESPIRATORY TO RADIOLOGY DEPARTMENT.
--- NOTE | 2020-03-20 13:25 | NUR ---
PT ARRIVED BACK FROM RADIOLOGY. PT TOLERATED WELL, WITH NO SIGNS OF DISTRESS. SAFETY MEASURES IN PLACE AND WILL CONTINUE TO MONITOR.
--- NOTE | 2020-03-20 14:56 | NUR ---
ADMINISTERED MEDICATIONS PER ORDER AND TOLERATED WELL. PT REQUESTED CHOCOLATE PUDDING. SAFETY MEASURES IN PLACE AND WILL CONTINUE TO MONITOR, NO SIGNS OF DISTRESS NOTED.
[2020-03-20 16:00] VITALS: BP 158/74
--- NOTE | 2020-03-20 16:00 | NUR ---
PT REQUESTED BREATHING TREATMENT, PT HAS BEEN SUCTIONED WITH VERY LITTLE OUTPUT SAFETY MEASURES IN PLACE AND WILL CONTINUE TO MONITOR.
--- NOTE | 2020-03-20 16:50 | NUR ---
PT REMAINS ON DOCUMENTED SETTINGS. TRACH SECURED AND INTACT. NO DISTRESS NOTED AT THIS TIME. VENT CHECK DONE, VENT PLUGGED INTO RED OUTLET, ALARMS ON AND FUNCTIONING, AMBU BAG AT BEDSIDE.
[2020-03-20] MEDS: IPRATROPIUM 0.02% 0.5 MG/2.5 ML NEBU INH PRN ×2 (17:00→19:15)
--- NOTE | 2020-03-20 17:20 | NUR ---
ADMINISTERED MEDICATIONS PER ORDER AND TOLERATED WELL. BLOOD GLUCOSE IS 161 THEREFORE 2 UNITS OF INSULIN HAVE BEEN ADMINISTERED. PT IS NO SIGNS OF DISTRESS. SAFETY MEASURES IN PLACE AND WILL CONTINUE TO MONITOR.
--- NOTE | 2020-03-20 18:43 | NUR ---
RESPIRATORY IS AT BED SIDE CURRENTLY SUCTIONING PT. PT REQUESTED TO HAVE DIET SODA TO HELP HIM WITH GAS. SAFETY MEASURES IN PLACE AND WILL CONTINUE TO MONITOR.
--- NOTE | 2020-03-20 18:54 | NUR ---
PT SODAS HAS BEEN DELIVERED AND PT TOLERATED WELL. PT STATES THAT HE WANTS ANOTHER BREATHING TREATMENT. SAFETY MEASURES IN PLACE AND WILL ENDORSE TO CUPOLA OPERATOR FOR CONTINUITY OF CARE.
--- NOTE | 2020-03-20 19:10 | NUR ---
REPORT RECEIVED FROM AM SHIFT NURSE FOR CONTINUITY OF CARE, PATIENT ON TELE MONITOR AND TRACH TO VENT. RT IS BEDSIDE WITH TREATMENT IN PROGRESS. NO S/S OF DISTRESS AT THIS TIME. IV FLUIDS INFUSING. BED IN LOW POSITION AND CALL LIGHT WITHIN REACH. WILL CONTINUE TO MONITOR PATIENT.
[2020-03-20 20:00] VITALS: BP 118/51
--- NOTE | 2020-03-20 21:20 | NUR ---
PATIENT SLEEPING NO S/S OF DISTRESS NOTED. TRACH TO VENT INTACT
--- NOTE | 2020-03-20 23:50 | NUR ---
PATIENT POSITION CHANGED, AND CLEAN AND DRY. IV SITE CHANGED TO RIGHT THUMB. LEFT HAND IV AND RIGHT WRIST IV DC'D. PATIENT TOLERATED WELL. HE WAS GIVEN SOME SIPS OF FLUID AND SUCTIONED. PATIENT IS NOW RESTING COMFORTABLY, BED IN LOW POSITION AND CALL LIGHT WITHIN REACH. WILL CONTINUE TO MONITOR.
[2020-03-21] VITALS: BP 144/67
[2020-03-21] MEDS: BLOOD GLUCOSE MONITORING 1 DEV DEV FS SCH ×3 (00:05→12:58)
[2020-03-21] MEDS: MILD SOAP AND WATER TP SCH ×2 (01:02→12:17)
--- NOTE | 2020-03-21 01:29 | NUR ---
SPUTUM CULTURE COLLECTED BY RT.
--- NOTE | 2020-03-21 03:30 | NUR ---
ROUNDS DONE AND PATIENT SLEEPING. NO S/S OF DISTRESS NOTED. WILL CONTINUE TO MONITOR.
[2020-03-21 04:00] VITALS: BP 149/77
--- NOTE | 2020-03-21 04:48 | NUR ---
LABORATORY BEDSIDE TO DRAW BLOOD FOR KEHINDE TROPH.
[2020-03-21] MEDS: IPRATROPIUM 0.02% 0.5 MG/2.5 ML NEBU INH PRN ×3 (05:26→15:15)
[2020-03-21] MEDS: ALBUTEROL 0.083% 2.5 MG/3 ML NEBU INH PRN ×3 (05:26→15:15)
--- NOTE | 2020-03-21 05:35 | NUR ---
SPOKE TO PHARMACIST MAXIMINO, HOLD 0600 DOSE OF VANCOMYCIN, PHARMACY WILL DOSE THE NEXT DOSE
[2020-03-21] MEDS: VANCOMYCIN HCL 750 MG in DEXTROSE 5% 250 ML IV SCH (06:00)
--- NOTE | 2020-03-21 06:04 | NUR ---
BLOOD GLUCOSE 147, NO COVERAGE NEEDED.
[2020-03-21 06:21] LABS: BASOPHILS # (AUTO) 0.1 K/uL (0.00-0.22); BASOPHILS % (AUTO) 0.3 % (0.0-2.0); EOSINOPHILS # (AUTO) 0.4 K/uL (0-0.4); EOSINOPHILS % (AUTO) 2.2 % (0.0-4.0); HEMATOCRIT 31.7 % (36-52); HEMOGLOBIN 10.4 g/dL (12.0-18.0); LYMPHOCYTES # (AUTO) 1.6 K/uL (2.0-11.5); LYMPHOCYTES % (AUTO) 9.5 % (20.5-51.1); MEAN CORPUSCULAR HEMOGLOBIN 29 pg (27-31); MEAN CORPUSCULAR HGB CONC 33 g/dL (33-37); MEAN CORPUSCULAR VOLUME 87.2 fL (80-94); MONOCYTES # (AUTO) 2.3 K/uL (0.8-1.0); MONOCYTES % (AUTO) 13.2 % (1.7-9.3); NEUTROPHILS % (AUTO) 74.8 % (42.2-75.2); PLATELET COUNT (AUTO) 184 K/uL (140-450); RED BLOOD CELL COUNT(AUTO) 3.64 MIL/uL (4.20-6.10); RED CELL DISTRIBUTION WIDTH 14.7 % (11.6-13.7); WHITE BLOOD COUNT (AUTO) 17.4 K/uL (4.8-10.8)
--- NOTE | 2020-03-21 07:17 | NUR ---
PT REMAINS ON DOCUMENTED SETTINGS, TRACH IS SECURED AND INTACT. VENT CHECK DONE, HME CHANGED. VENT PLUGGED INTO RED OUTLET, ALARMS ON AND FUNCTIONING, AMBU BAG AT BEDSIDE. WILL CONTINUE TO MONITOR.
[2020-03-21 07:23] LABS: ANION GAP 9.4 (8-16); CARBON DIOXIDE 35.1 mmol/L (21-32); CREATININE 0.8 mg/dL (0.6-1.3); POTASSIUM 3.5 mmol/L (3.5-5.1)
--- NOTE | 2020-03-21 07:32 | NUR ---
REPORT GIVEN TO AM SHIFT NURSE FOR CONTINUITY OF CARE. PATIENT STABLE AT THIS TIME
--- NOTE | 2020-03-21 07:35 | NUR ---
RECEIVED REPORT FROM PRIVACY ATTORNEY NURSE. PT IS CURRENTLY LAYING IN BED, EYES OPEN SPONTANEOUSLY, NAD. TRACH TO VENT. FIO2 30%, TV 400, PEEP 5, RATE 10, FLOW 35. RESPIRATIONS ARE EVEN AND UNLABORED. SACRAL WOUND WITH OPTIFOAM DRESSING C/D/I. WITH IV ASYMPTOMATIC, PATENT AND INFUSING PER ORDER. BED LOCKED & LOW, BEDRAILS UP, ALL OTHER SAFETY MEASURES IN PLACE AND WILL CONTINUE TO MONITOR. PENDING STOOL COLLECTION FOR C DIFF (COLLECT STOOL SIGN POSTED UP).
[2020-03-21 08:00] VITALS: BP 157/64
[2020-03-21] MEDS: ENOXAPARIN 40 MG/0.4 ML SYR SUBQ SCH (08:28)
--- NOTE | 2020-03-21 10:07 | NUR ---
FLAQUITO Daley made aware to collect stool sample when available
[2020-03-21 12:00] VITALS: BP 156/75
--- NOTE | 2020-03-21 12:11 | NUR ---
ASSISTED DRY CHAIN OPERATOR CORA WITH CLEANING, REPOSITIONING PT. ALSO PERFORMED WOUND CARE AND CHANGED DRESSING AT THIS TIME. D/C WOUND PHOTO TAKEN.
[2020-03-21] MEDS: Z-GUARD PASTE TP SCH (12:17)
--- NOTE | 2020-03-21 13:35 | NUR ---
PT STATES HE HAS ABD PAIN/BLOATING/CONSTIPATION. PER COMMITTEE MEMBER RN, PT HAD FORMED STOOL LAST NIGHT. OFFERED TO GIVE PT SUPPOSITORY OR COLACE--PT REFUSED. OFFERED MORPHINE FOR ABD PAIN--PT AGREED. WILL ADMIN MORPHINE PRN DOSE PER MD ORDERS.
[2020-03-21] MEDS: INSULIN LISPRO SLIDING SCALE 100 UNITS/ML VIAL SUBQ PRN (13:47)
[2020-03-21] MEDS: MORPHINE SULFATE 2 MG/ML SYR IVP PRN (13:47)
--- NOTE | 2020-03-21 13:50 | NUR ---
INFORMED PT THAT HE WILL BE GOING BACK TO [facility] BETWEEN 6-7PM TODAY, PT NODDED HIS HEAD TO SIGNIFY UNDERSTANDING.
--- NOTE | 2020-03-21 15:39 | NUR ---
REPORT GIVEN TO HARPREET SMITH AT [facility]
--- NOTE | 2020-03-21 15:46 | NUR ---
NOTIFIED [phone] PHYLLIS JIMENEZ ABOUT PLAN TO D/C TO [facility] TODAY AND D/C PLAN OF CARE. ANSWERED ALL QUESTIONS. Addendum: 03/21/20 at 1547 by Wendy Raman Meng RN [phone] PHYLLIS JIMENEZ (PERSON TO NOTIFY IN PT CHART)
[2020-03-21 16:00] VITALS: BP 152/73
--- NOTE | 2020-03-21 16:50 | NUR ---
PT REMAINS ON DOCUMENTED SETTINGS. TRACH IS SECURED AND INTACT. NO DISTRESS NOTED AT THIS TIME. VENT CHECK DONE, VENT PLUGGED INTO RED OUTLET, ALARMS ON AND FUNCTIONING, AMBU BAG AT BEDSIDE.
[2020-03-21] MEDS ORDERED: ZOS3.375I IV ×3 (16:56→17:37)
--- NOTE | 2020-03-21 18:16 | NUR ---
REPORT TO [facility] AT BEDSIDE
== END 2020-03-21 18:25 | DRG 130 ==
LOC: MED 01:10 → MTU 03:38 → EEVIPCON 03:38
PROVIDERS: ADMIT Internal Medicine; ATTEND Internal Medicine
PROC: 5A1955Z Respiratory Ventilation, Greater than 96 Consecutive Hours (ICD-10-PCS; principal; 2020-03-15)
DX: J96.21 Acute and chronic respiratory failure with hypoxia (principal); J69.0 Pneumonitis due to inhalation of food and vomit; J15.6 Pneumonia due to other Gram-negative bacteria; E87.5 Hyperkalemia; M48.02 Spinal stenosis, cervical region; R13.10 Dysphagia, unspecified; Z93.1 Gastrostomy status; Z99.11 Dependence on respirator [ventilator] status; J44.0 Chronic obstructive pulmonary disease with (acute) lower respiratory infection; E11.9 Type 2 diabetes mellitus without complications; K59.00 Constipation, unspecified; I10 Essential (primary) hypertension; D72.829 Elevated white blood cell count, unspecified; E78.5 Hyperlipidemia, unspecified; Z20.828 Contact with and (suspected) exposure to other viral communicable diseases; J40 Bronchitis, not specified as acute or chronic; E66.9 Obesity, unspecified; Z79.899 Other long term (current) drug therapy; Z79.84 Long term (current) use of oral hypoglycemic drugs; Z93.0 Tracheostomy status; Z68.25 Body mass index [BMI] 25.0-25.9, adult
CPT/HCPCS: 36415; 71045; 71250; 80048; 80053; 80202; 81001; 82948; 83605; 84484; 85025; 86140; 87040; 87070; 87081; 87086; 87205; 89220; 92526; 93005; 94002; 94003; 94640; 96365; 96367; 96375; 99285; C1758; J0360; J1650; J1815; J1956; J2060; J2270; J2543; J3370; J7030; J7060; J7613; J7644; Q0092; U0003-CS

== ENCOUNTER 2020-08-11 15:23 | Inpatient (IN) | payer OTHER ==
[2020-08-11] VITALS (10 sets, daily range): BP systolic 87–140; BP diastolic 38–66
[~2020-08-11] VITALS: Ht 177.8 cm; Wt 94.8 kg
[~2020-08-11 15:23] MED LIST changes: +ACET-1182 PO; -ACET-2619 PO; -ASCO500T45 PO; +ASCO500T95 PO; -BACL10TA4 PO; -BISA-213 RC; -CARB1TER4 PO; +CYCL-654 PO; +CYCL10TA14 PO; +GABA250S1 PO; -GABA600T11 PO; +GLUC-805 FS; +HUMSLIDE SUBQ; +LANS15EC28 PO; -LANS30EC68 PO; -LIDO5TDM59 TP; +LISI10TA11 PO; +LORA-476 PO; -LORA10TA19 PO; -MAGN400S60 PO; +MIRABULK PO; -NA P133E RC; -OXYC15TA2 PO; +PANT40EC GT; +PIPE1SOL IV; -PIRO10CA PO; -POLY17PD46 PO; +PRED20TA5 PO; +PUL.5N INH; +SIMV10TA1 PO; -SIMV10TA93 PO; -VAN1I; +VIT1CAPS9 PO; -Vancomycin Per Pharmacy MC; -ZOS3.375I IV; +[UNRECOGNIZED DRUG - CODE] PO; -[UNRECOGNIZED DRUG - CODE] PO
--- NOTE | 2020-08-11 15:23 | NUR ---
BIBA TAKEN TO BED 8
--- NOTE | 2020-08-11 15:24 | NUR ---
RT AT BEDSIDE.
[2020-08-11] MEDS ORDERED: IPRATROPIUM 0.02% 0.5 MG/2.5 ML NEBU INH ONE (15:30)
[2020-08-11] MEDS ORDERED: ALBUTEROL 0.083% 2.5 MG/3 ML NEBU INH ONE (15:30)
[2020-08-11] MEDS ORDERED: ALBUTEROL SULFATE/IPRATROPIU 3 ML SOL IH ONE (15:30)
--- NOTE | 2020-08-11 15:43 | NUR ---
LAB AT BEDSIDE.
--- NOTE | 2020-08-11 15:49 | NUR ---
PER DR. MAHER, PT DOES NOT NEED A HEAD CT, SX STARTED YESTERDAY.
--- NOTE | 2020-08-11 15:49 | NUR ---
XR AT BEDSIDE.
[2020-08-11] MEDS ORDERED: SIMV10TA1 PO (15:50)
[2020-08-11] MEDS ORDERED: AMLO10TA PO (15:50)
[2020-08-11] MEDS ORDERED: PANT40EC PO (15:50)
[2020-08-11] MEDS ORDERED: TIZA2CAP PO (15:50)
[2020-08-11] MEDS ORDERED: LORA10TA19 PO (15:50)
[2020-08-11] MEDS ORDERED: LORA-476 PO (15:57)
[2020-08-11] MEDS ORDERED: SENN-73 PO (15:57)
--- NOTE | 2020-08-11 16:02 | NUR ---
60 Y/M BIBA FROM [facility] WITH C/O HYPOXIA STARTING AT 1415. PER FACILITY PT O2 SATURATION WAS DOWN TO 82%. EMS ARRIVED ON SCENE, BEGAN BAGGING PT WITH BVM AND O2 SAT INCREASED TO 97%. EMS ALSO REPORTS BLEEDING STARTED OUT OF LEFT EAR AND RIGHT PUPIL IS LARGER THAN THE LEFT. PT NONVERBAL. TRACH TO VENT. RR EVEN AND LABORED. SKIN WARM AND DIAPHORETIC. EDEMA TO B UPPER EXTREMITY AND LOWER EXTREMITY. ABD LARGE AND DISTENDED. PULSES 2+ AND BOUNDING. HX CHRONIC RESPIRATORY FAILURE, DM, ANXIETY, HYPOTHYROIDISM, INSOMIA,HTN, DEPRESSION, VENT TO TRACH DEPENDENT
[2020-08-11 16:12] LABS: HEMATOCRIT 33.7 % (36-52); HEMOGLOBIN 10.4 g/dL (12.0-18.0); MEAN CORPUSCULAR HEMOGLOBIN 28 pg (27-31); MEAN CORPUSCULAR HGB CONC 31 g/dL (33-37); MEAN CORPUSCULAR VOLUME 89.3 fL (80-94); PLATELET COUNT (AUTO) 279 K/uL (140-450); RED BLOOD CELL COUNT(AUTO) 3.77 MIL/uL (4.20-6.10)
[2020-08-11 16:18] LABS: WHITE BLOOD COUNT (AUTO) 32.8 K/uL (4.8-10.8)
[2020-08-11] MEDS ORDERED: LEVOFLOXACIN 500 MG/D5W PREMIX 100 ML IV ONE (16:20)
[2020-08-11 16:21] LABS: C-REACTIVE PROTEIN QUANT 3.7 mg/dL (0.0-0.9)
[2020-08-11 16:23] LABS: PROTHROMBIN TIME 9.7 secs (10.8-13.4)
[2020-08-11 16:30] LABS: ALBUMIN 3.4 g/dL (3.4-5.0); ANION GAP 6.6 (8-16); CARBON DIOXIDE 38.9 mmol/L (21-32); POTASSIUM 5.5 mmol/L (3.5-5.1); TOTAL BILIRUBIN 0.2 mg/dL (0.0-1.0)
[2020-08-11 16:38] LABS: LACTATE DEHYDROGENASE 223 U/L (85-227)
--- NOTE | 2020-08-11 16:39 | NUR ---
PER VERBAAL ORDER INSTERDED # 16 FR Barrera catheter with 30 ml utilizing sterile technique. Immediate return of CLEAR urine noted. Bedside drainage bag placed below level of bladder. Urine sample collected and sent to lab. Pt tolerated procedure WELL.
[2020-08-11 16:42] LABS: APPEARANCE,URINE CLEAR (CLEAR); BILIRUBIN,URINE NEGATIVE (NEGATIVE); BLOOD, URINE NEGATIVE (NEGATIVE); COLOR,URINE YELLOW (YELLOW); LEUKOCYTE ESTERASE ,URINE NEGATIVE (NEGATIVE); NITRITE, URINE NEGATIVE (NEGATIVE); PH,URINE 6.5 (5.0-9.0); UGLUCOSE NEGATIVE (NEGATIVE)
--- NOTE | 2020-08-11 16:42 | NUR ---
RT AT BEDSIDE FOR ABG.
[2020-08-11 16:55] LABS: EOSINOPHILS % (MANUAL) 2 % (0-4); LYMPHOCYTES % (MANUAL) 16 % (20-46); MONOCYTES % (MANUAL) 8 % (5-12)
[2020-08-11] MEDS ORDERED: VANCOMYCIN 1,000 MG in DEXTROSE 5% 250 ML IV ONE (17:05)
[2020-08-11] MEDS ORDERED: VANCOMYCIN 1,000 MG VIAL ONE (17:08)
--- NOTE | 2020-08-11 17:18 | NUR ---
AT BEDSIDE ASSISTING DR. MAHER WITH CENTRAL LINE.
--- NOTE | 2020-08-11 17:18 | NUR ---
REVIEWED [facility]G SAMPL REPORT WITH DR. MAUDE MAHER NEW ORDER: INCREASE RATE TO 20 BPM
[2020-08-11] MEDS ORDERED: SODIUM BICARBONATE 8.4% PFS 50 MEQ/50 ML SYR IVP ONE (17:50)
[2020-08-11] MEDS ORDERED: NACL 0.9% 2,000 ML IV ONE (17:55)
--- NOTE | 2020-08-11 17:56 | NUR ---
PATIENT RETURNED FROM CT AND PLACED BACK IN BED 8.
--- NOTE | 2020-08-11 18:06 | NUR ---
STAT LACTIC REDRAWN AND WALKED OVER TO LAB BY LUIS ANAYA.
[2020-08-11] MEDS ORDERED: SODIUM BICARBONATE 8.4% 100 MEQ in DEXTROSE 5% 1,000 ML IV STA (18:10)
--- NOTE | 2020-08-11 18:42 | NUR ---
CALLED HOUSE SUP FOR SODIUM BICARB, STATED SHE WOULD BRING IT OVER.
--- NOTE | 2020-08-11 18:47 | NUR ---
RECEIVED PATIENT FROM DAY SHIFT ON PC [id number]. PEEP 16, 100 PERCENT. VENT PLUUGED INTO RED OUTLET. BMV AT BEDSIDE. TRACH SECURED. ALARMS SET. NO RESPIRATORY DISTRESS NOTED. PEAK PRESSURES WERE IN THE HIGH 60S. TITRATED PEEP DOWN TO 10. DR. MAHER AWARE. WILL CONTINUE TO MONITOR
--- NOTE | 2020-08-11 19:02 | NUR ---
PER VERBAL ORDER OF DR. MAHER TURNED ON REGULAR SUCTION FROM NG AND OUTPUT OF 300ML OBTAINED IN CANISTER. SUCTION THEN TURNED TO INTERMITTENT.
--- NOTE | 2020-08-11 19:09 | NUR ---
Pt report given to LUIS COLINDRES. Transfer of care at this time.
--- NOTE | 2020-08-11 19:09 | NUR ---
REPORT TAKEN FROM LUIS KHALIL FOR CONTINUATION OF CARE.
--- NOTE | 2020-08-11 19:12 | NUR ---
RT AT BEDSIDE.
--- NOTE | 2020-08-11 19:26 | NUR ---
Spoke with Bala RT about the vent alarming, pt's current saO2 is 99%, RT stated that he will come check on pt shortly.
[2020-08-11] MEDS ORDERED: MORPHINE SULFATE 2 MG/ML SYR IVP PRN (19:30)
[2020-08-11] MEDS ORDERED: ONDANSETRON 4 MG/2 ML VIAL IVP PRN (19:30)
[2020-08-11] MEDS ORDERED: ACETAMINOPHEN 325 MG TAB PO PRN (19:30)
[2020-08-11] MEDS ORDERED: VANCOMYCIN PER PHARMACY MC PRN (19:35)
--- NOTE | 2020-08-11 20:00 | NUR ---
TITRATED PEEP FROM 10 TO 8. VITAL SIGN STABLE. WILL CONT TO MONITOR
--- NOTE | 2020-08-11 20:03 | NUR ---
TRANSPORT REPORT WAS GIVEN TO LUIS STUART IN THE ICU FOR TRANSFER OF CARE.
--- NOTE | 2020-08-11 20:03 | NUR ---
Parris villarreal in [facility] - 08/11/20 at 2043 by SONI TRANSPORT REPORT WAS GIVEN TO LUIS STUART IN THE ICU FOR TRANSFER OF CARE.
--- NOTE | 2020-08-11 20:30 | NUR ---
RECEIVED PT FROM LUIS COLINDRES FROM ER, PT TRACH TO VENT AC/PC FIO2 100% RR 20 PEEP 6, S1 AND S2 HEART SOUNDS EHARD, PULSES PALPABLE UPPER AND LOWER EXTREMITIES, PT NON RESPONSIVE TO VERBAL STIMULI, WITHDRAWS FROM PAINFUL STIMULI, EYES UNEQUAL RIGHT EYE 3MM LEFT EYE 2MM SLUGGISH RESPONSE, BLEEDING NOTED FROM LEFT EAR, ABDOMEN SOFT AND ROUND BOWEL SOUNDS ACTIVE X4 QUADRANTS, SKIN NON INTACT WITH SACRAL WOUND IN PLACE WILL REASSESS AND MEASURE WOUND, VILLEGAS CATHETER IN PLACE DRAINING CLEAR YELLOW URINE, NO SIGNS OF DISTRESS OBSERVED, VSS, SAFETY PROTOCOL IN PLACE, WILL CONTINUE TO MONITOR PT
--- NOTE | 2020-08-11 20:30 | NUR ---
Patient will be admitted to care of . Admited to ICU. Will go to room 1. Belongings list completed. Report to LUSI STUART.
[2020-08-11] MEDS: NACL 0.9% 1,000 ML IV SCH (20:45)
--- NOTE | 2020-08-11 20:45 | NUR ---
TITRATED PEEP FROM 8 TO 6. VITAL SIGNS REMAIN STABLE. SATURATION IS 100%. RN NARCISO AWARE. WILL CONT TO MONITOR
[2020-08-11] MEDS: PIPERACILLIN/TAZOBACTAM 3.375 GM in DEXTROSE 5% 50 ML IV SCH (21:13)
[2020-08-11] MEDS ORDERED: PIPERACILLIN/TAZOBACTAM 3.375 GM VIAL IV ONE (21:21)
[2020-08-11] MEDS ORDERED: NOREPINEPHRINE 8 MG in DEXTROSE 5% 250 ML IV PRN (22:30)
[2020-08-11] MEDS ORDERED: NOREPINEPHRINE 4 MG/4 ML VIAL IV ONE (22:39)
--- NOTE | 2020-08-11 22:45 | NUR ---
SPOKE WITH DR. POWERS FOR PT SBP BELOW 90 ORDERS FOR LEVOPHED RECEIVED
[2020-08-12] VITALS (79 sets, daily range): BP systolic 72–164; BP diastolic 19–96
[2020-08-12] MEDS ORDERED: levETIRAcetam 1,000 MG in NACL 0.9% 100 ML IV SCH ×2 (00:40→09:00)
[2020-08-12] MEDS ORDERED: levETIRAcetam 100 MG/ML VIAL IV ONE (00:44)
[2020-08-12] MEDS ORDERED: DOPamine 400 MG/D5W PREMIX 250 ML IV ONE (00:51)
[2020-08-12] MEDS: DOPamine 400 MG/D5W PREMIX 250 ML IV PRN ×3 (01:03→12:11)
--- NOTE | 2020-08-12 01:11 | NUR ---
AT APPROXIMATELY 0023 PT STARTED TO HAVE A SEIZURE, LASTING APPROXIMATELY 1 MIN, START OF SEIZURE WITNESSED BY RT GABRIELLE WHO IMMEDIATELY INFORMED RN, POST SEIZURE PT HR DROPPED INTO LOW 40S AND WOULD ONLY MOMENTARILY COME UP TO 50S ON MONITOR, RADIAL PULSE PALPATED FOR 1 MIN PULSE WAS FOUND TO BE 50. DR. POWERS CALLED AND INFORMED OF SEIZURE, AND LOW HR, ORDERS FOR DOPAMINE DRIP AND KEPPRA RECEIVED, WILL CONTINUE TO MONITOR PT.
[2020-08-12] MEDS ORDERED: PIPERACILLIN/TAZOBACTAM 3.375 GM VIAL IV ONE (04:08)
[2020-08-12] MEDS ORDERED: VANCOMYCIN 500 MG VIAL ONE (04:09)
[2020-08-12] MEDS ORDERED: VANCOMYCIN 1,000 MG VIAL ONE (04:09)
[2020-08-12] MEDS: PIPERACILLIN/TAZOBACTAM 3.375 GM in DEXTROSE 5% 50 ML IV SCH ×2 (04:30→13:43)
[2020-08-12] MEDS ORDERED: VANCOMYCIN 1,500 MG in DEXTROSE 5% 500 ML IV ONE (05:00)
[2020-08-12] MEDS ORDERED: VANCOMYCIN 1GM/DEXT 5% PREMIX 200 ML IV ONE (05:00)
--- NOTE | 2020-08-12 05:26 | NUR ---
FI02 TRITATED TO 50 PERCENT. VITAL SIGNS REMAIN STABLE. PATIENT IS STILL RECEIVING LOW TIDAL VOLUMES. WILL CONT TO MONITOR
--- NOTE | 2020-08-12 05:33 | NUR ---
SPOKE WITH DR. POWERS INFORMED HIM PT LEFT EAR STILL BLEEDING, PT HAS NO GAG REFLEX WHILE SUCTIONING PT, AND EYES ARE NONREACTIVE AT 7MM, RECEIVED ORDERS FOR STAT CT HEAD AND CT SINUS
[2020-08-12] MEDS ORDERED: NOREPINEPHRINE 4 MG/4 ML VIAL IV ONE (06:05)
[2020-08-12 06:26] LABS: HEMATOCRIT 29.5 % (36-52); MEAN CORPUSCULAR HEMOGLOBIN 29 pg (27-31); MEAN CORPUSCULAR HGB CONC 30 g/dL (33-37); MEAN CORPUSCULAR VOLUME 94.6 fL (80-94); PLATELET COUNT (AUTO) 248 K/uL (140-450); RED BLOOD CELL COUNT(AUTO) 3.12 MIL/uL (4.20-6.10); RED CELL DISTRIBUTION WIDTH 15.5 % (11.6-13.7)
[2020-08-12 06:37] LABS: WHITE BLOOD COUNT (AUTO) 27.4 K/uL (4.8-10.8)
--- NOTE | 2020-08-12 06:40 | NUR ---
PT TAKEN TO CT WITH TECH AND RT
--- NOTE | 2020-08-12 07:08 | NUR ---
RECEIVED CALL FROM LAB PT PT HAS 6.[address] POWERS WAS PAGE.
[2020-08-12 07:09] LABS: ANION GAP 9.1 (8-16); CREATININE 1.5 mg/dL (0.6-1.3)
--- NOTE | 2020-08-12 07:10 | NUR ---
RECIEVED REPOT FROM NARCISO ,PT. CONDITION IS CRITICAL .HAS CENTRAL LINE ON RT FEM. INFUSING NOREPHINEPRINE AT 30MCG/MIN AND DOPAMINE 30 MCG/KG/MIN HIS BP 75/41 .HRIS TRACH TO VENT. TEMP FROM ORTHODOX SCAN 85.[address] ON WARM BLANKET.
[2020-08-12 07:13] LABS: POTASSIUM 6.1 mmol/L (3.5-5.1)
--- NOTE | 2020-08-12 07:28 | NUR ---
BRADYCARDIC HR 43 UNABLE TO OBTAIN THE PULE. CODE SAGE WAS CALLED PLEASE READ EDNA CAZARES RECORD AND RESUCITATION AND DOCUMENTATION.
[2020-08-12 07:32] LABS: PHOSPHORUS 9.1 mg/dL (2.5-4.9)
--- NOTE | 2020-08-12 07:37 | NUR ---
CODE BLUE END. PT SURVIVED HR118 BP98/64.
--- NOTE | 2020-08-12 07:40 | NUR ---
PATIENT FRIEND PHYLLIS JIMENEZ WAS CALL TO INFORM ABOUT PT. CONDITION AFTER CODE BLUE AND TALK TO PRIYA TEJEDA REGARDING PT. CONDITION.
[2020-08-12] MEDS ORDERED: VASOPRESSIN 20 UNITS in NACL 0.9% 250 ML IV SCH (07:50)
[2020-08-12] MEDS ORDERED: PHENYLEPHRINE 10 MG in NACL 0.9% 250 ML IV PRN (07:50)
[2020-08-12 07:57] LABS: LYMPHOCYTES % (MANUAL) 7 % (20-46); MONOCYTES % (MANUAL) 13 % (5-12)
[2020-08-12] MEDS ORDERED: SODIUM BICARBONATE 8.4% PFS 50 MEQ/50 ML SYR IVP ONE ×2 (08:00→09:15)
[2020-08-12] MEDS: SODIUM BICARBONATE 8.4% 100 MEQ in DEXTROSE 5% 1,000 ML IV SCH ×2 (08:15→16:18)
[2020-08-12] MEDS ORDERED: LORazepam 2 MG/ML VIAL ONE (08:45)
[2020-08-12] MEDS ORDERED: fentaNYL citrate 1 MG in NACL 0.9% 80 ML IV PRN (08:45)
[2020-08-12] MEDS ORDERED: LORazepam 2 MG/ML VIAL IVP SCH (08:49)
[2020-08-12] MEDS: NACL 0.9% 1,000 ML IV SCH (08:50)
--- NOTE | 2020-08-12 08:50 | NUR ---
PATIENT HAVING SEIZURE, ATIVAN GIVEN 2 MG VIA IVP GIVEN AT THIS TIME PER DR. POWERS.
[2020-08-12] MEDS ORDERED: fentaNYL citrate - 50mL vial 2.5 MG in NACL 0.9% 200 ML IV PRN (08:55)
[2020-08-12] MEDS ORDERED: ENOXAPARIN 40 MG/0.4 ML SYR SUBQ SCH (09:00)
[2020-08-12] MEDS ORDERED: SEVELAMER CARBONATE 0.8 GM NG SCH ×2 (09:00→13:00)
--- NOTE | 2020-08-12 09:03 | NUR ---
AT BEDSIDE WITH RN, LOW MIN VENTILATION AND LOW VT, PER DR FRIEDMAN KEEP INS. PRESSURE BELOW 50, VENT SETTINGS, PC 40, RATE 30, FIO2 100% PEEP 8 INSP 0.8, WILL CONTINUE TO MONITOR, NO REPEAT BAG AT THIS TIME.
[2020-08-12] MEDS ORDERED: DEXTROSE 50% 50 ML SYR IVP ONE (09:15)
[2020-08-12] MEDS ORDERED: CALCIUM CHLORIDE 10% 100 MG/ML SYR IVP ONE ×2 (09:15→16:53)
[2020-08-12] MEDS ORDERED: INSULIN REGULAR, HUMAN 100 UNIT/ML VIAL IVP ONE (09:15)
--- NOTE | 2020-08-12 09:51 | NUR ---
SCHEDULED KEPPRA DUE GIVEN. WILL CONTINUE TO MONITOR.
[2020-08-12 10:27] LABS: ANION GAP 14.6 (8-16); CARBON DIOXIDE 31.5 mmol/L (21-32); CREATININE 1.7 mg/dL (0.6-1.3); POTASSIUM 5.1 mmol/L (3.5-5.1)
--- NOTE | 2020-08-12 10:27 | NUR ---
ABG completed CO2, HCO3, BE values outside critical value range, no values with record
[2020-08-12] MEDS ORDERED: SODIUM ZIRCONIUM CYCLOSILICATE 10 GM POWD.PACK NG SCH (11:09)
--- NOTE | 2020-08-12 11:28 | NUR ---
PT SPO2 100%, TITRATE FIO2 TO 85%, SPO2 99%, WILL CONTINUE TO MONITOR, RN AWARE.
[2020-08-12] MEDS ORDERED: INSULIN REGULAR, HUMAN 100 UNIT in NACL 0.9% 100 ML IV SCH ×2 (12:00)
--- NOTE | 2020-08-12 12:08 | NUR ---
INSULIN DRIP X [address] POWERS ORDERS. WILL CONTINUE TO MONITOR.
[2020-08-12] MEDS ORDERED: SEVELAMER CARBONATE 800 MG TAB PO SCH (13:00)
--- NOTE | 2020-08-12 13:43 | NUR ---
SCHEDULED MEDICATIONS DUE GIVEN. WILL CONTINUE TO MONITOR.
--- NOTE | 2020-08-12 14:01 | NUR ---
SCHEDULED MEDICATIONS DUE GIVEN. WILL CONTINUE TO MONITOR.
[2020-08-12] MEDS ORDERED: NOREPINEPHRINE 16 MG in DEXTROSE 5% 250 ML IV PRN (14:10)
--- NOTE | 2020-08-12 15:19 | NUR ---
CONTINUING TO TITRATE FIO2 INDICATED, FIO2 60%, SPO2 99%, RN AWARE.
[2020-08-12] MEDS ORDERED: EPINEPHrine PFS 0.1 MG/ML SYR IVP ONE (16:53)
[2020-08-12] MEDS ORDERED: AMIODARONE 150 MG/3 ML VIAL IV ONE (16:53)
[2020-08-12 16:59] LABS: ANION GAP 15.2 (8-16); CARBON DIOXIDE 29.4 mmol/L (21-32); CREATININE 2.1 mg/dL (0.6-1.3); POTASSIUM 4.6 mmol/L (3.5-5.1)
[2020-08-12] MEDS ORDERED: NACL 0.45% 1,000 ML IV SCH (17:05)
[2020-08-12] MEDS ORDERED: PHENYLEPHRINE 10 MG/ML VIAL ONE (17:06)
[2020-08-12] MEDS ORDERED: AMIODARONE 450 MG in DEXTROSE 5% 250 ML IV SCH (17:15)
--- NOTE | 2020-08-12 17:30 | NUR ---
CALLED TO BEDSIDE x3 for code blue, ACLS preformed with ROSC, pt placed back on ventilator, trach secure and intact, will continue to monitor pt.
[2020-08-12] MEDS ORDERED: AMIODARONE 450 MG/9 ML VIAL IV ONE (17:34)
--- NOTE | 2020-08-12 17:45 | NUR ---
PHYLLIS ALBARRAN HIS FRIEND WAS CALL TO INFORM ABOUT PT. CRITICAL CONDITION.
[2020-08-12] MEDS ORDERED: VANCOMYCIN 1,000 MG in DEXTROSE 5% 250 ML IV SCH (18:00)
--- NOTE | 2020-08-12 18:40 | NUR ---
DR. HEATH CALL AND INFORM HIM REGARDING PT. CONDITION AND S/P CODE BLUE.
--- NOTE | 2020-08-12 19:10 | NUR ---
GAVE REPORT TO PEEL OVEN TENDER NURSE. PATIENT IN CRITICAL CONDITION.
--- NOTE | 2020-08-12 19:15 | NUR ---
PATIENT WENT INTO ASYSTOLE; NO PULSE APPRECIATED; PRONOUNCED BY DR. ALEJO.
--- NOTE | 2020-08-12 20:30 | NUR ---
[facility] WAS NOTIFIED WELL PATIENT'S FRIEND PHYLLIS ANTHONYAS SINCE NO FAMILY FOR THIS PATIENT.; DR. CONTEH WAS ALSO NOTIFIED..
--- NOTE | 2020-08-13 | NUR ---
BODY WAS SENT TO [facility] SINCE PATIENT HAS NO FAMILY. PATIENTS' FRIEND PHYLLIS ANTHONYAS WAS INFORMED AND AWARE; AND HE SAID HE HAS FINANCIAL MEANS TO SEND THE BODY TO A HOME.
[2020-08-13] MEDS ORDERED: Z-GUARD PASTE TP SCH (01:00)
--- NOTE | 2020-08-13 09:02 | NUR ---
A message left to [place] [place] [phone] regarding patient and has no family only a friend and the fried does not have money for burial services.
== END 2020-08-13 02:27 | disposition expired | DRG 720 ==
LOC: MED 15:23 → MLD 19:32 → MIC 20:04
PROVIDERS: ADMIT Hospitalist; ATTEND Hospitalist
PROC: 5A1935Z Respiratory Ventilation, Less than 24 Consecutive Hours (ICD-10-PCS; principal; 2020-08-11)
PROC: 06HY33Z Insertion of Infusion Device into Lower Vein, Percutaneous Approach (ICD-10-PCS; 2020-08-11)
PROC: B54BZZA Ultrasonography of Right Lower Extremity Veins, Guidance (ICD-10-PCS; 2020-08-11)
PROC: 5A12012 Performance of Cardiac Output, Single, Manual (ICD-10-PCS; 2020-08-12)
DX: A41.9 Sepsis, unspecified organism (principal); J96.21 Acute and chronic respiratory failure with hypoxia; J96.22 Acute and chronic respiratory failure with hypercapnia; E66.2 Morbid (severe) obesity with alveolar hypoventilation; E87.5 Hyperkalemia; G93.41 Metabolic encephalopathy; I10 Essential (primary) hypertension; R00.1 Bradycardia, unspecified; I46.9 Cardiac arrest, cause unspecified; J18.9 Pneumonia, unspecified organism; J44.0 Chronic obstructive pulmonary disease with (acute) lower respiratory infection; J84.10 Pulmonary fibrosis, unspecified; M48.02 Spinal stenosis, cervical region; N17.9 Acute kidney failure, unspecified; R56.9 Unspecified convulsions; Z20.828 Contact with and (suspected) exposure to other viral communicable diseases; Y95 Nosocomial condition; E11.65 Type 2 diabetes mellitus with hyperglycemia; E78.5 Hyperlipidemia, unspecified; E86.0 Dehydration; Z87.891 Personal history of nicotine dependence; Z93.0 Tracheostomy status; Z99.11 Dependence on respirator [ventilator] status; Z79.82 Long term (current) use of aspirin; Z79.84 Long term (current) use of oral hypoglycemic drugs; Z79.899 Other long term (current) drug therapy; Z68.30 Body mass index [BMI] 30.0-30.9, adult
CPT/HCPCS: 36415; 36556; 36600; 70450; 70486; 71045; 71275; 80048; 80053; 81003; 82550; 82803; 83605; 83615; 83735; 83880; 84100; 84484; 85025; 85610; 85730; 86140; 87040; 87070; 87081; 87086; 87205; 89220; 93005; 94002; 94003; 94640; 96365; 96366; 96368; 96375; 99291; J0171; J0282; J1265; J1815; J1953; J1956; J2060; J2370; J2543; J3010; J3370; J3490; J7030; J7060; J7613; J7644; Q9967; U0003